=== PATIENT | female | born 1985 | race Caucasian/White ===

== ENCOUNTER 2022-11-15 14:54 | Emergency (ER) | payer MEDICAID, SELFPAY ==
[2022-11-15] VITALS (30 sets, daily range): BP systolic 113–159; BP diastolic 67–116; PULSE 96–136; RESP 16–24; TEMP 36.7; O2SAT 93–99; BMI 42.4
--- NOTE | 2022-11-15 15:56 | CTR_ITS ---
PROCEDURE INFORMATION: Exam: CT Abdomen And Pelvis Without Contrast Exam date and time: 11/15/2022 5:06 PM Age: 37 years old Clinical indication: Abdominal pain; Generalized; Prior surgery; Surgery date: 6+ months; Surgery type: Barbie, hyst TECHNIQUE: Imaging protocol: Computed tomography of the abdomen and pelvis without contrast. Radiation optimization: All CT scans at this facility use at least one of these dose optimization techniques: automated exposure control; mA and/or kV adjustment per patient size (includes targeted exams where dose is matched to clinical indication); or iterative reconstruction. REPORTING DATA: Count of CT and Cardiac NM exams in prior 12 months: This patient has received 0 known CTs and 0 known cardiac nuclear medicine studies in the 12 months prior to the current study. COMPARISON: No relevant prior studies available. RADIATION DOSE METRICS: Total DLP (mGy-cm): 993 FINDINGS: Lungs: No infiltrate or effusion is seen within the visualized lung bases. Liver: Normal. No mass. Gallbladder and bile ducts: Surgical clips within the gallbladder fossa, prior cholecystectomy. No biliary ductal dilatation. Pancreas: Normal. No ductal dilation. Spleen: Normal. No splenomegaly. Adrenal glands: Normal. No mass. Kidneys and ureters: Subtle punctate nonobstructing right renal calculus. Kidneys appear unremarkable otherwise. Stomach and bowel: Unremarkable. No obstruction. No mucosal thickening. Appendix: No evidence of appendicitis. Intraperitoneal space: Unremarkable. No free air. No significant fluid collection. Vasculature: Unremarkable. No abdominal aortic aneurysm. Lymph nodes: Unremarkable. No enlarged lymph nodes. Urinary bladder: Suboptimal urinary bladder distention Reproductive: Suggestion of prior hysterectomy. Bones/joints: No acute osseous abnormality. Soft tissues: Tiny umbilical hernia fat. CT/CT abdomen pelvis wo con [id number] IMPRESSION: 1. Previous cholecystectomy and hysterectomy. 2. Subtle tiny punctate nonobstructing right renal calculus. 3. Urinary bladder is suboptimally distended with the exam. 4. No acute findings.
--- NOTE | 2022-11-15 15:56 | W.ED.NAVMDI ---
Documented by User: Stanislav Rudd DO 11/16/22 06:00 HPI - Nausea/Vomiting/Diarrhea General: Chief complaint: Nausea/Vomiting/Diarrhea Stated complaint: N/V, Right side abd pain Time Seen by Provider: 11/15/22 15:45 Source: patient Mode of arrival: ambulatory History of Present Illness: 37-year-old female presents emergency room complaining of right lower quadrant abdominal pain. States that she has had nausea vomiting for last 4 days the pain is progressively gotten worse specially in the last 24 hours. She has been vomiting multiple times she denies any medication melena hematemesis cough cramps no dysuria urgency or frequency she has noticed if she presses on the side it will help but when she lets up the pain intensifies significantly. No hematemesis or coffee-ground emesis MD elicited complaint: nausea and vomiting Onset (ago): day(s) (4) Description of vomiting: watery and bilious Associated nausea: Yes Associated abdominal pain: Yes Location of pain: None Radiation: diffuse Severity: mild Quality: cramping Exacerbating factors: none Relieving factors: none Associated symtoms: Reports bloating and nausea; Denies anxiety, change in vision, chest pain, cough, diaphoresis, decreased urine output, dizziness, dysuria, epistaxis, fatigue, fecal incontinence, fevers/chills, headache(s), anorexia, malaise, myalgias, numbness, palpitations, rash, short of breath, syncope, tenesmus, tinnitus or weakness Review of Systems Const: Denies: fever(s), fatigue, malaise or diaphoresis Eyes: Denies: change in vision ENMT: Denies: tinnitus or epistaxis Card: Denies: chest pain, palpitations or syncope Resp: Denies: dyspnea, productive cough or non-productive cough GI: Reports: abdominal pain, nausea, vomiting, bloating and GI cramping; Denies: hematemesis, diarrhea or fecal incontinence : Denies: dysuria Skin/Breast: Denies: rash or pruritus Neuro: Denies: headache(s) or dizziness Psych: Denies: anxiety PFSH ED PFSH: Surgical History (Updated 11/15/22 @ 15:59 by Stanislav Rudd DO) Hx of cholecystectomy Physical Exam Const: GENERAL APPEARANCE: cooperative and comfortable ORIENTATION/CONSCIOUSNESS: Yes awake, Yes oriented to person, Yes oriented to place and Yes oriented to time HENMT: COMMON NORMALS: normocephalic, atraumatic and hearing grossly normal bilaterally HEAD & SCALP: normocephalic and atraumatic Resp: COMMON NORMALS: normal respiratory effort, No retractions, No use of accessory muscles and clear to auscultation bilaterally AUSCULTATION: clear to auscultation bilaterally Cardio: COMMON NORMALS: regular rate, regular rhythm and No murmurs present (Cardio) RATE: regular rate RHYTHM: regular rhythm GI: COMMON NORMALS: No hepatosplenomegaly present AUSCULTATION: Yes normoactive bowel sounds PALPATION: Yes Tenderness to palpation present (GI) Details: RLQ, Yes Guarding due to palpation present (GI) in the RLQ and Yes No hepatosplenomegaly present Extremity: COMMON NORMALS: normal to inspection, capillary refill normal, no clubbing, cyanosis or edema, no calf tenderness and no pedal edema Neuro: SENSORIUM/ORIENTATION: Yes oriented to person, Yes oriented to place and Yes oriented to time Skin: COMMON NORMALS: no rashes or lesions noted GENERAL SKIN EXAM: no rashes or lesions noted Course Vital Signs: Vital signs: Vital Signs Temperature 98.1 F 11/15/22 20:27 Pulse Rate 96 11/15/22 20:27 Respiratory Rate 16 11/15/22 20:27 Blood Pressure 150/100 11/15/22 20:27 Pulse Oximetry 97 11/15/22 20:27 Oxygen Delivery Me thod Room Air 11/15/22 16:27 MDM - Nausea/Vomiting/Diarrhea Medical Decision Making Care signed out to Dr. Barksdale at change of shift. See final notes for diagnosis and disposition. Patient presents with lower abdominal pain here and did show trichomonas did a pelvic exam she had some slight discharge no signs of PID mild cervicitis did treat her with Rocephin azithromycin we will place her on Flagyl for home along with nausea medicine she is to follow-up with PCP and return if worsening. Lab Data 11/15/22 15:53 11/15/22 15:53 Radiology Impressions Abdomen/Pelvis CT 11/15/22 15:56 IMPRESSION: 1. Previous cholecystectomy and hysterectomy. 2. Subtle tiny punctate nonobstructing right renal calculus. 3. Urinary bladder is suboptimally distended with the exam. 4. No acute findings. Pelvis Ultrasound 11/15/22 18:02 IMPRESSION: 1. Surgical absence of the uterus and cervix. 2. Unable to visualize the right ovary. 3. 1.6 cm mildly irregular cyst of the left ovary. 4. No free fluid. 5. Unremarkable appearance of the appendix in the right lower quadrant. Laboratory Results WBC 10.1 10^3/uL (4.0-10.0) H 11/15/22 15:53 RBC 5.34 10^6/uL (4.1-5.3) H 11/15/22 15:53 Hgb 16.4 g/dL (11.5-15.3) H 11/15/22 15:53 Hct 46.9 % (37.0-47.0) 11/15/22 15:53 MCV 87.8 fl (81-99) 11/15/22 15:53 MCH 30.7 pg (28.0-34.0) 11/15/22 15:53 MCHC 35.0 g/dL (30.0-36.0) 11/15/22 15:53 RDW 11.6 % (12.1-15.1) L 11/15/22 15:53 Plt Count 183 10^3/cmm (130-400) 11/15/22 15:53 MPV 12.9 fL (7.4-10.4) H 11/15/22 15:53 Neut % (Auto) 64.4 % 11/15/22 15:53 Lymph % (Auto) 27.2 % 11/15/22 15:53 [place] % (Auto) 6.5 % 11/15/22 15:53 Eos % (Auto) 1.5 % 11/15/22 15:53 Baso % (Auto) 0.2 % 11/15/22 15:53 Neut # (Auto) 6.52 10^3/uL (1.8-7.7) 11/15/22 15:53 Lymph # (Auto) 2.8 10^3/uL (0.8-4.8) 11/15/22 15:53 Trinity # (Auto) 0.7 10^3/uL (0.2-0.9) 11/15/22 15:53 Eos # (Auto) 0.2 10^3/uL (0.0-0.8) 11/15/22 15:53 Baso # (Auto) 0.0 10^3/uL (0.0-0.1) 11/15/22 15:53 Nucleated RBC % (auto) 0 % 11/15/22 15:53 Nucleated RBCs # 0.0 /100WBC 11/15/22 15:53 Sodium 140 mmol/L (136-145) 11/15/22 15:53 Potassium 3.5 mmol/L (3.5-5.1) 11/15/22 15:53 Chloride 103 mmol/L (98-107) 11/15/22 15:53 Carbon Dioxide 26 mmol/L (22-29) 11/15/22 15:53 Anion Gap 14.5 (5-19) 11/15/22 15:53 BUN 10 mg/dL (6-20) 11/15/22 15:53 Creatinine 0.7 mg/dL (0.5-0.9) 11/15/22 15:53 GFR Calculation 94.2 mL/min (90-130) 11/15/22 15:53 Glucose 101 mg/dL (65-115) 11/15/22 15:53 Calculated Osmolality 289 mOsm/kg (285-295) 11/15/22 15:53 Calcium 9.3 mg/dL (8.5-10.5) 11/15/22 15:53 Total Bilirubin 0.4 mg/dL (0.15-1.2) 11/15/22 15:53 AST 24 U/L (0-32) 11/15/22 15:53 ALT 36 U/L (0-33) H 11/15/22 15:53 Alkaline Phosphatase 57 U/L (35-105) 11/15/22 15:53 Total Protein 6.7 g/dL (6.6-8.7) 11/15/22 15:53 Albumin 4.1 g/dL (3.5-5.2) 11/15/22 15:53 Globulin 2.6 g/dL (1.3-4.6) 11/15/22 15:53 Lipase 33 U/L (13-60) 11/15/22 15:53 HCG, Qual Negative (Negative) 11/15/22 15:53 Urine Color Yellow (Yellow) 11/15/22 17:00 Urine Appearance Hazy (CLEAR) A 11/15/22 17:00 Urine pH 9 (5-7) H 11/15/22 17:00 Ur Specific [place] 1.015 (1.005-1.030) 11/15/22 17:00 Urine Protein Neg (Negative) 11/15/22 17:00 Urine Glucose (UA) Norm (Normal) 11/15/22 17:00 Urine Ketones Negative (Negative) 11/15/22 17:00 Urine Blood Neg (Negative) 11/15/22 17:00 Urine Nitrate Negative (Negative) 11/15/22 17:00 Urine Bilirubin Neg (Negative) 11/15/22 17:00 Prot Sulfosalicylic Acd Negative (Negative) 11/15/22 17:00 Urine Urobilinogen 4 mg/dL (Negative) H 11/15/22 17:00 Ur Leukocyte Esterase Negative (Negative) 11/15/22 17:00 Urine RBC Rare /hpf (0-2) 11/15/22 17:00 Urine WBC Rare /hpf (0-5) 11/15/22 17:00 Ur Squamous Epith Cells 25-40 /hpf (0-5) H 11/15/22 17:00 Amorphous Sediment Not Reportable 11/15/22 17:00 Urine Bacteria Trace /hpf (NONE) 11/15/22 17:00 Urine Trichomonas 2+ /hpf H 11/15/22 17:00 Discharge Plan Discharge Patient Disposition: Home Clinical Impression: Abdominal pain, Infection due to trichomonas (vaginalis) Condition: Stable Prescriptions: New metronidazole 500 mg tablet 500 mg PO Q8H 7 Days Qty: 21 0RF ondansetron 4 mg tablet,disintegrating 4 mg PO Q6H PRN (Reason: nausea and vomiting) Qty: 14 0RF tramadol 50 mg tablet 50 mg PO Q8H PRN (Reason: pain) Qty: 20 0RF Discharge Orders: Discharge ED (Routine); Ordered 11/15/22 Ordered By: Chandler Jasso Referrals: Bryce Strickland FNP [Primary Care Provider] - 1-3 days Discharge Diet: Advance as tolerated Discharge Activity: Resume usual activity Patient Instructions: Trichomoniasis (ED), Abdominal Pain (ED), Opioid Safety Coding Level of Care 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 Fwd Documented by User: Chandler Jasso MD 11/15/22 20:32 HPI - Nausea/Vomiting/Diarrhea General: Chief complaint: Nausea/Vomiting/Diarrhea Stated complaint: N/V, Right side abd pain Time Seen by Provider: 11/15/22 15:45 PFSH ED PFSH: Surgical History (Updated 11/15/22 @ 15:59 by Stanislav Rudd DO) Hx of cholecystectomy Course Vital Signs: Vital signs: Vital Signs Temperature 98.1 F 11/15/22 20:27 Pulse Rate 96 11/15/22 20:27 Respiratory Rate 16 11/15/22 20:27 Blood Pressure 150/100 11/15/22 20:27 Pulse Oximetry 97 11/15/22 20:27 Oxygen Delivery Me thod Room Air 11/15/22 16:27 MDM - Nausea/Vomiting/Diarrhea Medical Decision Making Patient presents with lower abdominal pain here and did show trichomonas did a pelvic exam she had some slight discharge no signs of PID mild cervicitis did treat her with Rocephin azithromycin we will place her on Flagyl for home along with nausea medicine she is to follow-up with PCP and return if worsening. Medical Records I reviewed the patient's medical records. Lab Data I reviewed the patient's lab results. 11/15/22 15:53 11/15/22 15:53 Radiology Impressions Abdomen/Pelvis CT 11/15/22 15:56 IMPRESSION: 1. Previous cholecystectomy and hysterectomy. 2. Subtle tiny punctate nonobstructing right renal calculus. 3. Urinary bladder is suboptimally distended with the exam. 4. No acute findings. Pelvis Ultrasound 11/15/22 18:02 IMPRESSION: 1. Surgical absence of the uterus and cervix. 2. Unable to visualize the right ovary. 3. 1.6 cm mildly irregular cyst of the left ovary. 4. No free fluid. 5. Unremarkable appearance of the appendix in the right lower quadrant. Laboratory Results WBC 10.1 10^3/uL (4.0-10.0) H 11/15/22 15:53 RBC 5.34 10^6/uL (4.1-5.3) H 11/15/22 15:53 Hgb 16.4 g/dL (11.5-15.3) H 11/15/22 15:53 Hct 46.9 % (37.0-47.0) 11/15/22 15:53 MCV 87.8 fl (81-99) 11/15/22 15:53 MCH 30.7 pg (28.0-34.0) 11/15/22 15:53 MCHC 35.0 g/dL (30.0-36.0) 11/15/22 15:53 RDW 11.6 % (12.1-15.1) L 11/15/22 15:53 Plt Count 183 10^3/cmm (130-400) 11/15/22 15:53 MPV 12.9 fL (7.4-10.4) H 11/15/22 15:53 Neut % (Auto) 64.4 % 11/15/22 15:53 Lymph % (Auto) 27.2 % 11/15/22 15:53 Trinity % (Auto) 6.5 % 11/15/22 15:53 Eos % (Auto) 1.5 % 11/15/22 15:53 Baso % (Auto) 0.2 % 11/15/22 15:53 Neut # (Auto) 6.52 10^3/uL (1.8-7.7) 11/15/22 15:53 Lymph # (Auto) 2.8 10^3/uL (0.8-4.8) 11/15/22 15:53 Trinity # (Auto) 0.7 10^3/uL (0.2-0.9) 11/15/22 15:53 Eos # (Auto) 0.2 10^3/uL (0.0-0.8) 11/15/22 15:53 Baso # (Auto) 0.0 10^3/uL (0.0-0.1) 11/15/22 15:53 Nucleated RBC % (auto) 0 % 11/15/22 15:53 Nucleated RBCs # 0.0 /100WBC 11/15/22 15:53 Sodium 140 mmol/L (136-145) 11/15/22 15:53 Potassium 3.5 mmol/L (3.5-5.1) 11/15/22 15:53 Chloride 103 mmol/L (98-107) 11/15/22 15:53 Carbon Dioxide 26 mmol/L (22-29) 11/15/22 15:53 Anion Gap 14.5 (5-19) 11/15/22 15:53 BUN 10 mg/dL (6-20) 11/15/22 15:53 Creatinine 0.7 mg/dL (0.5-0.9) 11/15/22 15:53 GFR Calculation 94.2 mL/min (90-130) 11/15/22 15:53 Glucose 101 mg/dL (65-115) 11/15/22 15:53 Calculated Osmolality 289 mOsm/kg (285-295) 11/15/22 15:53 Calcium 9.3 mg/dL (8.5-10.5) 11/15/22 15:53 Total Bilirubin 0.4 mg/dL (0.15-1.2) 11/15/22 15:53 AST 24 U/L (0-32) 11/15/22 15:53 ALT 36 U/L (0-33) H 11/15/22 15:53 Alkaline Phosphatase 57 U/L (35-105) 11/15/22 15:53 Total Protein 6.7 g/dL (6.6-8.7) 11/15/22 15:53 Albumin 4.1 g/dL (3.5-5.2) 11/15/22 15:53 Globulin 2.6 g/dL (1.3-4.6) 11/15/22 15:53 Lipase 33 U/L (13-60) 11/15/22 15:53 HCG, Qual Negative (Negative) 11/15/22 15:53 Urine Color Yellow (Yellow) 11/15/22 17:00 Urine Appearance Hazy (CLEAR) A 11/15/22 17:00 Urine pH 9 (5-7) H 11/15/22 17:00 Ur Specific [place] 1.015 (1.005-1.030) 11/15/22 17:00 Urine Protein Neg (Negative) 11/15/22 17:00 Urine Glucose (UA) Norm (Normal) 11/15/22 17:00 Urine Ketones Negative (Negative) 11/15/22 17:00 Urine Blood Neg (Negative) 11/15/22 17:00 Urine Nitrate Negative (Negative) 11/15/22 17:00 Urine Bilirubin Neg (Negative) 11/15/22 17:00 Prot Sulfosalicylic Acd Negative (Negative) 11/15/22 17:00 Urine Urobilinogen 4 mg/dL (Negative) H 11/15/22 17:00 Ur Leukocyte Esterase Negative (Negative) 11/15/22 17:00 Urine RBC Rare /hpf (0-2) 11/15/22 17:00 Urine WBC Rare /hpf (0-5) 11/15/22 17:00 Ur Squamous Epith Cells 25-40 /hpf (0-5) H 11/15/22 17:00 Amorphous Sediment Not Reportable 11/15/22 17:00 Urine Bacteria Trace /hpf (NONE) 11/15/22 17:00 Urine Trichomonas 2+ /hpf H 11/15/22 17:00 Discharge Plan Discharge Patient Disposition: Home Clinical Impression: Abdominal pain, Infection due to trichomonas (vaginalis) Condition: Stable Prescriptions: New metronidazole 500 mg tablet 500 mg PO Q8H 7 Days Qty: 21 0RF ondansetron 4 mg tablet,disintegrating 4 mg PO Q6H PRN (Reason: nausea and vomiting) Qty: 14 0RF tramadol 50 mg tablet 50 mg PO Q8H PRN (Reason: pain) Qty: 20 0RF Discharge Orders: Discharge ED (Routine); Ordered 11/15/22 Ordered By: Chandler Jasso Referrals: Bryce Strickland FNP [Primary Care Provider] - 1-3 days Discharge Diet: Advance as tolerated Discharge Activity: Resume usual activity Patient Instructions: Trichomoniasis (ED), Abdominal Pain (ED), Opioid Safety Coding Level of Care Code ED Welding Machine Operator Electro Gas for Jed Mckeon
[2022-11-15 16:08] LABS: Basophils % 0.2 %; Eosinophils # 0.2 10^3/uL (0.0-0.8); Eosinophils % 1.5 %; Hematocrit 46.9 % (37.0-47.0); Hemoglobin 16.4 g/dL (11.5-15.3); Lymphocytes # 2.8 10^3/uL (0.8-4.8); Lymphocytes % 27.2 %; Mean Corpuscular Hemoglobin 30.7 pg (28.0-34.0); Mean Corpuscular Volume 87.8 fl (81-99); Mean Platelet Volume 12.9 fL (7.4-10.4); Monocytes # 0.7 10^3/uL (0.2-0.9); Monocytes % 6.5 %; Neutrophils # 6.52 10^3/uL (1.8-7.7); Neutrophils % 64.4 %; Nucleated Red Blood Cells % 0 %; Platelet Count 183 10^3/cmm (130-400); Red Blood Count 5.34 10^6/uL (4.1-5.3); Red Cell Distribution Width 11.6 % (12.1-15.1); White Blood Count 10.1 10^3/uL (4.0-10.0)
[2022-11-15] MEDS: sodium chloride 0.9% 1,000 ML 999 ML IV (16:21)
[2022-11-15] MEDS: ondansetron 2 mg/ML SDV 2 mL 4 MG IVP (16:21)
[2022-11-15 16:27] LABS: Alanine Aminotransferase 36 U/L (0-33); Albumin Level 4.1 g/dL (3.5-5.2); Alkaline Phosphatase 57 U/L (35-105); Anion Gap 14.5 (5-19); Aspartate Amino Transferase 24 U/L (0-32); Blood Urea Nitrogen 10 mg/dL (6-20); Calcium 9.3 mg/dL (8.5-10.5); Carbon Dioxide 26 mmol/L (22-29); Chloride 103 mmol/L (98-107); Globulin 2.6 g/dL (1.3-4.6); Glomerular Filtration Rate 94.2 mL/min (90-130); Glucose 101 mg/dL (65-115); Lipase 33 U/L (13-60); Osmolality Calculated 289 mOsm/kg (285-295); Potassium 3.5 mmol/L (3.5-5.1); Sodium 140 mmol/L (136-145); Total Bilirubin 0.4 mg/dL (0.15-1.2); Total Protein 6.7 g/dL (6.6-8.7)
[2022-11-15 16:29] LABS: HCG, Serum Qual Negative (Negative)
[2022-11-15 17:24] LABS: Add Urine Microscopic? YES; Bilirubin Urine Neg (Negative); Blood Urine Neg (Negative); Glucose Urine UA Norm (Normal); Ketones Urine Negative (Negative); Leukocyte Esterase Urine Negative (Negative); Nitrate Urine Negative (Negative); Protein Urine Neg (Negative); Specific Gravity, Urine 1.015 (1.005-1.030); Sulfosalicylic Acid Urine Negative (Negative); Urine Appearance Hazy (CLEAR); Urine Color Yellow (Yellow); Urobilinogen Urine 4 mg/dL (Negative); pH Urine 9 (5-7)
[2022-11-15 17:25] LABS: RBC Urine RARE /hpf (0-2); WBC Urine RARE /hpf (0-5)
[2022-11-15 17:26] LABS: Add Urine Culture? No; Bacteria Urine TRACE /hpf; Squamous Epithelial Cell Urine 25-40 /hpf (0-5); Trichomonas Urine 2+ /hpf
--- NOTE | 2022-11-15 18:02 | USR_ITS ---
PROCEDURE INFORMATION: Exam: US Nonobstetric Pelvis; Complete Exam date and time: 11/15/2022 6:19 PM Age: 37 years old Clinical indication: Abdominal pain and pelvic pain; Right lower quadrant; Prior surgery; Surgery date: 6+ months; Surgery type: Partial hysterectomy due to cervical CA 2012. A vaginal cuff remains. Both ovaries remain. TECHNIQUE: Imaging protocol: Transabdominal pelvic nonobstetric ultrasound. Complete exam. Real time ultrasound with image documentation. COMPARISON: CT abdomen pelvis wo con [id number] 11/15/2022 5:06 PM FINDINGS: Uterus: Surgical absence Cervix: Surgical absence. Right ovary/adnexa: Unable to visualize the right ovary. Left ovary/adnexa: Left ovary measures 2.8 x 3 x 1.8 cm and demonstrates approximally 1.6 cm irregular shaped cyst. Vascular flow is identified. Appendix: Evaluation of the right lower quadrant demonstrates normal compressible appendix. Intraperitoneal space: No free fluid is seen within the dependent pelvis. Urinary bladder: Not evaluated US/US pelvic complete* [id number] IMPRESSION: 1. Surgical absence of the uterus and cervix. 2. Unable to visualize the right ovary. 3. 1.6 cm mildly irregular cyst of the left ovary. 4. No free fluid. 5. Unremarkable appearance of the appendix in the right lower quadrant.
[2022-11-15] MEDS: morphine 4 mg/mL SDV 1 mL IVP (18:09)
[2022-11-15] MEDS: HYDROmorphone 1 mg/mL INJ 1 mL IVP (18:46)
[2022-11-15] MEDS: azithromycin 250 mg Tablet 1000 MG PO (20:14)
[2022-11-15] MEDS: cefTRIAXone 500 MG in water for injection-sterile 1 ML IM (20:15)
== END 2022-11-15 20:29 | disposition home or self-care (01) ==
PROVIDERS: Family Medicine; Emergency Provider Emergency Medicine; PCP Nurse Practitioner Family
DX: R10.31 Right lower quadrant pain (principal); A59.01 Trichomonal vulvovaginitis
CPT/HCPCS: 36415; 74176; 76856; 80053; 81001; 83690; 84703; 85025; 87210; 87491; 87591; 96361; 96372; 96374; 96375; 99285; J0696; J1170; J2270; J2405; J7030; Q0144

== ENCOUNTER 2022-12-24 13:29 | Outpatient (CLI) | payer BC, MEDICAID, SELFPAY ==
--- NOTE | 2022-12-24 13:40 | XR_ITS ---
WS: [id number] XR thoracic spine 3V* [id number] REASON FOR EXAM: back pain FINDINGS: Relatively normal thoracic spine curvatures. No significant vertebral body abnormality Mild narrowing of the intervertebral disc spaces in the mid and lower thoracic spine with moderate to significant anterior osteophytosis. XR/XR thoracic spine 3V* [id number] IMPRESSION: Moderate to significant degenerative spondylosis in the thoracic spine.
--- NOTE | 2022-12-24 13:40 | XR_ITS ---
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 There is straightening of the normal lordosis of the cervical spine. There is been previous anterior plate and screw fixation with interbody fusion device at C5-C6. The v ertebrae appear fused. Mild narrowing of the disc spaces at C6-C7 and C7-T1. No significant spondylolisthesis demonstrated. XR/XR cervical spine 3V* [id number] IMPRESSION: Degenerative spondylosis and postoperative changes of the cervical spine as abo ve.
--- NOTE | 2022-12-24 13:40 | XR_ITS ---
WS: [email or web address] XR lumbar spine 2-3V* [id number] REASON FOR EXAM: back pain FINDINGS: Mild rotatory scoliosis of the lumbar spine convex left. Mild straightening of the normal lordosis. No significant vertebral body abnormality. Intervertebral disc spaces are intact and relatively well-preserved. Small anterior osteophytes L2-L5. Mild degenerative changes in the facet joints L4-S1. 3 mm of anterolisthesis of L3 in relation to L2 and L4 in relation to L3. XR/XR lumbar spine 2-3V* [id number] IMPRESSION: Degenerative spondylosis of the lumbar spine as above.
== END 2022-12-24 13:30 | disposition home or self-care (01) ==
PROVIDERS: PCP Family Medicine; Visit Provider Family Medicine
DX: M54.41 Lumbago with sciatica, right side (principal); M47.814 Spondylosis without myelopathy or radiculopathy, thoracic region; M47.816 Spondylosis without myelopathy or radiculopathy, lumbar region; M47.812 Spondylosis without myelopathy or radiculopathy, cervical region; G89.29 Other chronic pain; M54.2 Cervicalgia; E03.9 Hypothyroidism, unspecified; E78.5 Hyperlipidemia, unspecified; R79.89 Other specified abnormal findings of blood chemistry
CPT/HCPCS: 72040; 72072; 72100; 80053; 80061; 83036; 84403; 84439; 84443

== ENCOUNTER 2023-01-25 07:40 | Outpatient (CLI) | payer BC, MEDICAID, SELFPAY ==
--- NOTE | 2023-01-25 08:00 | MR_ITS ---
WS: [id number] MRI CERVICAL SPINE NONCONTRAST TECHNIQUE: Sagittal T1, T2 and STIR imaging. Axial T2, gradient, and fiesta imaging. CLINICAL INFORMATION: neck pain, previous cervical fusion COMPARISON: None. FINDINGS: Straightening of the normal cervical lordosis. Prior postoperative changes anterior cervical fusion C 5-C6. Congenital segmentation anomaly C2-C3. C2-C3: Congenital segmentation anomaly C2-C3. Spinal canal and foramen are patent. C3-C4: Mild disc bulging with osteophytic ridging. Moderate LEFT bony foraminal narrowing. Mild facet arthropathy. C4-C5: Disc osteophyte complex with endplate ridging. Moderate RIGHT foraminal narrowing. Mild facet arthropathy. C5-C6: Postoperative changes ACDF. Mild facet arthropathy. Spinal canal is patent. Mild LEFT bony for aminal narrowing. C6-C7: Postoperative changes anterior fusion. Moderate bilateral bony foraminal narrowing. Mild facet arthropathy. Shallow central disc bulging with slight effacement of the ventral thecal sac. C7-T1: Minimal disc bulging. Spinal canal and foramen are patent. T1-T2: Tiny RIGHT pericentral protrusion T1-T2. Retention cyst or polyp RIGHT maxillary sinus partially visualized measuring 1.6 cm. Visualized brain stem structures: Normal. Prevertebral soft tissues: Normal. MR/MR cervical spin wo con* [id number] IMPRESSION: 1. Straightening of the normal cervical lordosis with ACDF C5-C6. 2. Cord signal is normal. No high-grade central canal narrowing. 3. Congenital segmentation anomaly C2-C3. 4. Moderate LEFT C3-C4, RIGHT C4-C5, and bilateral C6-C7 bony foraminal narrow ing. 5. Shallow central disc bulging C6-C7 with slight effacement of ventral thecal sac. 6. Small RIGHT pericentral protrusion T1-T2 only covered on the sagittal imagi ng.
--- NOTE | 2023-01-25 08:45 | MR_ITS ---
WS: [email or web address] MRI LUMBAR SPINE NONCONTRAST TECHNIQUE: Sagittal T1, T2 and STIR imaging. Axial T1 and T2 imaging. CLINICAL INFORMATION: low back pain with radiculopathy COMPARISON: None. FINDINGS: Mild lumbar curve. No acute compression. Minimal retrolisthesis L3 on L4. No high-grade central canal narrowing. L1-L2: Mild facet arthropathy. Spinal canal and foramen are patent. L2-L3: Mild facet arthropathy. Minimal disc bulging. Spinal canal and foramen are patent. L3-L4: Mild annular bulging with slight effacement of the ventral thecal sac. Mild facet arthropathy. Spinal canal and foramen are patent. L4-L5: Mild annular bulging. Mild facet arthropathy. Mild RIGHT and no significant LEFT foraminal rod rowing. Spinal canal is patent. L5-S1: Tiny LEFT pericentral protrusion with slight contact of the LEFT S1 nerve root. Mild facet art hropathy. Spinal canal and foramen are patent. Visualized pelvic bony structures: Normal. Paravertebral soft tissues: Normal. MR/MR lumbar spine wo con* [id number] IMPRESSION: 1. Mild lumbar curve. No acute compression. No high-grade central canal stenos is. 2. Tiny RIGHT foraminal protrusion L4-L5 with mild RIGHT foraminal narrowing. 3. Shallow LEFT pericentral protrusion L5-S1 with slight contact of the LEFT S 1 nerve root. 4. Mild facet arthropathy worse L4-L5 and L5-S1.
== END 2023-01-25 07:41 | disposition home or self-care (01) ==
PROVIDERS: PCP Family Medicine; Visit Provider Orthopaedic Surgery
DX: M54.2 Cervicalgia (principal); M54.41 Lumbago with sciatica, right side; G89.29 Other chronic pain; M48.02 Spinal stenosis, cervical region; M50.223 Other cervical disc displacement at C6-C7 level
CPT/HCPCS: 72141; 72148

== ENCOUNTER 2023-02-06 07:57 | Outpatient (CLI) | payer BC, MEDICAID, SELFPAY ==
--- NOTE | 2023-02-06 08:30 | US_ITS ---
WS: [email or web address] THYROID ULTRASOUND HISTORY: E03.9 - Hypothyroidism, unspecified COMPARISON: None available. Right lobe: 1.2 cm x 1.4 cm x 4.3 cm (w x ap x l). Volume: 3.6 cm3. Normal size and echotexture. No significant are dominant nodules are present. Left lobe: 1.3 cm x 0.8 cm x 3.5 cm (w x ap x l). Volume: 1.8 cm3. Normal size and echotexture. No significant or dominant nodules are present. Isthmus: 0.1 cm. US/US thyroid [id number] IMPRESSION: Normal thyroid ultrasound.
== END 2023-02-06 07:58 | disposition home or self-care (01) ==
PROVIDERS: PCP Family Medicine; Visit Provider Nurse Practitioner Family
DX: E03.9 Hypothyroidism, unspecified (principal)
CPT/HCPCS: 76536

== ENCOUNTER 2023-02-06 09:23 | Oncology outpatient (recurring) (ONCR) | payer BC, MEDICAID, SELFPAY ==
[2023-02-06 11:24] VITALS: BP 118/83; PULSE 99; RESP 18; TEMP 36.6; O2SAT 95
[2023-02-06 11:38] LABS: Ferritin 129 ng/mL (15-150)
== END 2023-02-11 23:59 | disposition home or self-care (01) ==
PROVIDERS: PCP Family Medicine; Visit Provider Internal Medicine Medical Oncology
DX: E83.119 Hemochromatosis, unspecified (principal); T38.7X1A Poisoning by androgens and anabolic congeners, accidental (unintentional), initial encounter; D75.1 Secondary polycythemia
CPT/HCPCS: 81256; 82728; 99195

== ENCOUNTER 2023-02-22 12:05 | Observation (INO) | payer BC, MEDICAID, SELFPAY ==
[2023-02-21 12:24] VITALS: BMI 40.2
[2023-02-22] VITALS (18 sets, daily range): BP systolic 105–144; BP diastolic 68–89; PULSE 91–108; RESP 16–18; TEMP 36.4–37.3; O2SAT 91–100; BMI 38.2
[2023-02-22] MEDS: sodium chloride 0.9% 1,000 ML 30 ML IV (07:22)
[2023-02-22] MEDS: scopolamine 1.5 Patch 1 PATCH TRANSDERMA (07:25)
--- NOTE | 2023-02-22 07:38 | ANES.PREANE2 ---
Pre-Anesthetic Assessment Height/Weight: Height 1.65 m Weight 104.326 kg Temp Pulse Resp BP Pulse Ox O2 Del Method 97.6 F 93 18 125/89 98 Room Air 02/22/23 07:06 02/22/23 07:06 02/22/23 07:06 02/22/23 07:06 02/22/23 07:06 02/22/23 07:06 Preop Diagnosis: Cervical spondylosis with radiculopathy Operation Date: 02/22/23 08:15 Proposed Procedures p ACDF 96059 C4/5, 12005 C6/7, 66180 x2 Cage, 65875 Instrumentation, 27340 Allograft, 00173 navigation, poss Hardware Removal: M47.22, M54.41, G89.29(Not Applicable) - Deric Camp, Familial anesthetic complications: None Was Beta Bryce taken within 24 hours: N/A Was Clonidine taken within 24 hours: N/A Last intake: Intake Last Liquid Date 02/21/23 Last Liquid Time 21:00 Last Solid Date 02/21/23 Last Solid Time 21:00 Social No alcohol and No tobacco Exam alert, oriented x 3, clear to auscultation bilaterally and regular rate & rhythm Airway Mallampati: Class III Dentition: full GI Gastroesophageal Reflux Disease Metabolic Morbid Obesity and Thyroid Disease hemochromatosis - phelobotomy prior week Anesthetic Plan ASA status: 3 Anesthesia: MAC Risk of > 500 ml blood loss (7ml/kg in children): No Medications/Allergies Home Medications Medication Instructions Recorded Confirmed Last Taken Type metformin 500 mg tablet,extended 1,000 mg PO DAILY #60 tabs 01/01/23 02/21/23 02/21/23 Rx release 24hr alprazolam 0.5 mg tablet 0.5 mg PO DAILY #30 tabs 01/23/23 02/21/23 02/21/23 Rx dulaglutide 0.75 mg/0.5 mL 0.75 mg (0.5 mL) SUBCUT .q7days #2 01/23/23 02/21/23 02/13/23 Rx subcutaneous pen injector mL (Trulicity) levothyroxine 125 mcg capsule 125 mcg PO DAILY #30 caps 01/23/23 02/21/23 02/21/23 Rx pregabalin 75 mg capsule (Lyrica) 75 mg PO BID #60 caps 01/23/23 02/21/23 02/21/23 Rx thyroid (pork) 30 mg tablet 30 mg PO DAILY #30 tabs 01/23/23 02/21/23 02/21/23 Rx apple cider vinegar 500 mg tablet 1,000 mg PO DAILY 02/14/23 02/21/23 02/21/23 History niacin 500 mg tablet 500 mg PO DAILY 02/14/23 02/21/23 02/21/23 History oxycodone-acetaminophen 5 mg-325 1 tab PO Q6H 7 days #28 tabs 02/15/23 02/21/23 02/21/23 Rx mg tablet intraoperative neurophysiological #1 ea 02/21/23 Unknown Rx monitoring Allergies Allergy/AdvReac Type Severity Reaction Status Date / Time codeine Allergy ALGY-Rash Verified 02/21/23 12:15 diphenhydramine Allergy ALGY-Anaphy Verified 02/21/23 12:15 [From Benadryl] laxis hydrocodone Allergy ALGY-Rash Verified 02/21/23 12:15 latex Allergy ALGY-Bliste Verified 02/21/23 12:15 r liraglutide [From Victoza] Allergy ADR-Abdominal Verified 02/21/23 12:15 Pain Sulfa (Sulfonamide Allergy ADR-Nausea Verified 02/21/23 12:15 Antibiotics) Current Medications Generic Name Dose Route Start Last Admin Trade Name Freq PRN Reason Stop Dose Admin Sodium Chloride 1,000 mls @ 30 mls/hr 02/22/23 07:00 02/22/23 07:22 Sodium Chloride 0.9% IV 02/23/23 06:59 30 mls/hr .Q24H DENITA Administration PFSH Anesthesia Surgical History History of back surgery 2019 fusion c5/6 History of bilateral breast reduction surgery age 14 History of hysterectomy partial; one ovary remaining ~2009 Dr. Rain History of sinus surgery ~2018 OPHELIA Chatterjee Hx of cholecystectomy ~2012 OPHELIA Otto Family History Father Cancer nose removal Diabetes Hyperlipidemia Mother Cancer estrogen driven breast cancer Clotting disorder clotting disorder unknown Diabetes Hyperlipidemia Hypertension Stroke Grandmother Cancer leukemia(maternal) Dementia Diabetes Grandfather Cancer lung cancer(maternal) Diabetes maternal Lung disease maternal Grandfather Diabetes maternal Grandmother Diabetes paternal Brother Diabetes Family/Other Psychiatric illness maternal uncle Other Anesthesia complication Denies family history of CAD (coronary artery disease) Chronic kidney disease (CKD) Suicide Bleeding disorder Family history of premature coronary artery disease Social History Smoking and tobacco status: never smoked Second hand smoke exposure: No Alcohol intake: never Substance/Drug Use: never Data Anesthesia Cardiac Studies: No Data to Display
[2023-02-22] MEDS: fentaNYL 50 mcg/mL INJ 2mL IVP (08:11)
--- NOTE | 2023-02-22 08:18 | W.PM.OPSUD ---
Surgery/Procedure H&P Update DATE OF PROCEDURE: February 22, 2023 DATE H&P PERFORMED: 02/14/23 H&P UPDATE INFORMATION: I have reviewed H&P completed within last 30 days, I have examined patient prior to procedure and No changes to prior documentation PREOP DIAGNOSIS: Cervical spondylosis with radiculopathy PLANNED PROCEDURE: Operation Date: 02/22/23 08:15 Proposed Procedures p ACDF 89521 C4/5, 56730 C6/7, 86413 x2 Cage, 11675 Instrumentation, 37508 Allograft, 34706 navigation, poss Hardware Removal: M47.22, M54.41, G89.29(Not Applicable) - Deric Camp,
[2023-02-22] MEDS: ceFAZolin 2,000 MG in sodium chloride 0.9% (plus) 50 ML 100 MG IV ×2 (08:40→15:52)
[2023-02-22] MEDS: lidocaine-epi 2% 20 mL INJ INJECTION (09:24)
[2023-02-22 10:01] LABS: Glucose Point of Care 101 mg/dL (70-110)
--- NOTE | 2023-02-22 11:33 | XR_ITS ---
WS: [id number] C-ARM RADIOGRAPHS CERVICAL SPINE; 3 IMAGES HISTORY: OR PICS COMPARISON: None available. Intraoperative imaging during anterior cervical fusion. Hardware extends at multiple levels involving the anterior cervix. Probably from C4-C7. Image quality is degraded by intraoperative technique. Pat ient is intubated. IMPRESSION: Intraoperative imaging during anterior cervical fusion.
--- NOTE | 2023-02-22 12:05 | ANE.PACU2 ---
Inpatient post-anesthesia follow up: Airway intact: Yes Vital signs: Temperature 97.6 F Pulse Rate 102 Respiratory Rate 18 Blood Pressure 139/89 Pulse Oximetry 98 Oxygen Delivery Me thod Room Air Oxygen Flow Rate 8 Fraction of Inspir ed Oxygen Hydration adequate: Yes Nausea and vomiting: No Pain level: 1 Mental status: Baseline
--- NOTE | 2023-02-22 12:27 | P.OP_ITS ---
Operative Report Date of procedure: February 22, 2023 Pre-op diagnosis: Preop Diagnosis Cervical spondylosis with radiculopathy Post-op diagnosis: same Procedure done: 1. Anterior diskectomy C4/5 2. Anterior discectomy C6/7 3. Insertion of cage C4/5 4. Insertion of Cage C6/7 5. Instrumentation with anterior plate from C4-C7 6. Removal of plate at C5/6 7. Use of allograft Surgeon: Deric Camp Vacation Planner: None Estimated blood loss (mL): 50 Procedure: 1. Anterior diskectomy C4/5 2. Anterior discectomy C6/7 3. Insertion of cage C4/5 4. Insertion of Cage C6/7 5. Instrumentation with anterior plate from C4-C7 6. Removal of plate at C5/6 7. Use of allograft The patient was taken to the operating room, where he underwent general endotracheal anesthesia without complications. He was then positioned supine on the operating table, and all areas of impingement were well padded. The arms were carefully padded and tucked at his sides. A roll was placed between the shoulder blades.. An x-ray was done to determine the appropriate level for the skin incision. The entire neck was then sterilely prepped and draped in the usual fashion. Neuromonitoring was attached prior to prepping. A transverse skin incision was made and carried down to the platysma muscle. This was then split in line with its fibers. Blunt dissection was carried down medial to the carotid sheath and lateral to the trachea and esophagus until the anterior cervical spine was visualized. A needle was placed into a disc and an x-ray was done to determine its location. The longus colli muscles were then elevated bilaterally with the electrocautery unit. Self-retaining retractors were placed deep to the longus colli muscle. Patient brought to the plate at C5-6. The retractors were placed and the plate was identified. Once the pins identified the screws were locked and then they were backed out. And then the plate was removed. This was at the C5-6 level. Attention was brought to the C4/5 level that was confirmed on x-ray. A caspar pin was placed into the C4 vertebrae and the C5 vertebrae. The disk space was then distracted. The microscope was then brought in. A radical anterior discectomies were performed at C4/5. This included complete removal of the anterior annulus, nucleus, and posterior annulus. The posterior longitudinal ligament was removed as were the posterior osteophytes. Foraminotomies were then accomplished bilaterally. This was done using a high speed daina, kerrison rongeurs and curretes Once all of this was accomplished, the curved currette was used to check for any residual compression. The central canal was wide open as were the foramen. A high-speed bur was used to remove the cartilaginous endplates above and below the interspace. Bleeding cancellous bone was exposed. The disc space were measured and appropriate size cage were placed sterilely onto the field. Allograft graft was packed into the cages. The cage was then placed and there was good juxtaposition against the bleeding decorticated surfaces and good distraction of each interspace. Attention was brought to the next interspace. The [place] pins were removed. Bone wax was used to prevent any bleeding from occurring at the pin sites. Attention was brought to the C6/7 level that was confirmed on x-ray. A caspar pin was placed into the C6 vertebrae and the C7 vertebrae. The disk space was then distracted. The microscope was then brought in. A radical anterior discectomies were performed at C6/7. This included complete removal of the anterior annulus, nucleus, and posterior annulus. The posterior longitudinal ligament was removed as were the posterior osteophytes. Foraminotomies were then accomplished bilaterally. This was done using a high speed daina, kerrison rongeurs and curretes Once all of this was accomplished, the curved currette was used to check for any residual compression. The central canal was wide open as were the foramen. A high-speed bur was used to remove the cartilaginous endplates above and below the interspace. Bleeding cancellous bone was exposed. The disc space were measured and appropriate size cage were placed sterilely onto the field. Allograft graft was packed into the cages. The cage was then placed and there was good juxtaposition against the bleeding decorticated surfaces and good distraction of each interspace. Attention was brought to the next interspace. The [place] pins were removed. Bone wax was used to prevent any bleeding from occurring at the pin sites. The appropriate size anterior cervical locking plate was chosen and bent into gentle lordosis. The plate bridge across the previous C5-6 ACDF. Two screws were then placed into each of the vertebral bodies at C4, C5, C6 and C7. There was excellent purchase. A final x-ray was done confirming good position of the hardware and Cages. The locking screws were then applied, also with excellent purchase. Following a final copious irrigation, there was good hemostasis and no dural leaks. The carotid pulse was strong. The wounds were then closed in layers using 2-0 Vicryl suture for the platysma muscle, 2-0 Vicryl suture for the subcutaneous tissue, and 4-0 monocryl suture in a subcuticular skin closure. Glue was placed followed by application of a sterile dressing. The drain was hooked to bulb suction. A soft collar was applied. The patient was then carefully returned to the supine position on his hospital bed where he was reversed and extubated and taken to the recovery room having tolerated the procedure well.
[2023-02-22] MEDS: morphine 4 mg/mL SDV 1 mL 2 MG IVP ×2 (13:07→19:23)
[2023-02-22] MEDS: ondansetron 2 mg/ML SDV 2 mL 4 MG IVP ×2 (13:10→18:29)
[2023-02-22] MEDS: ketorolac 30 mg/mL INJ IVP (15:53)
[2023-02-22] MEDS: lactated ringers 1,000 ML 90 ML IV (18:30)
[2023-02-22] MEDS: docusate sodium 100 mg Capsule PO (18:31)
[2023-02-22] MEDS: pregabalin 75 mg Capsule PO (18:31)
[2023-02-22] MEDS: oxyCODONE-APAP 5-325 mg Tablet PO (20:05)
[2023-02-23] VITALS (9 sets, daily range): BP systolic 112–129; BP diastolic 62–81; PULSE 72–97; RESP 14–18; TEMP 36.7–36.9; O2SAT 96
[2023-02-23] MEDS: oxyCODONE-APAP 5-325 mg Tablet PO ×4 (00:01→12:15)
[2023-02-23] MEDS: ceFAZolin 2,000 MG in sodium chloride 0.9% (plus) 50 ML 100 MG IV ×2 (00:02→08:41)
[2023-02-23] MEDS: lactated ringers 1,000 ML 90 ML IV (05:23)
[2023-02-23] MEDS: thyroid 60 mg Tablet 30 MG PO (08:41)
[2023-02-23] MEDS: ALPRAZolam 0.5 mg Tablet PO (08:42)
[2023-02-23] MEDS: metformin 500 mg Tablet 1000 MG PO (08:42)
[2023-02-23] MEDS: docusate sodium 100 mg Capsule PO (08:44)
[2023-02-23] MEDS: levothyroxine 125 mcg Tablet PO (08:44)
[2023-02-23] MEDS: pregabalin 75 mg Capsule PO (08:44)
--- NOTE | 2023-02-23 09:46 | PM.DCS ---
Discharge Providers Date of Admission: 02/22/23 12:05 Date of Discharge: February 23, 2023 Attending Provider at Admission: Deric Camp DO Attending Provider at Discharge: Deric Camp DO Primary Care Provider: Carnia Ricketts MD Reason for Visit Reason for Visit: M47.22, M54.41, G89.29 Discharge Data Studies Completed and Pending Completed Studies During Hospitalization Category Date Time Status XR cervical spine 3V* 13132 Routine Exams 02/22/23 11:33 Completed Laboratory Results POC Glucose 101 mg/dL (70-110) 02/22/23 07:19 Vitals Last Vital Signs Temp 98.5 F 02/23/23 07:07 Pulse 73 02/23/23 07:07 Resp 18 02/23/23 08:42 BP 115/66 02/23/23 07:07 Pulse Ox 96 02/23/23 07:07 O2 Del Method Room Air 02/23/23 04:00 O2 Flow Rate 8 02/22/23 11:38 Discharge Plan Discharge Condition: Stable Prescriptions: New oxycodone-acetaminophen 5-325 mg tablet 1 - 2 tab PO Q4H PRN (Reason: pain) 7 Days Qty: 40 0RF Continued thyroid (pork) 30 mg tablet 30 mg PO DAILY Qty: 30 2RF pregabalin [Lyrica] 75 mg capsule 75 mg PO BID Qty: 60 2RF levothyroxine 125 mcg capsule 125 mcg PO DAILY Qty: 30 2RF alprazolam 0.5 mg tablet 0.5 mg PO DAILY Qty: 30 2RF Trulicity 0.75 mg/0.5 mL pen injector 0.75 mg SUBCUT .q7days Qty: 2 2RF Rx Instructions: on wednesdays niacin 500 mg tablet 500 mg PO DAILY apple cider vinegar 500 mg tablet 1,000 mg PO DAILY oxycodone-acetaminophen 5-325 mg tablet 1 tab PO Q6H 7 Days Qty: 28 0RF metformin 500 mg tablet extended release 24hr 1,000 mg PO DAILY Qty: 60 3RF (DME) intraoperative neurophysiological monitoring See Rx Instructions .Route .MEDSUPPLY Qty: 1 0RF Rx Instructions: As directed Discharge Orders: Discharge Order (Routine); Ordered 02/23/23 Ordered By: Deric Camp Discharge Diet: Advance as tolerated Discharge Activity: Limit activity as instructed Patient Instructions: Opioid Safety Activity Restrictions/Additional Instructions: Thank you for choosing [facility] for your care! The following is a list of instructions, from your provider, to follow upon your discharge to ensure you have the optimal recovery from your recent injury or surgery. Anterior Cervical Discectomy and Fusion: What to Expect at Home Your Recovery Follow-up care is a laughlin part of your treatment and safety. Be sure to make and go to all appointments, and call your doctor if you are having problems. If you do not already have a follow-up appointment made, call office in the next 1-3 days to make follow up appointment for 2 weeks at [phone]. It is also a good idea to know your test results and keep a list of the medicines you take. You can expect your neck to feel stiff or sore after surgery. This should improve in the weeks after surgery. But it may take 4 to 6 months for you to get better completely. You may have trouble sitting or standing in one position for very long and may need pain medicine in the weeks after your surgery. It may take 4 to 6 weeks to get back to your usual activities, but it may depend on what kind of surgery you had. Your throat will feel sore and it may be difficult to swallow for the first 3 days after your surgery. As long as you can get liquids down without difficulty, this should slowly improve, otherwise call our office or seek medical attention if it becomes increasingly difficult to get anything down including liquids. Avoid hot liquids for first 3-5 days. Soothing foods/liquids such as jello, pudding, and luke warm soups are recommended until swallowing improves. Staying elevated will also help, it's advised you keep propped up at while sleeping to help reduce the swelling. You may use an ice pack directly on your incision or around it on the front of your neck, using a cloth to protect your skin; and a heating pad to the back of your neck as needed. Do not use over the counter anti-inflammatory medications (Ibuprofen, Motrin, Aleve, Advil, etc) Taking these meds after having a fusion can delay fusion rates, we recommend you avoid them for the first 3 months after your surgery[address] Dr. Camp may advise you to work with a physical therapist to strengthen the muscles around your neck and back - this will be discussed at your follow - up appointments. The pain or numbness you were having in your arms before surgery should get better or go away completely. This care sheet gives you a general idea about how long it will take for you to recover. But each person recovers at a different pace. Follow the steps below to get better as quickly as possible. How can you care for yourself at home? Activity ? Rest when you feel tired. Getting enough sleep will help you recover. ? Try to walk each day. Start by walking a little more than you did the day before. Bit by bit, increase the amount you walk. Walking boosts blood flow and helps prevent pneumonia and constipation. Walking may also decrease your muscle soreness after surgery. ? No lifting anything that is more that 5 pounds. This may include heavy grocery bags and milk containers, a heavy briefcase or backpack, cat litter or dog food bags, a child, or a vacuum filter screen cleaner. ? Avoid strenuous activities, such as bicycle riding, jogging, weightlifting, or aerobic exercise, until your doctor says it is okay. ? Do not drive until your follow-up visit after your surgery, or until your doctor says it isokay. ? Avoid taking long car trips for 2 to 4 weeks after surgery. Your neck may become tired and painful from sitting too long in one position. ? You will probably need to take 4 to 6 weeks off from work. It depends on the type of work you do and how you feel. ? You may have sex as soon as you feel able, but avoid positions that put stress on your neck or cause pain. Diet ? You can eat your normal diet. If your stomach is upset, try bland, low-fat foods like plain rice, broiled chicken, toast, and yogurt ? Drink plenty of fluids. If you have kidney, heart, or liver disease and have to limit fluids, talk with your doctor before you increase the amount of fluids you drink. ? You may notice that your bowel movements are not regular right after your surgery. This is common. Try to avoid constipation and straining with bowel movements. You may want to take a fiber supplement every day. If you have not had a bowel movement after a couple of days, ask your doctor about taking a mild laxative. Medicines ? Take pain medicines exactly as directed. 1. If Dr. Camp gave you a prescription medicine for pain, take lt as prescribed. 2. Do not take two or more pain medicines at the same time unless the doctor told you to. Many pain medicines have acetaminophen, which is Tylenol. Too much acetaminophen {Tylenol) can be harmful. 3. If you think your pain pill is making you sick to your stomach: 4. Take your pills after meals (unless your doctor has told you not to). 5. Ask your Dr. for a different pain pill. Incisioncare ? Remove your dressing 48hours after your surgery. Ok to shower and get the incision wet. Do not overtly wash your incision. When done, pad dry, leave open to air thereafter. Avoid creams and ointments directly on your incision. ? Your sutures in the incision will dissolve and fall out on their own. ? Keep the area clean and dry. You may cover it with a gauze bandage if it weeps or rubs against clothing; if you choose to do this, change the dressing everyday. Other instructions ? Use a heating pad, hot water bottle, or gentle massage on your back to reduce stiffness. Avoid putting heat on your incision When should you call for help? ? Call 911 anytime you think you may need emergency care. For example, call if: ? You pass out (lose consciousness). ? You have sudden chest pain and shortness of breath, or you cough upblood. ? You cannot swallow. ? You have severe pain in your neck or back. ? Call your Dr. or seek immediate medical care if: ? You have pain that does not get better after you take pain pills. ? You have loose stitches, or your incision comes open. ? You have blood or fluid draining from the incision. ? You have signs of infection, such as: 1. Increased pain, swelling, warmth, or redness. 2. Red streaks leading from the site. 3. Pus draining from the site. 4. Swollen lymph nodes in your neck or armpits. 5. A fever. ? You have severe pain in your arms. ? You have new or increased weakness or numbness in your arms. ? Watch closely for any changes in your health, and be sure to contact your doctor if: ? You do not have a bowel movement after taking a laxative. Discharge Attestations Time Spent in Discharge Care*: less than 30 min Quality Metrics Clinical Quality Measures [ No reported AMI, CVA or VTE this stay] Coding Level of Care Code Acute Code for Chg Fwd Diagnoses
== END 2023-02-23 12:29 | disposition home or self-care (01) ==
LOC: MEDSURG 17:17
PROVIDERS: Admitting Provider Orthopaedic Surgery; PCP Family Medicine; Visit Provider Orthopaedic Surgery
PROC: 0RB30ZZ Excision of Cervical Vertebral Disc, Open Approach (ICD-10-PCS; CPT 22551; principal; 2023-02-22 08:15)
PROC: (CPT 20930; 2023-02-22 08:15)
DX: M47.22 Other spondylosis with radiculopathy, cervical region (principal); Z79.899 Other long term (current) drug therapy; Z79.84 Long term (current) use of oral hypoglycemic drugs; Z79.85 Long-term (current) use of injectable non-insulin antidiabetic drugs; Z88.2 Allergy status to sulfonamides
CPT/HCPCS: 20930; 22551; 22552; 22845; 22853 ×2; 36416; 72040; 76000; 82962; 97110; 97161; C1713; C1763; C9359; G0378; J0690; J1100; J1170; J1885; J2270; J2371; J2405; J2704; J3010; J3490; J7030; J7120; L0172

== ENCOUNTER 2023-03-07 12:00 | Oncology outpatient (recurring) (ONCR) | payer BC, MEDICAID, SELFPAY ==
[2023-02-13 08:07] VITALS: BP 126/85; PULSE 109; TEMP 36.4; O2SAT 97
[2023-02-28 08:50] VITALS: BP 186/100; PULSE 90; RESP 16; TEMP 36.6; O2SAT 98
[2023-02-28 09:01] LABS: Basophils # 0.1 10^3/uL (0.0-0.1); Basophils % 0.6 %; Eosinophils # 0.8 10^3/uL (0.0-0.8); Eosinophils % 9.3 %; Hematocrit 43.1 % (37.0-47.0); Hemoglobin 15.1 g/dL (11.5-15.3); Lymphocytes # 2.9 10^3/uL (0.8-4.8); Lymphocytes % 32.1 %; Mean Corpuscular Hemoglobin 30.6 pg (28.0-34.0); Mean Corpuscular Volume 87.4 fl (81-99); Mean Platelet Volume 11.9 fL (7.4-10.4); Monocytes # 0.6 10^3/uL (0.2-0.9); Monocytes % 6.6 %; Neutrophils # 4.55 10^3/uL (1.8-7.7); Neutrophils % 51.3 %; Nucleated Red Blood Cells % 0 %; Platelet Count 225 10^3/cmm (130-400); Red Blood Count 4.93 10^6/uL (4.1-5.3); Red Cell Distribution Width 11.9 % (12.1-15.1); White Blood Count 8.9 10^3/uL (4.0-10.0)
[2023-02-28 09:23] VITALS: BP 137/94; PULSE 91; RESP 18; TEMP 36.8; O2SAT 99
[2023-02-28 09:25] LABS: Iron 60 ug/dL (37-145)
[2023-03-07 12:21] VITALS: BP 126/81; PULSE 88; RESP 17; TEMP 36.6; O2SAT 97
[2023-03-07 12:24] LABS: Basophils # 0.1 10^3/uL (0.0-0.1); Basophils % 0.7 %; Eosinophils # 0.7 10^3/uL (0.0-0.8); Eosinophils % 7.3 %; Hematocrit 43.9 % (36-47); Lymphocytes # 3.3 10^3/uL (0.8-4.8); Mean Corpuscular HGB Conc 34.6 g/dL (30-55); Mean Corpuscular Hemoglobin 30.4 pg (27-33); Mean Corpuscular Volume 87.8 fl (85-98); Mean Platelet Volume 12.2 fL (7.4-10.4); Monocytes # 0.6 10^3/uL (0.2-0.9); Monocytes % 6.4 %; Neutrophils # 5.01 10^3/uL (1.8-7.7); Neutrophils % 51.4 %; Nucleated Red Blood Cells % 0 %; Platelet Count 279 10^3/cmm (157-399); Red Cell Distribution Width 11.8 % (12.1-15.1); White Blood Count 9.74 10^3/uL (3.29-11.43)
== END 2023-03-14 23:59 | disposition home or self-care (01) ==
PROVIDERS: PCP Family Medicine; Visit Provider Internal Medicine Medical Oncology
DX: E83.119 Hemochromatosis, unspecified (principal)
CPT/HCPCS: 36415; 80053; 81003; 83540; 85025; 99195

== ENCOUNTER → 2023-04-02 08:31 | Outpatient (BNVA) | payer BC, MEDICAID, SELFPAY | PROVIDERS: PCP Family Medicine; Visit Provider Orthopaedic Surgery | DX: Z98.1 Arthrodesis status; Z47.89 Encounter for other orthopedic aftercare | CPT/HCPCS: 72040 ==

== ENCOUNTER 2023-04-17 12:05 | Oncology outpatient (recurring) (ONCR) | payer BC, MEDICAID, SELFPAY ==
[2023-04-17 12:42] VITALS: BP 125/85; PULSE 98; RESP 16; TEMP 36.4; O2SAT 98
[2023-04-17 13:12] LABS: Basophils # 0.1 10^3/uL (0.0-0.1); Basophils % 0.5 %; Eosinophils # 0.3 10^3/uL (0.0-0.8); Eosinophils % 3.2 %; Hematocrit 45.5 % (36-47); Lymphocytes # 3.3 10^3/uL (0.8-4.8); Lymphocytes % 33.6 %; Mean Corpuscular HGB Conc 35.2 g/dL (30-55); Mean Corpuscular Hemoglobin 29.9 pg (27-33); Mean Corpuscular Volume 84.9 fl (85-98); Mean Platelet Volume 12.6 fL (7.4-10.4); Monocytes # 0.6 10^3/uL (0.2-0.9); Monocytes % 5.8 %; Neutrophils # 5.57 10^3/uL (1.8-7.7); Neutrophils % 56.6 %; Nucleated Red Blood Cells % 0 %; Platelet Count 238 10^3/cmm (157-399); Red Blood Count 5.36 10^6/uL (3.85-5.65); Red Cell Distribution Width 11.7 % (12.1-15.1); White Blood Count 9.85 10^3/uL (3.29-11.43)
[2023-04-17 13:35] LABS: Alanine Aminotransferase 30 U/L (0-33); Albumin Level 4.7 g/dL (3.5-5.2); Alkaline Phosphatase 56 U/L (35-105); Anion Gap 16.9 (5-19); Aspartate Amino Transferase 28 U/L (0-32); Blood Urea Nitrogen 12 mg/dL (6-20); Calcium 9.5 mg/dL (8.5-10.5); Carbon Dioxide 23 mmol/L (22-29); Chloride 101 mmol/L (98-107); Chol HDL Ratio 4.92 mg/dL (0.0-4.40); Cholesterol 187 mg/dL (0-200); Globulin 2.8 g/dL (1.3-4.6); Glomerular Filtration Rate 80.3 mL/min (90-130); Glucose 119 mg/dL (65-115); HDL Cholesterol 38 mg/dL (60-100); LDL Cholesterol Calculated 115 mg/dL (50-129); LDL HDL Ratio 3.03 RATIO (0.00-3.22); Osmolality Calculated 285 mOsm/kg (285-295); Potassium 3.9 mmol/L (3.5-5.1); Sodium 137 mmol/L (136-145); Testosterone Total 18.9 ng/dL (8.4-48.1); Thyroid Stimulating Hormone 0.09 uIU/mL (0.27-4.20); Total Bilirubin 0.5 mg/dL (0.15-1.2); Total Protein 7.5 g/dL (6.6-8.7); Triglycerides 170 mg/dL (0-150)
[2023-04-17 13:36] LABS: Estmated Average Glucose 91; Hemoglobin A1C 4.8 % (4.0-6.0)
[2023-04-17 15:37] LABS: Ferritin 48 ng/mL (15-150)
[2023-04-26 15:49] LABS: CALR Exon 9 Mutation NOT DETECTED (NOT DETECTED); CSF3R Exon 14/17 Mutation NOT DETECTED (NOT DETECTED); JAK2 Exon 12 Mutation NOT DETECTED (NOT DETECTED); JAK2 V617 Block Specimen ID NG; JAK2 V617 Clinical Indication NG; JAK2 V617 Mutation NOT DETECTED (NOT DETECTED); JAK2 V617 Specimen Source NG; MPL Exon 12 Mutation NOT DETECTED (NOT DETECTED)
== END 2023-05-14 23:59 | disposition home or self-care (01) ==
PROVIDERS: Internal Medicine Medical Oncology; Nurse Practitioner Family; PCP Family Medicine; Visit Provider Internal Medicine Medical Oncology
DX: E83.119 Hemochromatosis, unspecified (principal); T38.7X1A Poisoning by androgens and anabolic congeners, accidental (unintentional), initial encounter; D75.1 Secondary polycythemia; Y99.9 Unspecified external cause status; Z01.818 Encounter for other preprocedural examination
CPT/HCPCS: 36415; 80053; 80061; 81270; 81279; 81339; 81479; 82728; 83036; 84403; 84443; 85025

== ENCOUNTER 2023-04-26 08:27 | Outpatient (CLI) | payer BC, MEDICAID, SELFPAY ==
--- NOTE | 2023-04-26 09:06 | MM_ITS ---
WS: [id number] Bilateral screening 3D tomosynthesis digital mammogram, 04/26/2023 Clinical Data: SCREEN Comparison: None. Findings: The breast parenchymal pattern shows fibroglandular tissue. No spiculated masses or clustered calcifi cations are seen. There are no secondary signs of carcinoma. Impression: 1. Negative bilateral mammogram with no prior exam for review. Recommend annual screening mammograms . MM/[place] [id number] BIRADS: 1-Negative FOLLOW UP: 1 Year Follow-up The CAD credit report checker was used.
== END 2023-04-26 08:28 | disposition home or self-care (01) ==
LOC: RAD 08:27
PROVIDERS: PCP Family Medicine; Visit Provider Nurse Practitioner Family
DX: Z12.31 Encounter for screening mammogram for malignant neoplasm of breast (principal)
CPT/HCPCS: 77063; 77067

== ENCOUNTER 2023-04-30 12:59 | Outpatient (CLI) | payer BC, MEDICAID, SELFPAY ==
--- NOTE | 2023-04-30 13:30 | XR_ITS ---
WS: [id number] SCREENING DEXA SCAN [employer] CLINICAL INFORMATION: Z78.0 - Asymptomatic menopausal state COMPARISON: None. FINDINGS: The L1-L4 bone mineral density measures 1.362 g/cm2. This corresponds to a T score score of 1.5 and Z score of 0.4. Left femoral neck bone mineral density measures 1.241 g/cm2. This corresponds to a T score of 1.9 and Z score of 1.2. Right femoral neck bone mineral density measures 1.206 g/cm2. This corresponds to a T score 1.6of and Z score of 0.9. Mean femoral neck bone mineral density measures 1.223 g/cm2. This corresponds to a T score of 1.7 and Z score of 1.1. IMPRESSION: Normal bone mineralization. FRAX score not calculated due to age out of range
== END 2023-04-30 13:00 | disposition home or self-care (01) ==
LOC: RAD 12:59
PROVIDERS: PCP Family Medicine; Visit Provider Nurse Practitioner Family
DX: Z78.0 Asymptomatic menopausal state (principal)
CPT/HCPCS: 77080

== ENCOUNTER → 2023-05-02 09:09 | Outpatient (BNVA) | payer BC, MEDICAID, SELFPAY | PROVIDERS: PCP Family Medicine; Visit Provider Orthopaedic Surgery | DX: Z98.1 Arthrodesis status (principal); M48.062 Spinal stenosis, lumbar region with neurogenic claudication; M51.16 Intervertebral disc disorders with radiculopathy, lumbar region | CPT/HCPCS: 36415; 72040; 80053; 81003; 83036; 85025 ==

== ENCOUNTER → 2023-05-06 09:41 | Outpatient (BNVA) | payer MEDICAID, SELFPAY | PROVIDERS: PCP Family Medicine; Visit Provider Otolaryngology | DX: R49.9 Unspecified voice and resonance disorder (principal); J38.01 Paralysis of vocal cords and larynx, unilateral; H92.09 Otalgia, unspecified ear | CPT/HCPCS: 31575; 99203; 99204 ==

== ENCOUNTER → 2023-05-09 10:22 | Outpatient (BNVA) | payer MEDICAID, SELFPAY | PROVIDERS: PCP Family Medicine; Visit Provider Internal Medicine Cardiovascular Disease | DX: R07.9 Chest pain, unspecified (principal) | CPT/HCPCS: 93005 ==

== ENCOUNTER 2023-05-14 07:12 | Outpatient (CLI) | payer MEDICAID, SELFPAY ==
--- NOTE | 2023-05-14 07:30 | CT_ITS ---
WS: [id number] CT SINUSES TECHNIQUE: Noncontrast CT of the paranasal sinuses with coronal and sagittal reformatted images. CLINICAL INFORMATION: sinuses COMPARISON: None. DLP: 391.[address] scans at [facility] use at least one of these dose optimization techniques: automated e xposure control; mA and/or kV adjustment per patient size (includes targeted exams where dose is matc hed to clinical indication); or iterative reconstruction. FINDINGS: Retention cyst or polyp RIGHT maxillary sinus measuring 1.9 x 1.2 cm. Paranasal sinuses are well aera david. Frontal sinuses are patent. Frontoethmoidal recesses are patent. Maxillary sinuses are otherwise well aerated. Normal sphenoid sinuses and sphenoid sinus ostia. Evidence of prior bilateral maxillary antrostomies with uncinectomies. Evidence of turbinate reductio ns. Ostiomeatal units are patent. RIGHT to LEFT nasal septal deviation measuring 3-4 mm. Normal posterior nasopharynx. Normal parapharyngeal fat. Visualized orbits are normal. IMPRESSION: 1. Mild RIGHT to LEFT nasal septal deviation measuring 3 to 4 mm. 2. Evidence of prior bilateral maxillary antrostomies with uncinectomies and turbinate reductions. O stiomeatal units are patent. 3. Retention cyst or polyp RIGHT maxillary sinus measuring 1.9 x 1.2 cm. 4. Paranasal sinuses are otherwise well aerated. 5. Mastoid air cells are well aerated. Normal posterior nasopharynx. 6. No other suspicious findings.
== END 2023-05-14 07:13 | disposition home or self-care (01) ==
LOC: RAD 07:12
PROVIDERS: PCP Family Medicine; Visit Provider Otolaryngology
DX: J38.01 Paralysis of vocal cords and larynx, unilateral (principal); R49.9 Unspecified voice and resonance disorder; J34.2 Deviated nasal septum
CPT/HCPCS: 70486

== ENCOUNTER 2023-05-20 11:15 | Oncology outpatient (recurring) (ONCR) | payer MEDICAID, SELFPAY ==
[2023-05-20 12:09] VITALS: BP 133/83; PULSE 88; RESP 16; TEMP 36.9; O2SAT 97
[2023-05-20 12:22] LABS: Basophils # 0.1 10^3/uL (0.0-0.1); Basophils % 0.6 %; Eosinophils # 0.4 10^3/uL (0.0-0.8); Lymphocytes # 2.8 10^3/uL (0.8-4.8); Lymphocytes % 36.3 %; Mean Corpuscular HGB Conc 33.8 g/dL (30-55); Mean Corpuscular Hemoglobin 29.2 pg (27-33); Mean Corpuscular Volume 86.5 fl (85-98); Monocytes # 0.6 10^3/uL (0.2-0.9); Monocytes % 7.6 %; Neutrophils # 3.93 10^3/uL (1.8-7.7); Neutrophils % 50.4 %; Nucleated Red Blood Cells % 0 %; Platelet Count 192 10^3/cmm (157-399); Red Cell Distribution Width 11.6 % (12.1-15.1)
[2023-05-20 12:50] LABS: Alanine Aminotransferase 33 U/L (0-33); Albumin Level 4.1 g/dL (3.5-5.2); Alkaline Phosphatase 51 U/L (35-105); Anion Gap 12.1 (5-19); Aspartate Amino Transferase 25 U/L (0-32); Blood Urea Nitrogen 10 mg/dL (6-20); Calcium 8.8 mg/dL (8.5-10.5); Carbon Dioxide 27 mmol/L (22-29); Chloride 106 mmol/L (98-107); Ferritin 31 ng/mL (15-150); Globulin 2.6 g/dL (1.3-4.6); Glomerular Filtration Rate 80.3 mL/min (90-130); Glucose 89 mg/dL (65-115); Iron 63 ug/dL (37-145); Osmolality Calculated 291 mOsm/kg (285-295); Percent Saturation 28.1 % (20-50); Potassium 4.1 mmol/L (3.5-5.1); Sodium 141 mmol/L (136-145); Total Bilirubin 0.3 mg/dL (0.15-1.2); Total Iron Binding Capacity 224 mcg/dl; Total Protein 6.7 g/dL (6.6-8.7); Unsaturated Iron Binding 161 ug/dL (112-347)
[2023-05-23 12:49] LABS: Erythropoietin 9.7 mIU/mL (2.6-18.5)
== END 2023-06-13 23:59 | disposition home or self-care (01) ==
PROVIDERS: Nurse Practitioner Family; PCP Family Medicine; Visit Provider Internal Medicine Medical Oncology
DX: E83.119 Hemochromatosis, unspecified (principal); T38.7X1A Poisoning by androgens and anabolic congeners, accidental (unintentional), initial encounter; D75.1 Secondary polycythemia; Y99.9 Unspecified external cause status; Z01.818 Encounter for other preprocedural examination
CPT/HCPCS: 36415; 80053; 82668; 82728; 83540; 83550; 85025

== ENCOUNTER 2023-05-28 10:41 | Outpatient (CLI) | payer MEDICAID, SELFPAY ==
[2023-05-28 11:49] LABS: Free T4 Free Thyroxine 1.49 ng/dL (0.82-1.77); T3 Free 2.8 PG/ML (2.0-4.4); Thyroid Stimulating Hormone 0.52 uIU/mL (0.27-4.20)
== END 2023-05-28 10:42 | disposition home or self-care (01) ==
PROVIDERS: PCP Family Medicine; Visit Provider Nurse Practitioner Family
DX: E05.90 Thyrotoxicosis, unspecified without thyrotoxic crisis or storm (principal)
CPT/HCPCS: 36415; 84439; 84443; 84481

== ENCOUNTER 2023-05-31 08:07 | Day surgery (SDC) | payer MEDICAID, SELFPAY ==
[2023-05-31] VITALS (14 sets, daily range): BP systolic 88–148; BP diastolic 54–93; PULSE 78–112; RESP 15–18; TEMP 36.2–37.1; O2SAT 95–100; BMI 33.3
--- NOTE | 2023-05-31 | XR_ITS ---
WS: [id number] INTRAOPERATIVE TECHNIQUE: 2 Spot fluoroscopic images for intraoperative purposes. FLUOROSCOPY TIME: 9.0 seconds CLINICAL INFORMATION: OR PICS-DONE 05/31 COMPARISON: None. FINDINGS: Localization marker projected over dorsal RIGHT L4-5 IMPRESSION: Images obtained for intraoperative purposes.
[2023-05-31] MEDS: sodium chloride 0.9% 1,000 ML 30 ML IV (08:28)
[2023-05-31] MEDS: scopolamine 1.5 Patch 1 PATCH TRANSDERMA (08:33)
--- NOTE | 2023-05-31 08:58 | ANES.PREANE2 ---
Pre-Anesthetic Assessment Height/Weight: Height 1.65 m Weight 90.718 kg Temp Pulse Resp BP Pulse Ox O2 Del Method 97.8 F 78 18 148/93 97 Room Air 05/31/23 08:19 05/31/23 08:19 05/31/23 08:19 05/31/23 08:33 05/31/23 08:19 05/31/23 08:19 Preop Diagnosis: Lumbar stenosis with neurogenic claudication Operation Date: 05/31/23 09:50 Proposed Procedures p Lumbar Spine Decompression Lumbar Decompression: right L4-5 minimally invasive decompression STAND ON THE LEFT(Right) - Deric Camp, Familial anesthetic complications: None Was Beta Bryec taken within 24 hours: N/A Was Clonidine taken within 24 hours: N/A Last intake: Intake Last Liquid Date 05/31/23 Last Liquid Time 06:00 Last Solid Date 05/30/23 Last Solid Time 21:00 Social No alcohol and No tobacco Exam alert, oriented x 3, clear to auscultation bilaterally and regular rate & rhythm Airway Mallampati: Class III Dentition: full Comments: Comments: unilateral vocal cord paralysis CV/HEM Palpitations Hepatic hemochromotosis - last phlebotomy in march, saying she hasn't needed them all that often recently, currently not symptomatic GI Gastroesophageal Reflux Disease Metabolic Diabetes Mellitus and Thyroid Disease Anesthetic Plan ASA status: 3 Anesthesia: General Risk of > 500 ml blood loss (7ml/kg in children): No Medications/Allergies Home Medications Medication Instructions Recorded Confirmed Last Taken Type oxycodone-acetaminophen 5 mg-325 1 tab PO Q6H 7 days #28 tabs 03/05/23 05/31/23 Unknown Rx mg tablet cyclobenzaprine 10 mg tablet 10 mg PO TID PRN muscle spasm #30 03/21/23 05/30/23 05/31/23 Rx tabs dulaglutide 0.75 mg/0.5 mL 0.75 mg (0.5 mL) SUBCUT .q7days #2 04/12/23 05/30/23 05/23/23 Rx subcutaneous pen injector mL (Trulicity) alprazolam 0.5 mg tablet 0.5 mg PO DAILY #30 tabs 04/19/23 05/30/23 05/27/23 Rx blood sugar diagnostic (Blood #50 ea 04/19/23 05/20/23 Unknown Rx Glucose Test strips) blood-glucose meter (Blood Glucose #1 ea 04/19/23 05/20/23 Unknown Rx Monitoring kit) lancets 28 gauge (Acti-Ovi #100 ea 04/19/23 05/20/23 Unknown Rx Lancets) levothyroxine 125 mcg capsule 125 mcg PO DAILY #30 caps 04/19/23 05/30/23 05/31/23 Rx pregabalin 100 mg capsule 100 mg PO BID #60 caps 04/19/23 05/30/23 05/30/23 Rx lansoprazole 15 mg capsule,delayed 15 mg PO DAILY 05/20/23 05/30/23 05/30/23 History release Allergies Allergy/AdvReac Type Severity Reaction Status Date / Time codeine Allergy ALGY-Rash Verified 05/31/23 08:15 diphenhydramine Allergy ALGY-Anaphy Verified 05/31/23 08:15 [From Benadryl] laxis hydrocodone Allergy ALGY-Rash Verified 05/31/23 08:15 latex Allergy ALGY-Bliste Verified 05/31/23 08:15 r liraglutide [From Victoza] Allergy ADR-Abdominal Verified 05/31/23 08:15 Pain Sulfa (Sulfonamide Allergy ADR-Nausea Verified 05/31/23 08:15 Antibiotics) Current Medications Generic Name Dose Route Start Last Admin Trade Name Freq PRN Reason Stop Dose Admin Sodium Chloride 1,000 mls @ 30 mls/hr 05/31/23 08:15 05/31/23 08:28 Sodium Chloride 0.9% IV 06/01/23 08:14 30 mls/hr .Q24H DENITA Administration PFSH Anesthesia Surgical History History of back surgery 2019 fusion c5/6 History of bilateral breast reduction surgery age 14 History of hysterectomy partial; one ovary remaining ~2009 Dr. Rain History of neck surgery History of sinus surgery ~2018 OPHELIA Chatterjee Hx of cholecystectomy ~2012 OPHELIA Otto Family History Father Cancer nose removal Diabetes Hyperlipidemia Mother Cancer estrogen driven breast cancer Clotting disorder clotting disorder unknown Diabetes Hyperlipidemia Hypertension Stroke Grandmother Cancer leukemia(maternal) Dementia Diabetes Grandfather Cancer lung cancer(maternal) Diabetes maternal Lung disease maternal Grandfather Diabetes maternal Grandmother Diabetes paternal Brother Diabetes Family/Other Psychiatric illness maternal uncle Other Anesthesia complication Denies family history of CAD (coronary artery disease) Chronic kidney disease (CKD) Suicide Bleeding disorder Family history of premature coronary artery disease Social History Smoking and tobacco/nicotine status: never used tobacco/nicotine Second hand smoke exposure: No Alcohol intake: never Substance/Drug Use: never Data Anesthesia Cardiac Studies: No Data to Display
[2023-05-31] MEDS: fentaNYL 50 mcg/mL INJ 2mL IVP (09:03)
--- NOTE | 2023-05-31 09:20 | W.PM.OPSUD ---
Surgery/Procedure H&P Update DATE OF PROCEDURE: May 31, 2023 DATE H&P PERFORMED: 05/16/23 H&P UPDATE INFORMATION: I have reviewed H&P completed within last 30 days, I have examined patient prior to procedure and No changes to prior documentation PREOP DIAGNOSIS: Lumbar stenosis with neurogenic claudication PLANNED PROCEDURE: Operation Date: 05/31/23 09:50 Proposed Procedures p Lumbar Spine Decompression Lumbar Decompression: right L4-5 minimally invasive decompression STAND ON THE LEFT(Right) - Deric Camp DO
[2023-05-31] MEDS: ceFAZolin 2,000 MG in sodium chloride 0.9% (plus) 50 ML 100 MG IV (09:42)
[2023-05-31] MEDS: lidocaine-epi 1% 20 mL INJ INJECTION (10:10)
[2023-05-31] MEDS: HYDROmorphone 1 mg/mL INJ 1 mL 0.5 MG IVP (10:56)
--- NOTE | 2023-05-31 11:00 | P.OP_ITS ---
Operative Report Date of procedure: May 31, 2023 Pre-op diagnosis: Lumbar stenosis L4-5 with radiculopathy down the right leg Post-op diagnosis: same Procedure done: L4-5 laminectomy with partial facetectomy Surgeon: Deric Camp DO Blasting Helper: Stephon Sloan Blasting Helper: The ophthalmology surgical technician, JESÚS Loo was needed for his expertise under the microscope. He was important and necessary throughout the procedure to complete in a safe and timely manner. He assisted with patient positioning prepping and draping tissue retraction suctioning of the operative field protection of the dural sac and tissue closure Estimated blood loss (mL): 5 Procedure: L4-5 laminectomy with partial facetectomy Patient is brought to the operative suite. After undergoing anesthesia they are placed in the prone position. All areas of impingement are well padded. Patient is then prepped and draped in the normal sterile fashion. A skin incision is made over the L4/5 level. This is confirmed under c-arm guidance. A series of dilators are passed and the tubular retractor is docked on the L4 lamina. A bovie is used to clear the soft tissue off the lamina and the L 4/5 facet joint. A high speed daina is then used to perform the laminectomy and take down the medial aspect of the L 4/5 facet joint. A kerrison rongeure was then used to take down the remaining lamina and smooth the edge of the laminectomy up to the point where the ligamentum flavum attaches. Attention was then brought to the medial aspect of the facet joint. The remaining medial aspect of the superior and inferior aspect of the facet joint were taken down with the kerrison from the pedicle of L4 to L 5. The facet joint had significant hypertrophy. Attention was then brought to the Ligamentum Flavum. The ligament was taken down from the lamina of L4 to L5 and out medially to the remaining facet joint. The ligament was thick. The dura was then exposed. The dura was in good repair. The L4 nerve was then traced with a curette out the L4/5 foramen and found to be adequately decompressed. The L5 nerve was traced with a curette around the L5 pedicle. The lateral recess was opened with a kerrison helping to further decompress the L5 nerve. Wound is then irrigated copiously with saline and surgiflo is used to stop any bleeding. The tubular retractor is removed and the wound is closed with vicryl and monocryl suture. Glue is then used to protect the wound. A sterile dressing is then placed. Patient was then placed in the supine position and transferred to the PACU in stable condition.
[2023-05-31] MEDS: ondansetron 2 mg/ML SDV 2 mL 4 MG IVP (11:17)
[2023-05-31] MEDS: oxyCODONE-APAP 10-325 mg Tablet 1 TAB PO (12:00)
--- NOTE | 2023-05-31 12:45 | ANE.PACU2 ---
Inpatient post-anesthesia follow up: Airway intact: Yes Vital signs: Temperature 98.7 F Pulse Rate 89 Respiratory Rate 16 Blood Pressure 134/83 Pulse Oximetry 97 Oxygen Delivery Me thod Room Air Oxygen Flow Rate Fraction of Inspir ed Oxygen Hydration adequate: Yes Nausea and vomiting: No Pain level: 1 Mental status: Baseline
== END 2023-05-31 12:46 | disposition home or self-care (01) ==
PROVIDERS: PCP Family Medicine; Visit Provider Orthopaedic Surgery
PROC: (CPT 63005; principal; 2023-05-31 09:50)
DX: M48.061 Spinal stenosis, lumbar region without neurogenic claudication (principal); K21.9 Gastro-esophageal reflux disease without esophagitis; E11.9 Type 2 diabetes mellitus without complications
CPT/HCPCS: 63047; 72020; 76000; J0690; J1100; J1170; J2250; J2405; J2710; J3010; J3490; J7030

== ENCOUNTER 2023-09-11 10:19 | Day surgery (SDC) | payer MEDICAID, SELFPAY ==
[2023-09-11] VITALS (13 sets, daily range): BP systolic 112–163; BP diastolic 79–97; PULSE 76–98; RESP 10–19; TEMP 36.2–36.9; O2SAT 93–100; BMI 43.2
[2023-09-11] MEDS: sodium chloride 0.9% 1,000 ML 30 ML IV (11:00)
[2023-09-11 11:06] LABS: Glucose Point of Care 82 mg/dL (70-110)
[2023-09-11] MEDS: scopolamine 1.5 Patch 1 PATCH TRANSDERMA (11:08)
--- NOTE | 2023-09-11 11:40 | ANES.PREANE2 ---
Pre-Anesthetic Assessment Height/Weight: Height 1.65 m Weight 117.934 kg Temp Pulse Resp BP Pulse Ox O2 Del Method 97.2 F L 97 17 139/93 97 Room Air 09/11/23 10:48 09/11/23 10:48 09/11/23 10:48 09/11/23 10:48 09/11/23 10:48 09/11/23 10:48 Preop Diagnosis: Chronic right maxillary sinusitis/deviated nasal septum/turbinate hypertrop Operation Date: 09/11/23 12:00 Proposed Procedures p Endoscopic Right Antrostomy [id number](Right) - Kingston Atwood MD s Maxillary Sinusectomy(Not Applicable) - Kingston Atwood MD s Septoplasty(Not Applicable) - Kingston Atwood MD s Turbinate Reduction(Not Applicable) - Kingston Atwood MD Familial anesthetic complications: none Was Beta Bryce taken within 24 hours: N/A Was Clonidine taken within 24 hours: N/A Last intake: Intake Last Liquid Date 09/10/23 Last Liquid Time 22:00 Last Solid Date 09/10/23 Last Solid Time 19:30 Social No alcohol and No tobacco Exam alert, oriented x 3, clear to auscultation bilaterally and regular rate & rhythm Airway Submandibular: within normal limits Cervical ROM: within normal limits Mallampati: Class II Dentition: full CV/HEM Palpitations GI Gastroesophageal Reflux Disease Metabolic Morbid Obesity Musc/skel Lower Back Pain Neuropsych Anxiety and Depression Anesthetic Plan ASA status: 3 Anesthesia: General Medications/Allergies Home Medications Medication Instructions Recorded Confirmed Last Taken Type alprazolam 0.5 mg tablet 0.5 mg PO DAILY #30 tabs 04/19/23 09/11/23 09/04/23 Rx blood sugar diagnostic (Blood #50 ea 04/19/23 08/28/23 Unknown Rx Glucose Test strips) blood-glucose meter (Blood Glucose #1 ea 04/19/23 08/28/23 Unknown Rx Monitoring kit) lancets 28 gauge (Acti-Ovi #100 ea 04/19/23 08/28/23 Unknown Rx Lancets) lansoprazole 15 mg capsule,delayed 15 mg PO DAILY 05/20/23 09/11/23 09/10/23 08:00 History release levothyroxine 125 mcg tablet See Rx Instructions .Route 07/10/23 09/11/23 09/10/23 08:00 Rx .COMPLEX #30 tabs cyclobenzaprine 10 mg tablet 10 mg PO TID PRN muscle spasm #60 07/17/23 09/10/23 08/14/23 Rx tabs deferasirox 500 mg dispersible 500 mg PO DAILY 08/06/23 09/11/23 09/09/23 History tablet pregabalin 100 mg capsule 100 mg PO BID #60 caps 08/19/23 09/11/23 09/10/23 08:00 Rx semaglutide 0.25 mg or 0.5 mg (2 0.25 mg SUBCUT 6XD 09/11/23 09/11/23 09/03/23 History mg/3 mL) subcutaneous pen injector (Ozempic) Allergies Allergy/AdvReac Type Severity Reaction Status Date / Time codeine Allergy ALGY-Rash Verified 09/11/23 10:39 diphenhydramine Allergy ALGY-Anaphy Verified 09/11/23 10:39 [From Benadryl] laxis hydrocodone Allergy ALGY-Rash Verified 09/11/23 10:39 latex Allergy ALGY-Bliste Verified 09/11/23 10:39 r liraglutide [From Victoza] Allergy ADR-Abdominal Verified 09/11/23 10:39 Pain Sulfa (Sulfonamide Allergy ADR-Nausea Verified 09/11/23 10:39 Antibiotics) Current Medications Generic Name Dose Route Start Last Admin Trade Name Freq PRN Reason Stop Dose Admin Sodium Chloride 1,000 mls @ 30 mls/hr 09/11/23 10:30 09/11/23 11:00 Sodium Chloride 0.9% IV 09/12/23 10:29 30 mls/hr .Q24H DENITA Administration PFSH Anesthesia Surgical History History of neck surgery History of back surgery 2019 fusion c5/6 History of sinus surgery ~2018 [facility] Chatterjee History of bilateral breast reduction surgery age 14 History of hysterectomy partial; one ovary remaining ~2009 Dr. Rain Hx of cholecystectomy ~2012 OPHELIA Otto Family History Father Cancer nose removal Diabetes Hyperlipidemia Mother Cancer estrogen driven breast cancer Clotting disorder clotting disorder unknown Diabetes Hyperlipidemia Hypertension Stroke Grandmother Cancer leukemia(maternal) Dementia Diabetes Grandfather Cancer lung cancer(maternal) Diabetes maternal Lung disease maternal Grandfather Diabetes maternal Grandmother Diabetes paternal Brother Diabetes Family/Other Psychiatric illness maternal uncle Other Anesthesia complication Denies family history of CAD (coronary artery disease) Chronic kidney disease (CKD) Suicide Bleeding disorder Family history of premature coronary artery disease Social History Smoking and tobacco/nicotine status: never used tobacco/nicotine Second hand smoke exposure: No Alcohol intake: never Substance/Drug Use: never Data Anesthesia Cardiac Studies: No Data to Display
--- NOTE | 2023-09-11 11:45 | W.PM.OPSUD ---
Surgery/Procedure H&P Update DATE OF PROCEDURE: September 11, 2023 DATE H&P PERFORMED: 08/28/23 H&P UPDATE INFORMATION: I have reviewed H&P completed within last 30 days, I have examined patient prior to procedure and No changes to prior documentation CHANGES TO PREVIOUS DOCUMENTATION: No changes PREOP DIAGNOSIS: Chronic right maxillary sinusitis/deviated nasal septum/turbinate hypertrop PRIMARY INDICATION FOR PROCEDURE: Chronic right maxillary sinusitis/deviated nasal septum/turbinate hypertrophy PLANNED PROCEDURE: Operation Date: 09/11/23 12:00 Proposed Procedures p Endoscopic Right Antrostomy [id number](Right) - Kingston Atwood MD s Maxillary Sinusectomy(Not Applicable) - Kingston Atwood MD s Septoplasty(Not Applicable) - Kingston Atwood MD s Turbinate Reduction(Not Applicable) - Kingston Atwood MD
[2023-09-11] MEDS: oxymetazoline 0.05% Nasal Spray 15 mL 1 SPRAY NOSTRIL-B (12:10)
[2023-09-11] MEDS: lidocaine-epi 2% 1.7mL Cartridge (OR Only) 1.69999999999999996 ML XX ×2 (12:20)
[2023-09-11] MEDS: neomycin-poly-bacitracin oint 28 gm 1 APPLIC TOPICAL (13:08)
--- NOTE | 2023-09-11 13:14 | PM.OP ---
Operative Report Date of procedure: September 11, 2023 Pre-op diagnosis: Chronic right maxillary sinusitis. Deviated nasal septum. Inferior turbinate hypertrophy. Post-op diagnosis: Same Post-op findings: Right maxillary sinus with mucous retention cyst and significant amount of inspissated mucus. Deviated septum convex to the left and the anterior half. Right inferior turbinate 3-4+. Left inferior turbinate 2-3+. Procedure done: Endoscopic right antrostomy with maxillary sinusectomy. Septoplasty. Submucous resection with partial inferior turbinectomy bilaterally. Implants: 2 septal splints and 2 Telfa packs with Neosporin. Specimens removed/disposition: Contents of right maxillary sinus and portions of bilateral inferior turbinates. Pathology: Contents of right maxillary sinus and portions of bilateral inferior turbinates Surgeon: Kingston Atwood MD Anesthesia: General and Local Estimated blood loss: 20 mL Complications: No complications encountered Findings: Patient noted on prior CT scan to have a large 2 cm cyst in the right maxillary sinus. Patient has a deviated nasal septum anteriorly to the left side. Compensatory turbinate hypertrophy of right inferior turbinate to 3+ and 2+ on the left side. Brief History: 38-year-old female patient was then bothered by right facial pain and pressure nasal dyspnea and found on exam to have deviated nasal septum with compensatory turbinate hypertrophy right side greater than left. Patient on CT scan found to have a large mucous retention cyst. Being brought to the operating room at this time to undergo endoscopic right antrostomy with maxillary sinusectomy, septoplasty and inferior turbinate reduction with submucous resection. The procedure its risks and complications were explained in detail to the patient in the office setting. These risks included bleeding, infection, numbness, scarring, swelling, bruising, septal hematoma or abscess or perforation, change in sense of smell, nasal dryness, recurrent sinusitis, potential injury to orbit and orbital contents including loss of vision or blurred vision, need for additional treatment, and more serious risks associated with anesthesia including heart attack or stroke or not surviving the surgery. With these things understood informed consent was granted and witnessed. Procedure: Description of procedure: The patient was placed on the operating table in the supine position. Adequate general endotracheal tube anesthesia was obtained. Antithrombotic mechanical device placed to both legs. Patient given IV Ancef for prophylaxis. Patient was repositioned into a semirecumbent position. Her nose was packed with 6 cottonoids 3 on each side all soaked in 12-hour Afrin. Nasal hairs were trimmed with scissors. Cottonoids were removed and the septum and inferior turbinates and right middle meatus area were all infiltrated with local. A total of 10.2 mL of 2% Xylocaine with 1-100,000 epinephrine was utilized. The Afrin packs were reapplied to the nose and the patient was prepped and draped in usual fashion. A timeout was then accomplished identifying the patient date of plan procedure allergies fire risk and medications given. With all in agreement the procedure continued. The Afrin packs were once again removed from the nose. Inspection showed that the septum was displaced convexly to the left side anteriorly and the distal aspect was protruding more to the right side of midline out of the columella. Inferior turbinate on the right side was 3+ left side 2-3+. The inferior turbinates were outfractured with a [place] elevator. It was elected to create a right hemitransfixion incision which was done with a 15 blade carrying it down to the septal cartilage. Then a mucoperichondrial periosteal flap was raised in all directions on the right side. A small tear due to adhesions occurred in the midportion and that was to later serve as a drain hole to prevent hematoma formation. The distal aspect of the quadrangular cartilage was then trimmed removing approximately 1.5 mm of cartilage over its entire length anteriorly. The cartilage was disarticulated from the maxillary crest inferiorly with a half round knife. Scoring was done with a 15 blade in all directions and the concave portion on the right side. This allowed the septum to spring back into a straight midline position. Attention was then turned to the right maxillary sinus. Under direct and endoscopic visualization with a 25 degree angle scope the uncinate process was identified incised and removed. Then side biting/up-biting through-cutting forceps were used to enter the right maxillary sinus to than the natural ostia and the infundibular area. This was then opened and enlarged with backbiting through-cutting forceps and up-biting forceps to about 1 cm in diameter. The scope was then inserted into the right maxillary sinus and the cyst identified and removed along with its contents. There was a significant amount of inspissated mucus as well as the lining of the sinus and the cyst with yellow mucoid material within it. After that was accomplished the sinus was suctioned clean. There was no further evidence of any pathology. Attention was turned back into the nose. The inferior turbinates were cauterized medially and laterally along the entire length and then scissors were used to cut through the bone of the turbinate creating a submucous resection and removing the distal portion over its entire length. More was removed on the right side than the left. This created 2+ turbinates bilaterally. Then a [place] elevator was passed through both sides of the nose to the nasopharynx without obstruction. The sinus was suctioned clean once again with a curved suction tip. The right hemitransfixion incision was closed loosely with interrupted 4-0 chromic suture. 2 septal splints were coated with Neosporin and 1 applied each side of the septum making sure that it was not entrapping the middle turbinate. These were medial to the middle turbinates. These were sutured in a through and through fashion with 3-0 Prolene. Then 2 Telfa packs were cut to size coated with Neosporin and 1 was applied each side of the septum extending anterior to posteriorly. With this accomplished the mouth was suctioned clean irrigated with saline and suctioned again. There was no sign of any active bleeding posteriorly. The face was cleansed. A drip pad was applied under the patient's nose and taped to the cheeks. Patient was then returned to anesthesia for wake-up and extubation. She had a estimated blood loss of 20 mL and tolerated the procedure well and was taken to the recovery room where she arrived in stable condition.
[2023-09-11] MEDS: fentaNYL 50 mcg/mL INJ 2mL 100 MCG (13:45)
--- NOTE | 2023-09-11 15:20 | ANE.PACU2 ---
Inpatient post-anesthesia follow up: Airway intact: Yes Vital signs: Temperature 98.4 F Pulse Rate 81 Respiratory Rate 17 Blood Pressure 134/93 Pulse Oximetry 94 Oxygen Delivery Me thod Room Air Oxygen Flow Rate 6 Fraction of Inspir ed Oxygen Hydration adequate: Yes Nausea and vomiting: No Pain level: 3 Mental status: Baseline
== END 2023-09-11 14:58 | disposition home or self-care (01) ==
PROVIDERS: PCP Family Medicine; Visit Provider Otolaryngology
PROC: (CPT 30140; principal; 2023-09-11 12:00)
PROC: (CPT 31225; 2023-09-11 12:00)
PROC: (CPT 30520; 2023-09-11 12:00)
PROC: (CPT 30140; 2023-09-11 12:00)
DX: J32.0 Chronic maxillary sinusitis (principal); J34.2 Deviated nasal septum; J34.3 Hypertrophy of nasal turbinates; K21.9 Gastro-esophageal reflux disease without esophagitis; E66.01 Morbid (severe) obesity due to excess calories; Z68.41 Body mass index [BMI] 40.0-44.9, adult; J34.89 Other specified disorders of nose and nasal sinuses
CPT/HCPCS: 30140; 30520; 31267; 36416; 82962; 88305; 88311; J0131; J1100; J2250; J2371; J2405; J2704; J3010; J3490; J7030

== ENCOUNTER → 2023-10-15 10:22 | Outpatient (BNVA) | payer MEDICAID, SELFPAY | PROVIDERS: PCP Family Medicine; Visit Provider Nurse Practitioner Family | DX: F41.9 Anxiety disorder, unspecified (principal); E78.5 Hyperlipidemia, unspecified; E11.65 Type 2 diabetes mellitus with hyperglycemia; E03.9 Hypothyroidism, unspecified; R79.89 Other specified abnormal findings of blood chemistry | CPT/HCPCS: 80053; 80061; 83036; 84403; 84443; 85025 ==

== ENCOUNTER → 2023-11-07 09:05 | Outpatient (BNVA) | payer MEDICAID, SELFPAY | PROVIDERS: PCP Nurse Practitioner Family; Visit Provider Nurse Practitioner Family | DX: S62.102A Fracture of unspecified carpal bone, left wrist, initial encounter for closed fracture (principal); X58.XXXA Exposure to other specified factors, initial encounter | CPT/HCPCS: 73110 ==

== ENCOUNTER 2023-11-15 14:11 | Outpatient (CLI) | payer MEDICAID, SELFPAY ==
--- NOTE | 2023-11-15 14:30 | MRR_ITS ---
PROCEDURE INFORMATION: Exam: MR Left Upper Extremity Joint Without Contrast; Wrist Exam date and time: 11/15/2023 2:24 PM Age: 38 years old Clinical indication: Patient HX: Patient states that she closed a dumpster lid on her left hand/wrist 1 month ago/pain is all over the wrist area; Additional info: M25.532 - pain in left wrist TECHNIQUE: Imaging protocol: Magnetic resonance imaging of the left upper extremity without contrast. Exam focused on the wrist. COMPARISON: CR XR wrist LT min 3V* [id number] 11/07/2023 9:08 AM FINDINGS: Bones/joints: Unremarkable. No bone abnormalities. Articular cartilage is normal. No joint effusion. Scapholunate ligament: Unremarkable. No tear. Lunotriquetral ligament: Unremarkable. No tear. Triangular fibrocartilage complex: Unremarkable. No tear. Flexor compartment tendons: Unremarkable. No tear. Extensor compartment tendons: No extensor tendon tear. There is mild tenosynovitis of the 2nd and 3rd extensor tendons in the wrist at the level of the distal radioulnar joint continuing to the level of the metacarpal bases. Soft tissues: There is mild subcutaneous edema dorsal wrist overlying the capitate. MR/MR wrist LT wo con* [id number] IMPRESSION: 1. No acute bony abnormality. No fracture or dislocation. Ligaments are intact. 2. There is mild tenosynovitis of the 2nd and 3rd extensor tendons in the wrist at the level of the distal radioulnar joint continuing to the level of the metacarpal bases. 3. There is mild subcutaneous edema dorsal wrist overlying the capitate.
== END 2023-11-15 14:12 | disposition home or self-care (01) ==
LOC: RAD 14:11
PROVIDERS: PCP Nurse Practitioner Family; Visit Provider Nurse Practitioner Family
DX: M65.88 Other synovitis and tenosynovitis, other site (principal); M25.532 Pain in left wrist
CPT/HCPCS: 73221

== ENCOUNTER → 2024-01-17 13:23 | Outpatient (BNVA) | payer MEDICAID, SELFPAY | PROVIDERS: PCP Nurse Practitioner Family; Visit Provider Nurse Practitioner Family | DX: E11.65 Type 2 diabetes mellitus with hyperglycemia (principal); E03.9 Hypothyroidism, unspecified; E55.9 Vitamin D deficiency, unspecified; R79.89 Other specified abnormal findings of blood chemistry; E78.5 Hyperlipidemia, unspecified | CPT/HCPCS: 80053; 80061; 82306; 83036; 84403; 84439; 84443; 85025 ==

== ENCOUNTER → 2024-02-26 11:21 | Outpatient (BNVA) | payer MEDICAID, SELFPAY | PROVIDERS: PCP Nurse Practitioner Family; Visit Provider Nurse Practitioner Family | DX: E03.9 Hypothyroidism, unspecified (principal) | CPT/HCPCS: 84439; 84443 ==

== ENCOUNTER → 2024-03-10 14:50 | Outpatient (BNVA) | payer MEDICAID, SELFPAY | PROVIDERS: PCP Nurse Practitioner Family; Visit Provider Orthopaedic Surgery | DX: M54.2 Cervicalgia (principal) | CPT/HCPCS: 72040 ==

== ENCOUNTER 2024-04-20 07:03 | Outpatient (CLI) | payer MEDICAID, SELFPAY ==
--- NOTE | 2024-04-20 07:15 | MR_ITS ---
WS: [id number] MRI CERVICAL SPINE NONCONTRAST HISTORY: neck pain COMPARISON: 01/25/2023 Technique: Multiplanar, multisequence noncontrast imaging of the cervical spine. Mild curvature to the LEFT cervical spine. Postoperative anterior cervical fusion from C4-C7. Fusion has been extended from C5-6 as noted on the prior MRI. Interbody spacers at C4-5 through C6-7. 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 Signal within the cervical cord is normal. Visualized posterior fossa is unremarkable. Craniocervical junction, C1 and C2 relationship, odontoid process and soft tissues are normal. C2-C3: Segmentation anomaly. No significant stenosis. C3-C4: Osteophytic ridging and annular disc bulge. LEFT foraminal disc osteophyte contacting the exit ing nerve roots. Moderate LEFT and mild RIGHT foraminal stenosis. Small central disc protrusion. C4-C5: Osteophytic ridging moderate RIGHT and mild LEFT foraminal stenosis. C5-C6: Bilateral foraminal osteophytes. Facet joint arthropathy. Mild LEFT foraminal stenosis. C6-C7: Osteophytic ridging and annular disc bulging. Mild central with moderate bilateral foraminal s tenosis. C7-T1: Normal. Paraspinal soft tissue are normal. MR/MR cervical spin wo con* [id number] IMPRESSION: 1. Status post anterior cervical fusion from C4-C7 with interbody spacers. Fus ion has been extended since 01/25/2023. Extent of the foraminal stenosis and ost eophytic ridging has not significantly progressed. 2. No central stenosis or signal abnormality in the cord. 3. C6-7: Mild central with moderate bilateral foraminal stenosis predominately due to osteophyte disease. Stable. 4. C3-4: Moderate LEFT and mild RIGHT foraminal stenosis unchanged. 5. C4-5: Moderate RIGHT and mild LEFT foraminal stenosis due to osteophyte dis ease. 6. C5-6: Mild LEFT foraminal stenosis.
--- NOTE | 2024-04-20 08:00 | MR_ITS ---
WS: [id number] MRI LUMBAR SPINE NONCONTRAST HISTORY: back pain, RIGHT lower extremity numbness. COMPARISON: 01/25/2023 TECHNIQUE: Sagittal and axial multisequence imaging is submitted. L4 anterolisthesis by 2 mm. Mild disc desiccation without loss of height. No fractures or marrow edema. Conus terminates normally at L1. L1-L2: Normal. L2-L3: Mild bilateral facet joint arthropathy. No stenosis. L3-L4: Mild annular disc bulging with effacement of ventral thecal sac. Mild facet arthritis. No sign ificant stenosis. There is very slight retrolisthesis of L3. Minimal encroachment upon the foramina. L4-L5: Mild annular disc bulging with moderate facet arthritis. Tiny RIGHT foraminal disc protrusion. Ligamentum flavum and facet joint arthropathy with mild progression since the prior study. Mild bila teral foraminal stenosis. Very slight encroachment upon the subarticular recesses and traversing L5 n erve roots. L5-S1: Mild asymmetric disc bulging with moderate ligamentum flavum and facet arthritis. Small amount of fluid in the LEFT facet joint. Very shallow LEFT paracentral disc protrusion with slight contact on the LEFT S1 nerve root but no displacement. Similar to the prior study. Mild LEFT foraminal stenos is. Paravertebral soft tissues are normal. MR/MR lumbar spine wo con* [id number] IMPRESSION: 1. No significant progression of disc disease or stenosis since the prior stud y. 2. L4-5: Very tiny RIGHT foraminal disc protrusion. Facet arthropathy with rhonda y mild bilateral foraminal stenosis. 3. L5-S1: Shallow LEFT paracentral disc protrusion with slight contact on the LEFT S1 nerve root. Mild LEFT foraminal stenosis. No change. 4. Facet joint arthropathy throughout the lumbar spine. No high-grade stenosis .
== END 2024-04-20 07:04 | disposition home or self-care (01) ==
LOC: RAD 07:03
PROVIDERS: PCP Nurse Practitioner Family; Visit Provider Orthopaedic Surgery
DX: M47.896 Other spondylosis, lumbar region (principal); M43.22 Fusion of spine, cervical region; M47.892 Other spondylosis, cervical region; M25.78 Osteophyte, vertebrae
CPT/HCPCS: 72141; 72148

== ENCOUNTER → 2024-04-21 14:35 | Outpatient (BNVA) | payer MEDICAID, SELFPAY | PROVIDERS: PCP Nurse Practitioner Family; Visit Provider Orthopaedic Surgery | DX: M48.062 Spinal stenosis, lumbar region with neurogenic claudication (principal); M51.16 Intervertebral disc disorders with radiculopathy, lumbar region; E11.9 Type 2 diabetes mellitus without complications | CPT/HCPCS: 36415; 80053; 81001; 83036; 85025 ==

== ENCOUNTER → 2024-04-29 09:16 | Outpatient (BNVA) | payer MEDICAID, SELFPAY | PROVIDERS: PCP Nurse Practitioner Family; Visit Provider Family Medicine | DX: Z01.818 Encounter for other preprocedural examination (principal) | CPT/HCPCS: 93005 ==

== ENCOUNTER 2024-05-19 06:00 | Outpatient (RCR) | payer MEDICAID, SELFPAY | END 2024-06-13 23:59 | disposition home or self-care (01) | LOC: TPT 06:00 | PROVIDERS: Visit Provider Orthopaedic Surgery | DX: M54.2 Cervicalgia (principal); G89.29 Other chronic pain | CPT/HCPCS: 97110; 97162 ==

== ENCOUNTER 2024-05-20 11:12 | Inpatient (IN) | payer MEDICAID, SELFPAY ==
--- NOTE | 2024-05-19 21:01 | ANES.PREANE2 ---
Pre-Anesthetic Assessment Height/Weight: Height 1.65 m Operation Date: 05/20/24 07:00 Proposed Procedures p Spinal Fusion PSF(Not Applicable) - Deric Camp DO s Posterior Lumbar Interbody Fusion PLIF(Not Applicable) - Deric Camp DO Familial anesthetic complications: None Was Beta Bryce taken within 24 hours: N/A Was Clonidine taken within 24 hours: N/A Last intake: > 8 hrs Social No alcohol and No tobacco Exam alert, oriented x 3, clear to auscultation bilaterally and regular rate & rhythm Airway Mallampati: Class III Dentition: full Comments: Comments: hx vocal cord paralysis from back surgery - back to normal now per patient CV/HEM POTS Hepatic hx hemochromotosis GI Gastroesophageal Reflux Disease Metabolic Diabetes Mellitus, Morbid Obesity and Thyroid Disease Anesthetic Plan ASA status: 3 Anesthesia: General Risk of > 500 ml blood loss (7ml/kg in children): No Other Pertinent Information [place] Medications/Allergies Home Medications Medication Instructions Recorded Confirmed Last Taken Type blood sugar diagnostic (Blood #50 ea 04/19/23 05/20/24 Unknown Rx Glucose Test strips) blood-glucose meter (Blood Glucose #1 ea 04/19/23 04/17/24 Unknown Rx Monitoring kit) lancets 28 gauge (Acti-Ovi #100 ea 04/19/23 04/17/24 Unknown Rx Lancets) deferasirox 500 mg dispersible 500 mg PO DAILY 08/06/23 05/19/24 09/09/23 History tablet epinephrine 0.3 mg/0.3 mL 0.3 mg (0.3 mL) IM Q15M PRN 01/17/24 05/19/24 Unknown Rx injection, auto-injector (EpiPen anaphylaxis #2 ea 2-Owen) pantoprazole 40 mg tablet,delayed 40 mg PO DAILY #90 tabs 01/17/24 05/20/24 05/20/24 Rx release (Protonix) metoprolol tartrate 25 mg tablet 25 mg PO BID #60 tabs 02/26/24 05/20/24 05/20/24 Rx pregabalin 150 mg capsule 150 mg PO BID #60 caps 02/26/24 05/20/24 05/20/24 Rx zolmitriptan 5 mg tablet See Rx Instructions PO .COMPLEX 02/26/24 05/20/24 Unknown Rx #10 tabs cyclobenzaprine 10 mg tablet See Rx Instructions .Route 03/09/24 05/19/24 Unknown Rx .COMPLEX #60 tabs levothyroxine 112 mcg tablet See Rx Instructions .Route 04/13/24 05/20/24 05/20/24 Rx .COMPLEX #30 tabs celecoxib 100 mg capsule (Celebrex) 100 mg PO BID #60 caps 04/17/24 05/20/24 05/20/24 Rx venlafaxine 150 mg 150 mg PO QAM #30 caps 04/17/24 05/20/24 05/20/24 Rx capsule,extended release 24 hr alprazolam 0.5 mg tablet 0.5 mg PO DAILY PRN aniety 04/29/24 05/19/24 Unknown History semaglutide 1 mg/dose (4 mg/3 mL) See Rx Instructions .Route 05/04/24 05/19/24 05/05/24 Rx subcutaneous pen injector (Ozempic) .COMPLEX #3 mL Allergies Allergy/AdvReac Type Severity Reaction Status Date / Time codeine Allergy ALGY-Rash Verified 05/19/24 09:31 diphenhydramine Allergy ALGY-Anaphy Verified 05/19/24 09:31 [From Benadryl] laxis hydrocodone Allergy ALGY-Rash Verified 05/19/24 09:31 latex Allergy ALGY-Bliste Verified 05/19/24 09:31 r liraglutide [From Victoza] Allergy ADR-Abdominal Verified 05/19/24 09:31 Pain sertraline [From Zoloft] Allergy worsening Verified 05/19/24 09:31 depression Sulfa (Sulfonamide Allergy ADR-Nausea Verified 05/19/24 09:31 Antibiotics) tramadol Allergy ADR-Vomitin Verified 05/20/24 06:05 g PFSH Anesthesia Medical History GERD (gastroesophageal reflux disease) Surgical History History of neck surgery History of back surgery 2019 fusion c5/6 History of sinus surgery ~2018 OPHELIA Chatterjee History of bilateral breast reduction surgery age 14 History of hysterectomy partial; one ovary remaining ~2009 Dr. Rain Hx of cholecystectomy ~2012 OPHELIA Otto Family History Father Cancer nose removal Diabetes Hyperlipidemia Mother Cancer estrogen driven breast cancer Clotting disorder clotting disorder unknown Diabetes Hyperlipidemia Hypertension Stroke Grandmother Cancer leukemia(maternal) Dementia Diabetes Grandfather Cancer lung cancer(maternal) Diabetes maternal Lung disease maternal Grandfather Diabetes maternal Grandmother Diabetes paternal Brother Diabetes Family/Other Psychiatric illness maternal uncle Other Anesthesia complication Denies family history of CAD (coronary artery disease) Chronic kidney disease (CKD) Suicide Bleeding disorder Family history of premature coronary artery disease Social History Smoking and tobacco/nicotine status: never used tobacco/nicotine Second hand smoke exposure: No Alcohol intake: never Substance/Drug Use: never Data Anesthesia Cardiac Studies: No Data to Display
[2024-05-20] VITALS (26 sets, daily range): BP systolic 82–150; BP diastolic 45–94; PULSE 78–118; RESP 9–20; TEMP 36–36.8; O2SAT 91–98; BMI 35.7; BMI 46.5
[2024-05-20] MEDS: sodium chloride 0.9% 1,000 ML 30 ML IV (06:18)
[2024-05-20] MEDS: scopolamine 1.5 Patch 1 PATCH TRANSDERMA (06:22)
--- NOTE | 2024-05-20 06:33 | W.PM.OPSUD ---
Surgery/Procedure H&P Update DATE OF PROCEDURE: May 20, 2024 DATE H&P PERFORMED: 04/29/24 H&P UPDATE INFORMATION: I have reviewed H&P completed within last 30 days, I have examined patient prior to procedure and No changes to prior documentation PREOP DIAGNOSIS: Lumbar stenosis with neurogenic claudication PLANNED PROCEDURE: Operation Date: 05/20/24 07:00 Proposed Procedures p Spinal Fusion PSF(Not Applicable) - Deric Camp DO s Posterior Lumbar Interbody Fusion PLIF(Not Applicable) - Deric Camp DO
[2024-05-20] MEDS: ceFAZolin 2,000 mg SDV 2000 MG IVP ×3 (07:08→23:37)
[2024-05-20] MEDS: VANCOMYCIN ADD-Vantage 1,000 MG in 0.9% NaCl ADD-Vantage 250 ML 250 MG IRRIGATION (07:45)
[2024-05-20] MEDS: lidocaine-epi 1% PF 1:200,000 30 mL SDV INJECTION (07:45)
[2024-05-20] MEDS: heparin, porcine 1,000 unit/mL INJ 10 mL 10000 UNIT IRRIGATION (07:45)
--- NOTE | 2024-05-20 10:09 | P.OP_ITS ---
Operative Report Date of procedure: May 20, 2024 Pre-op diagnosis: 1. Lumbar stenosis with neurogenic claudication 2. L4-5 spondylolisthesis Post-op diagnosis: same Procedure done: 1. L4/5 Interbody fusion with posterolateral fusion 2. Posterior instrumentation L4/5 3. Cage at L4/5 4. L4-5 laminectomy and facetectomies 5. use of autograft from same incision 6. allograft 7. Bone marrow aspirate from right iliac crest 8. Use of computer navigation stereotactic for the spine Surgeon: Deric Camp DO Estimated blood loss (mL): 100 Procedure: 1. L4/5 Interbody fusion with posterolateral fusion 2. Posterior instrumentation L4/5 3. Cage at L4/5 4. L4-5 laminectomy and facetectomies 5. use of autograft from same incision 6. allograft 7. Bone marrow aspirate from right iliac crest 8. Use of computer navigation stereotactic for the spine Patient is brought to the operative suite. After undergoing anesthesia, the patient had neuro monitoring attached. Patient was then placed in the prone position on the Kt table. All areas of impingement were well-padded. P atient was then prepped and draped in the normal sterile fashion. Skin incision was then made over the L4-5 space. Subperiosteal dissection was made out to the transverse processes of L4 and L5. The [employer] bone marrow aspirate kit was used to aspirate bone marrow aspirate from right iliac crest. This was done by using the sharp probe to open up the bone. Aspiration was performed and then the blunt probe was then used to dissect down to through the bone tunnel. An aspirating well drawn back a millimeter approximately 20 cc of bone marrow aspirate was used. Admixed with the allograft and autograft bone that will be used. Next and is brought to placing the fiducial. 2 pins were placed into the iliac wing on the right. These pins were removed at the end the case. The fiducial was then attached to these pins. The C-arm was brought in and spun around the patient the information from the serum was then loaded the computer in order to perform the pedicle screw placement using computer navigation. The technique for placing the pedicle screws was to use a drill followed by the gearshift probe linked to computer navigation. Followed by the ball probe to feel the superior inferior medial lateral saldivar of the pedicles. Then placement of the screws using the computer navigation. Was done at each pedicle. Screws were placed at L4 bilaterally and L5 bilaterally. Next attention was brought to performing the laminectomy ofL5. This was done using the high-speed bur Kerrisons and curettes. Once the lamina was removed and then attention was brought to performing a partial facetectomy on the contralateral side. This was done again using the high-speed bur curettes and Kerrisons. The ligamentum flavum was taken down bilaterally from L4 to L5. Attention was then brought to the facet on the ipsilateral side. The facet was taken down. The L5 nerve was decompressed as it passed around the L5 pedicle. The laminectomy was done for purposes of decompressing the nerve as well as placement of the cage. The L4 nerve was identified as it traversed through the L4/5 foramen. The thecal sac was identified and retracted. The L4/5 disc base was identified. Using a knife the disc base was opened. And then sequential nancy were placed. The first shaver was a 6 and the last shaver was a 10. Using a pituitary and down going curette the endplates were scraped and disc material was removed from the space. Once adequate decompression of the disc base was felt to be had. Osteoamp sponge was packed into the anterior aspect of the disc base. Then a size 11 cage from [place] was placed after packing osteoamp into the cage. While placing the cage the thecal sac and L5 nerve was protected. C arm was used to ensure that the cages placed in the appropriate position. Attention was then brought to attaching the rods to the screws placed in the L4 bilaterally and L5 bilaterally. Caps were torqued into position. Locking the construct in place. Wound was copiously irrigated and then attention was brought to decorticating the facets and transverse processes laterally. Bone that was taken down from the lamina was used along with osteoamp fibers and sponges were packed into the lateral gutters along the facet joints. This was done bilaterally. Wound was then closed in a layered fashion starting with the thoracolumbar fascia. 0-vicryl was used the sub cutaneous tissue was closed with 2-0 vicryl and skin with 4-0 monocryl. Glue was then used to seal the skin and a steril dressing was applied. Patient was then placed in the supine position. The endotracheal tube was removed and patient was transferred to the PACU in stable condition.
[2024-05-20] MEDS: ketorolac 30 mg/mL INJ 15 MG IVP (10:49)
[2024-05-20] MEDS: fentaNYL 50 mcg/mL INJ 2mL IVP (11:03)
--- NOTE | 2024-05-20 11:20 | ANE.PACU2 ---
Inpatient post-anesthesia follow up: Airway intact: Yes Vital signs: Temperature 98.0 F Pulse Rate 100 Respiratory Rate 18 Blood Pressure 135/80 Pulse Oximetry 93 Oxygen Delivery Me thod Nasal Cannula Oxygen Flow Rate 2 Fraction of Inspir ed Oxygen Hydration adequate: Yes Nausea and vomiting: No Pain level: 1 Mental status: Baseline
--- NOTE | 2024-05-20 11:35 | PC.NURSE ---
1130 - this nurse assisted pt to room 263 - v/s per this nurse - 02 at 3LNC per this nurse - this nurse to nurses station to retrieve BILLIE Zimmer - Goran to room to accept pt - verified hemovac, ly booth ppp - pt alert and orientated with family at side - left sided fa IV patent via IVF - Temp at 98.3 - BP 103/64 - Pulse 104 RR 20 02 at 95% on 3L HOSEA Zimmer accepted pt to floor
[2024-05-20] MEDS: cetylpyridinium Lozenge 1 EACH MUCOUS MEM (11:50)
[2024-05-20] MEDS: lactated ringers 1,000 ML 90 ML IV ×2 (11:51→23:23)
[2024-05-20] MEDS: oxyCODONE-APAP 5-325 mg Tablet PO ×3 (13:12→20:48)
--- NOTE | 2024-05-20 13:29 | XR_ITS ---
WS: [id number] XR lumbar spine 2-3V* [id number] REASON FOR EXAM: or pic, spinal fusion FINDINGS: Posterior decompression with placement of bilateral pedicle screws and interbody fusion device L4-L5. Surgical appliances are intact and in proper position and alignment. XR/XR lumbar spine 2-3V* [id number] IMPRESSION: Intraoperative examination as above without abnormality.
[2024-05-20] MEDS: acetaminophen 325 mg Tablet 650 MG PO (16:00)
[2024-05-20] MEDS: docusate sodium 100 mg Capsule PO (17:16)
[2024-05-20] MEDS: metoprolol tartrate 25 mg Tablet PO (17:16)
[2024-05-20] MEDS: pregabalin 150 mg Capsule PO (17:16)
[2024-05-20] MEDS: CELEcoxib 100 mg Capsule PO (18:13)
[2024-05-20] MEDS: ALPRAZolam 0.5 mg Tablet PO (23:37)
[2024-05-21 00:23] VITALS: BP 107/64; PULSE 98; RESP 16; TEMP 36.6; O2SAT 93
[2024-05-21 04:36] VITALS: RESP 16
[2024-05-21] MEDS: oxyCODONE-APAP 5-325 mg Tablet PO ×2 (04:36→08:28)
[2024-05-21 04:38] VITALS: BP 106/66; PULSE 95; RESP 18; TEMP 36.3; O2SAT 93
--- NOTE | 2024-05-21 04:59 | PC.NURSE ---
patient second day post op, modi discontinued per protocol, catheter intact, 10ml of fluid from bulb. patient tolerated well.
[2024-05-21] MEDS: ceFAZolin 2,000 mg SDV 2000 MG IVP (05:27)
[2024-05-21] MEDS: venlafaxine ER (24HR) 150 mg Capsule PO (05:27)
[2024-05-21 07:17] VITALS: BP 134/86; PULSE 84; RESP 15; TEMP 36.6; O2SAT 95
--- NOTE | 2024-05-21 08:17 | P.DS_ITS ---
Discharge Providers Date of Admission: 05/20/24 11:12 Date of Discharge: May 21, 2024 Attending Provider at Admission: Deric Camp DO Attending Provider at Discharge: Deric Camp DO Reason for Visit Reason for Visit: M48.062 Physical Exam Narrative: Patient is doing well sitting up in chair no complaints. Pain is controlled drain output minimal at this point. Urinary Catheter Management: Michel: Cath Placed During This Visit: yes Reason for Continuing Indwelling Catheter: Perioperative Use in Selected Surgeries Urinary Catheter Date of Insertion: 05/20/24 Discharge Data Studies Completed and Pending Completed Studies During Hospitalization Category Date Time Status XR lumbar spine 2-3V* [id number] Routine Exams 05/20/24 13:29 Completed Pending at discharge Category Date Time Status C-arm Fluoroscopy [id number] Routine Exams 05/20/24 06:00 Taken Radiology Impressions Lumbar Spine X-Ray 05/20/24 13:29 IMPRESSION: Intraoperative examination as above without abnormality. Vitals Last Vital Signs Temp 97.8 F 05/21/24 07:17 Pulse 84 05/21/24 07:17 Resp 15 05/21/24 07:17 BP 134/86 05/21/24 07:17 Pulse Ox 95 05/21/24 07:17 O2 Del Method Room Air 05/21/24 07:17 O2 Flow Rate 1 05/20/24 15:49 Discharge Plan Discharge Patient Disposition: Home Condition: Stable Prescriptions: New hydrocodone-acetaminophen 5-325 mg tablet 1 - 2 tab PO .Q4-6H Qty: 40 0RF Continued (DME) blood-glucose meter [Blood Glucose Monitoring] Kit See Rx Instructions .ROUTE .MEDSUPPLY Qty: 1 0RF Rx Instructions: check blood sugar daily and as directed (DME) Blood Glucose Test Strip See Rx Instructions .ROUTE .MEDSUPPLY Qty: 50 12RF Rx Instructions: check blood sugar daily and As directed (DME) lancets [Acti-Ovi Lancets] 28 gauge misc See Rx Instructions .Route Qty: 100 12RF Rx Instructions: check blood sugars daily and as directed deferasirox 500 mg tablet, dispersible 500 mg PO DAILY pregabalin 150 mg capsule 150 mg PO BID Qty: 60 2RF metoprolol tartrate 25 mg tablet 25 mg PO BID Qty: 60 2RF zolmitriptan 5 mg tablet See Rx Instructions PO .COMPLEX Qty: 10 5RF Rx Instructions: take 1 tab at onset of headache; if no relief, may repeat 1 tab after at least 2 hrs; max = 2 tabs/24 hrs PO cyclobenzaprine 10 mg tablet See Rx Instructions .ROUTE .COMPLEX Qty: 60 2RF Dose Instruction: TAKE ONE TABLET BY MOUTH THREE TIMES DAILY NEEDED FOR MUSCLE SPASMS Rx Instructions: TAKE ONE TABLET BY MOUTH THREE TIMES DAILY NEEDED FOR MUSCLE SPASMS venlafaxine 150 mg capsule,extended release 24hr 150 mg PO QAM Qty: 30 2RF celecoxib [Celebrex] 100 mg capsule 100 mg PO BID Qty: 60 0RF pantoprazole [Protonix] 40 mg tablet,delayed release (DR/EC) 40 mg PO DAILY Qty: 90 1RF epinephrine [EpiPen 2-Owen] 0.3 mg/0.3 mL auto-injector 0.3 mg IM Q15M PRN (Reason: anaphylaxis) Qty: 2 0RF levothyroxine 112 mcg tablet See Rx Instructions .ROUTE .COMPLEX Qty: 30 2RF Dose Instruction: TAKE ONE TABLET BY MOUTH DAILY Rx Instructions: TAKE ONE TABLET BY MOUTH DAILY Ozempic 1 mg/dose (4 mg/3 mL) pen injector See Rx Instructions .ROUTE .COMPLEX Qty: 3 2RF Dose Instruction: INJECT 1mg SUBCUTANEOUSLY WEEKLY Rx Instructions: INJECT 1mg SUBCUTANEOUSLY WEEKLY Discontinued alprazolam 0.5 mg tablet 0.5 mg PO DAILY PRN (Reason: aniety) Discharge Orders: Discharge Order (Routine); Ordered 05/21/24 Ordered By: Deric Camp Discharge Diet: Advance as tolerated Discharge Activity: Limit activity as instructed Patient Instructions: Acute Wound Care (DC), Opioid Safety, Post Anesthesia Care Activity Restrictions/Additional Instructions: Okay to restart alprazolam when you get home Thank you for [facility] for your care! The following is a list of instructions, from your provider, to follow upon your discharge to ensure you have the optimal recovery from your recent injury orsurgery. Follow-up care is a laughlin part of your treatment and safety. Be sure to make and go to all appointments, and call your doctor if you are having problems. If you do not already have a follow-up appointment made, call [] office in the next 1-3 days to make follow up appointment for [] weeks at [phone]. It is also a good idea to know your test results and keep a list of the medicines you take. Medications will be prescribed for you at your provider's discretion. These medications are to be used as instructed; if they are taken more often that prescribed they will not be refilled early and in most cases will not be refilled at all. > When a refill is needed,you should contact mary morse 2-3 business days before your prescription runs out. Medications will NOT be refilled by repairer engine production providers after hours! > Many pain medications contain Tylenol (Acetaminophen). Do not consume more than 4,000 mg of Tylenol per day in total with any combination ofmedications. > Pain medications can cause constipation. Please use an over the counter stool softener as directed, while taking pain medications. Consulty our local pharmacist with questions or recommendations on stool softeners. If constipation persists, contact our office or your primary care provider. > While under our care,you are not to receive pain medications or other controlled substances from any other provider unless our office is notified and approves. Any attempts to do so will result in refusal to prescribe any further pain medications and possible dismissal from our practice. ? Keep dressing on for 7 days will change the dressing when we see you in the clinic in 1 week. ? Showering is permitted, however we ask that you do not take a bath, sit in a whirlpool / Jacuzzi, or go swimming for 1 month. For only the first 2 days after surgery, lt wilt be necessary for you to cover your wound/dressing with plastic and tape to keep it dry. ? Walking is essential for the healing process after surgery. We would like you to slowly advance your walking. This should be done on relatively flat clear ground (inside or out) or can be done on a treadmill. Remember this goal does not have to happen all at once, slowly increase your distance and duration. This can be broken into more more than one walk per day as tolerated. Patients who walk as directed after surgery rarely require Physical Therapy. In the unlikely event this issue arises your provider will direct hospital staff to make the appropriate arrangements. ? No lifting over 5 pounds {a gallon of milk) or bending/twisting until further notice. Each of these activities places an unnecessary amount of stress onto the body and can impede the delicate healing process. > Instead of bending at the waist, keep your back straight and bend at the knees. > Instead of twisting your torso, keep your back straight and turn your entire body with your feet. ? You may sleep in any position which makes you comfortable. Many patients find comfort sleeping in a reclining chair. It is not abnormal to have difficulty sleeping for the first several weeks following your surgery. We recommend trying Benadry! or Tylenol PM as directed to help with your sleeping difficulties. Both medications are over the counter and available withoutprescription. ? NO SMOKING!!! Smoking dramatically increases the probability of developing postoperative wound infections. ? Common complaints after lumbar and/or thoracic spine surgery include, but are not limited to: numbness and/or tingling in the legs, pain around the incision and surrounding tissues, muscle spasms, or stiffness of the middle to low back. Contact our office if these symptoms persist or if an acute change occurs. ? No driving for the first 3-5days, and not while taking narcotics [] until seen at your follow-up appointment and cleared. There are no restrictions for riding on short trips, however if you take a longer trip, arrangements should be made to make regular stops to get out of the vehicle and stretch . ? Swelling is an unfortunate event that will take place with any surgery and is the primary source of your postoperative discomfort. While walking and regular approved activities helps control inflammation, there are additional steps you can take to minimizeswelling. > Place ice over the surgical site and surrounding tissue for twenty minutes, followed by applying a low/medium heat (heating pad) for an additional twenty minutes every 1-2 hours as needed for painrelief. > You may use of over the counter anti-inflammatory medications (Ibuprofen, Motrin, Aleve, Advil, etc) as directed on the package label. These types of medicines wm significantly reduce the amount of discomfort you experience after surgery from swelling. It should be noted that if you have and allergy to any of these medications, or a history of ulcers or kidney disease you should consult you primary care provider prior to starting these medications. Discharge Attestations Time Spent in Discharge Care*: less than 30 min Quality Metrics Clinical Quality Measures [ No reported AMI, CVA or VTE this stay] Coding Level of Care Code Acute Code for Chg Fwd
[2024-05-21 08:28] VITALS: RESP 18
[2024-05-21] MEDS: levothyroxine 112 mcg Tablet PO (08:29)
[2024-05-21] MEDS: CELEcoxib 100 mg Capsule PO (08:29)
[2024-05-21] MEDS: docusate sodium 100 mg Capsule PO (08:29)
[2024-05-21] MEDS: pantoprazole DR 40 mg Tablet PO (08:29)
[2024-05-21] MEDS: metoprolol tartrate 25 mg Tablet PO (08:30)
[2024-05-21] MEDS: pregabalin 150 mg Capsule PO (08:30)
--- NOTE | 2024-05-21 09:59 | PC.CHAP ---
Pastoral Care Encounter/Spiritual Assessment Type of Contact [] Declined retail sales vitamin consultant visit [] Patient/Family/Request visit [] Outpatient visit [] Follow-up visit [] Physician referral [] Code/Alert [x] Routine visit [] Staff referral [] Actively dying [] Patient sleeping [] Family support [] [] Out of room [] Palliative care [] [] Receiving care in room [] Pre-surgical visit [] Trauma [] Long length of stay [] ICU visit [] Other: Relational/Emotional Strength [x] Patient feels connected with others/family/visitors/staff [] Distress [] Loneliness/isolation [] Abandonment Spirituality of Patient [x] Person of Renea [] Attends Lutheran of their Renea [x] Believes in Prayer [] Reads Bible or Advent materials [] There are Spiritual issues to be addressed [employer] Interventions [x] Prayer [x] Active listening [] Non-anxious presence [x] Spiritual/emotional support [] Crisis/trauma care [] Spiritual counseling [] Bereavement support [] Provided bereavement packet [] Provided Bible/devotional materials [] Provided toy/stuffed animal, coloring book to patient or family member [] Provided Communion [] Anointing/[place] [] Salvation [x] Completed spiritual assessment [] Other: Impact on Illness or Injury [] Angry [] Fearful [] Anxious [] Often cries [] Exhaustion [] Unable to work [] Unable to attend hindu [] Unable to walk/stand [] Unable to read [] Unable to drive [] Unable to eat/drink [] Unable to sleep [] Unable to be with family [] Patient intubated [] Other: Summary Time spent with patient 5 min
== END 2024-05-21 09:40 | disposition home or self-care (01) | DRG 402 ==
LOC: MEDSURG 11:18
PROVIDERS: Admitting Provider Orthopaedic Surgery; Visit Provider Orthopaedic Surgery
PROC: 0SG00AJ Fusion of Lumbar Vertebral Joint with Interbody Fusion Device, Posterior Approach, Anterior Column, Open Approach (ICD-10-PCS; principal; 2024-05-20 07:00)
PROC: 0SG00AJ Fusion of Lumbar Vertebral Joint with Interbody Fusion Device, Posterior Approach, Anterior Column, Open Approach (ICD-10-PCS; CPT 22612; 2024-05-20 07:00)
DX: M48.062 Spinal stenosis, lumbar region with neurogenic claudication (principal); Z68.42 Body mass index [BMI] 45.0-49.9, adult; M43.16 Spondylolisthesis, lumbar region; K21.9 Gastro-esophageal reflux disease without esophagitis; E11.9 Type 2 diabetes mellitus without complications; E66.01 Morbid (severe) obesity due to excess calories; E07.9 Disorder of thyroid, unspecified; Z79.890 Hormone replacement therapy; Z79.85 Long-term (current) use of injectable non-insulin antidiabetic drugs
CPT/HCPCS: 72100; 76000; 97116; 97161; C1713; J0131; J0690; J1100; J1171; J1644; J1885; J2250; J2371; J2405; J2704; J2710; J3010; J3370; J3490; J7030; J7050; J7120; P9045

== ENCOUNTER 2024-05-23 11:15 | Emergency (ER) | payer MEDICAID, SELFPAY ==
[2024-05-23] VITALS (10 sets, daily range): BP systolic 142–151; BP diastolic 93–100; PULSE 82–83; RESP 16–17; TEMP 37; O2SAT 92–97; BMI 34.9
--- NOTE | 2024-05-23 11:34 | ED_ITS ---
HPI - General Adult 2 General: Chief complaint: General Medical Stated complaint: post op bleeding/pain in back Time Seen by Provider: 05/23/24 11:27 History of Present Illness: 39-year-old female presents to the emerg ency room with complaints of drainage from her incision on her back. 3 days ago she had a lumbar spine laminectomy with fusion. Today she started having a lot of drainage from her wound. Serosanguineous no fever sweats chills. No vomiting no diarrhea. She still is having quite a bit of back pain postoperatively. Associated symptoms: Deny chest pain, dyspnea or rash Related Data Home Medications Medication Instructions Recorded Confirmed deferasirox 500 mg dispersible 500 mg PO DAILY 08/06/23 05/19/24 tablet Previous Rx's Medication Instructions Recorded blood sugar diagnostic (Blood #50 ea 04/19/23 Glucose Test strips) blood-glucose meter (Blood Glucose #1 ea 04/19/23 Monitoring kit) lancets 28 gauge (Acti-Ovi #100 ea 04/19/23 Lancets) epinephrine 0.3 mg/0.3 mL 0.3 mg (0.3 mL) IM Q15M PRN 01/17/24 injection, auto-injector (EpiPen anaphylaxis #2 ea 2-Owen) pantoprazole 40 mg tablet,delayed 40 mg PO DAILY #90 tabs 01/17/24 release (Protonix) metoprolol tartrate 25 mg tablet 25 mg PO BID #60 tabs 02/26/24 pregabalin 150 mg capsule 150 mg PO BID #60 caps 02/26/24 zolmitriptan 5 mg tablet See Rx Instructions PO .COMPLEX 02/26/24 #10 tabs cyclobenzaprine 10 mg tablet See Rx Instructions .Route 03/09/24 .COMPLEX #60 tabs levothyroxine 112 mcg tablet See Rx Instructions .Route 04/13/24 .COMPLEX #30 tabs venlafaxine 150 mg 150 mg PO QAM #30 caps 04/17/24 capsule,extended release 24 hr semaglutide 1 mg/dose (4 mg/3 mL) See Rx Instructions .Route 05/04/24 subcutaneous pen injector (Ozempic) .COMPLEX #3 mL celecoxib 100 mg capsule (Celebrex) 100 mg PO BID #60 caps 05/21/24 oxycodone-acetaminophen 5 mg-325 1 tab PO Q4H PRN pain 7 days #42 05/21/24 mg tablet tabs prednisone 20 mg tablet 20 mg PO TID #15 tabs 05/23/24 Allergies Allergy/AdvReac Type Severity Reaction Status Date / Time codeine Allergy ALGY-Rash Verified 05/19/24 09:31 diphenhydramine Allergy ALGY-Anaphy Verified 05/19/24 09:31 [From Benadryl] laxis hydrocodone Allergy ALGY-Rash Verified 05/19/24 09:31 latex Allergy ALGY-Bliste Verified 05/19/24 09:31 r liraglutide [From Victoza] Allergy ADR-Abdominal Verified 05/19/24 09:31 Pain sertraline [From Zoloft] Allergy worsening Verified 05/19/24 09:31 depression Sulfa (Sulfonamide Allergy ADR-Nausea Verified 05/19/24 09:31 Antibiotics) tramadol Allergy ADR-Vomitin Verified 05/20/24 06:05 g Review of Systems 2 Const: Denies: fever(s) or chills Card: Denies: chest pain Resp: Denies: dyspnea GI: Denies: abdominal pain : Denies: dysuria, urinary frequency or urinary urgency Musc: Denies: neck pain or back pain Skin/Breast: Denies: rash PFSH ED 2 PFSH: Medical History GERD (gastroesophageal reflux disease) Surgical History History of neck surgery History of back surgery 2019 fusion c5/6 History of sinus surgery ~[address] History of bilateral breast reduction surgery age 14 History of hysterectomy partial; one ovary remaining ~2009 Dr. Rain Hx of cholecystectomy ~2012 [facility] Family History Father Cancer nose removal Diabetes Hyperlipidemia Mother Cancer estrogen driven breast cancer Clotting disorder clotting disorder unknown Diabetes Hyperlipidemia Hypertension Stroke Grandmother Cancer leukemia(maternal) Dementia Diabetes Grandfather Cancer lung cancer(maternal) Diabetes maternal Lung disease maternal Grandfather Diabetes maternal Grandmother Diabetes paternal Brother Diabetes Family/Other Psychiatric illness maternal uncle Other Anesthesia complication Denies family history of CAD (coronary artery disease) Chronic kidney disease (CKD) Suicide Bleeding disorder Family history of premature coronary artery disease Social History Smoking and tobacco/nicotine status: never used tobacco/nicotine Second hand smoke exposure: No Alcohol intake: never Substance/Drug Use: never Physical Exam 2 Const: COMMON NORMALS: no acute distress GENERAL APPEARANCE: cooperative and comfortable ORIENTATION/CONSCIOUSNESS: Yes awake, Yes oriented to person, Yes oriented to place and Yes oriented to time HENMT: COMMON NORMALS: normocephalic, atraumatic and hearing grossly normal bilaterally HEAD & SCALP: normocephalic and atraumatic Resp: COMMON NORMALS: normal respiratory effort, No retractions, No use of accessory muscles and clear to auscultation bilaterally AUSCULTATION: clear to auscultation bilaterally Cardio: COMMON NORMALS: regular rate, regular rhythm and No murmurs present (Cardio) RATE: regular rate RHYTHM: regular rhythm GI: COMMON NORMALS: Soft to palpation and No hepatosplenomegaly present A USCULTATION: Yes normoactive bowel sounds PALPATION: Yes Soft to palpation, No Tenderness to palpation present (GI), No Guarding due to palpation present (GI) and Yes No hepatosplenomegaly present Extremity: COMMON NORMALS: normal to inspection, capillary refill normal, no clubbing, cyanosis or edema, no calf tenderness and no pedal edema Neuro: SENSORIUM/ORIENTATION: Yes oriented to person, Yes oriented to place and Yes oriented to time Skin: COMMON NORMALS: no rashes or lesions noted GENERAL SKIN EXAM: no rashes or lesions noted Course 2 Vital Signs: Vital signs: Vital Signs Temperature 98.6 F 05/23/24 11:24 Pulse Rate 82 05/23/24 11:24 Respiratory Rate 16 05/23/24 12:11 Blood Pressure 151/100 05/23/24 12:30 Pulse Oximetry 92 05/23/24 12:30 Oxygen Delivery Me thod Room Air 05/23/24 11:24 [facility] - General Adult Medical Decision Making Vital signs stable no fever all the drainage is serosanguineous and examination of the wound there is no evidence of inflammation induration of the skin or active purulent drainage. Will discharge the patient home with discussed with Dr. Camp he like see the patient Saturday or Saturday encouraged her to change the dressing 1-2 times a day. Continues to pain medications previously prescribed Medical Records I reviewed the patient's medical records. Lab Data I reviewed the patient's lab results. 05/23/24 11:19 05/23/24 11:19 Laboratory Results WBC 8.12 10^3/uL (3.29-11.43) 05/23/24 11:19 RBC 4.38 10^6/uL (3.85-5.65) 05/23/24 11:19 Hgb 13.00 g/dL (11.27-16.99) 05/23/24 11:19 Hct 39.5 % (36-47) 05/23/24 11:19 MCV 90.2 fl (85-98) 05/23/24 11:19 MCH 29.7 pg (27-33) 05/23/24 11:19 MCHC 32.9 g/dL (30-55) 05/23/24 11:19 RDW 13.3 % (12.1-15.1) 05/23/24 11:19 Plt Count 219 10^3/cmm (157-399) 05/23/24 11:19 MPV 12.3 fL (7.4-10.4) H 05/23/24 11:19 Neut % (Auto) 56.7 % 05/23/24 11:19 Lymph % (Auto) 28.8 % 05/23/24 11:19 Jenkins % (Auto) 7.9 % 05/23/24 11:19 Eos % (Auto) 5.8 % 05/23/24 11:19 Baso % (Auto) 0.2 % 05/23/24 11:19 Neut # (Auto) 4.60 10^3/uL (1.8-7.7) 05/23/24 11:19 Lymph # (Auto) 2.3 10^3/uL (0.8-4.8) 05/23/24 11:19 Jenkins # (Auto) 0.6 10^3/uL (0.2-0.9) 05/23/24 11:19 Eos # (Auto) 0.5 10^3/uL (0.0-0.8) 05/23/24 11:19 Baso # (Auto) 0.0 10^3/uL (0.0-0.1) 05/23/24 11:19 Nucleated RBC % (auto) 0 % 05/23/24 11:19 Nucleated RBCs # 0.0 /100WBC 05/23/24 11:19 Sodium 137 mmol/L (136-145) 05/23/24 11:19 Potassium 4.1 mmol/L (3.5-5.1) 05/23/24 11:19 Chloride 98 mmol/L (98-107) 05/23/24 11:19 Carbon Dioxide 30 mmol/L (22-29) H 05/23/24 11:19 Anion Gap 13.1 (5-19) 05/23/24 11:19 BUN 9 mg/dL (6-20) 05/23/24 11:19 Creatinine 0.8 mg/dL (0.5-0.9) 05/23/24 11:19 GFR Calculation 79.9 mL/min (90-130) L 05/23/24 11:19 Glucose 91 mg/dL (65-115) 05/23/24 11:19 Calculated Osmolality 282 mOsm/kg (285-295) L 05/23/24 11:19 Calcium 8.5 mg/dL (8.5-10.5) 05/23/24 11:19 Total Bilirubin 0.4 mg/dL (0.15-1.2) 05/23/24 11:19 AST 30 U/L (0-32) 05/23/24 11:19 ALT 21 U/L (0-33) 05/23/24 11:19 Alkaline Phosphatase 51 U/L (35-105) 05/23/24 11:19 Total Protein 6.3 g/dL (6.6-8.7) L 05/23/24 11:19 Albumin 3.7 g/dL (3.5-5.2) 05/23/24 11:19 Globulin 2.6 g/dL (1.3-4.6) 05/23/24 11:19 No radiology studies performed this visit Discharge Plan Discharge Patient Disposition: Home Clinical Impression: Lumbar stenosis with neurogenic claudication, Postoperative seroma, Post- laminectomy syndrome Condition: Stable Prescriptions: New prednisone 20 mg tablet 20 mg PO TID Qty: 15 0RF Rx Instructions: 1 p.o. 3 times daily x3 days, 1 p.o. twice daily x2 days, 1 p.o. daily x2 days No Action (DME) blood-glucose meter [Blood Glucose Monitoring] Kit See Rx Instructions .ROUTE .MEDSUPPLY Qty: 1 0RF Rx Instructions: check blood sugar daily and as directed (DME) Blood Glucose Test Strip See Rx Instructions .ROUTE .MEDSUPPLY Qty: 50 12RF Rx Instructions: check blood sugar daily and As directed (DME) lancets [Acti-Ovi Lancets] 28 gauge misc See Rx Instructions .Route Qty: 100 12RF Rx Instructions: check blood sugars daily and as directed deferasirox 500 mg tablet, dispersible 500 mg PO DAILY pregabalin 150 mg capsule 150 mg PO BID Qty: 60 2RF metoprolol tartrate 25 mg tablet 25 mg PO BID Qty: 60 2RF zolmitriptan 5 mg tablet See Rx Instructions PO .COMPLEX Qty: 10 5RF Rx Instructions: take 1 tab at onset of headache; if no relief, may repeat 1 tab after at least 2 hrs; max = 2 tabs/24 hrs PO cyclobenzaprine 10 mg tablet See Rx Instructions .ROUTE .COMPLEX Qty: 60 2RF Dose Instruction: TAKE ONE TABLET BY MOUTH THREE TIMES DAILY NEEDED FOR MUSCLE SPASMS Rx Instructions: TAKE ONE TABLET BY MOUTH THREE TIMES DAILY NEEDED FOR MUSCLE SPASMS venlafaxine 150 mg capsule,extended release 24hr 150 mg PO QAM Qty: 30 2RF pantoprazole [Protonix] 40 mg tablet,delayed release (DR/EC) 40 mg PO DAILY Qty: 90 1RF epinephrine [EpiPen 2-Owen] 0.3 mg/0.3 mL auto-injector 0.3 mg IM Q15M PRN (Reason: anaphylaxis) Qty: 2 0RF levothyroxine 112 mcg tablet See Rx Instructions .ROUTE .COMPLEX Qty: 30 2RF Dose Instruction: TAKE ONE TABLET BY MOUTH DAILY Rx Instructions: TAKE ONE TABLET BY MOUTH DAILY Ozempic 1 mg/dose (4 mg/3 mL) pen injector See Rx Instructions .ROUTE .COMPLEX Qty: 3 2RF Dose Instruction: INJECT 1mg SUBCUTANEOUSLY WEEKLY Rx Instructions: INJECT 1mg SUBCUTANEOUSLY WEEKLY celecoxib [Celebrex] 100 mg capsule 100 mg PO BID Qty: 60 0RF oxycodone-acetaminophen 5-325 mg tablet 1 tab PO Q4H PRN (Reason: pain) 7 Days Qty: 42 0RF Discharge Orders: Discharge ED (Routine); Ordered 05/23/24 Ordered By: Stanislav Rudd Referrals: Deric Camp DO [Primary Care Provider] - Patient Instructions: Opioid Safety, Pain Management Activity Restrictions/Additional Instructions: Thank you for choosing [facility] for your healthcare needs today. It is very important that you follow up as instructed or that you return to the Emergency Department should you have concerns or if your condition changes or worsens in any way. You were seen in the emergency room with drainage from your incision. There is no sign of infection. This most likely a postoperative seroma and will likely continue to drain the next few days. We started you on a course of steroids continue the previously prescribed pain medications given to you by Dr. Camp. Continue to follow all of his postoperative instructions. I did discuss your case this afternoon with Dr. Alanis and he asked that you change the dressing at least twice a day. Follow-up with him in the office in 2 to 3 days Coding Level of Care Code ED Road Boss for Jed Mckeon
[2024-05-23 11:49] LABS: Basophils % 0.2 %; Eosinophils # 0.5 10^3/uL (0.0-0.8); Eosinophils % 5.8 %; Hematocrit 39.5 % (36-47); Lymphocytes # 2.3 10^3/uL (0.8-4.8); Lymphocytes % 28.8 %; Mean Corpuscular HGB Conc 32.9 g/dL (30-55); Mean Corpuscular Hemoglobin 29.7 pg (27-33); Mean Corpuscular Volume 90.2 fl (85-98); Mean Platelet Volume 12.3 fL (7.4-10.4); Monocytes # 0.6 10^3/uL (0.2-0.9); Monocytes % 7.9 %; Neutrophils % 56.7 %; Nucleated Red Blood Cells % 0 %; Platelet Count 219 10^3/cmm (157-399); Red Blood Count 4.38 10^6/uL (3.85-5.65); Red Cell Distribution Width 13.3 % (12.1-15.1); White Blood Count 8.12 10^3/uL (3.29-11.43)
[2024-05-23 12:02] LABS: Alanine Aminotransferase 21 U/L (0-33); Albumin Level 3.7 g/dL (3.5-5.2); Alkaline Phosphatase 51 U/L (35-105); Anion Gap 13.1 (5-19); Aspartate Amino Transferase 30 U/L (0-32); Blood Urea Nitrogen 9 mg/dL (6-20); Calcium 8.5 mg/dL (8.5-10.5); Carbon Dioxide 30 mmol/L (22-29); Chloride 98 mmol/L (98-107); Globulin 2.6 g/dL (1.3-4.6); Glomerular Filtration Rate 79.9 mL/min (90-130); Glucose 91 mg/dL (65-115); Osmolality Calculated 282 mOsm/kg (285-295); Potassium 4.1 mmol/L (3.5-5.1); Sodium 137 mmol/L (136-145); Total Bilirubin 0.4 mg/dL (0.15-1.2); Total Protein 6.3 g/dL (6.6-8.7)
[2024-05-23] MEDS: morphine 4 mg/mL SDV 1 mL IVP (12:11)
== END 2024-05-23 13:03 | disposition home or self-care (01) ==
PROVIDERS: Emergency Provider Family Medicine; PCP Orthopaedic Surgery
DX: M48.062 Spinal stenosis, lumbar region with neurogenic claudication (principal); L76.34 Postprocedural seroma of skin and subcutaneous tissue following other procedure; M96.1 Postlaminectomy syndrome, not elsewhere classified
CPT/HCPCS: 80053; 85025; 96374; 99284; J2270

== ENCOUNTER 2024-05-29 19:26 | Emergency (ER) | payer MEDICAID, SELFPAY ==
[2024-05-29 19:31] VITALS: BP 109/76; PULSE 87; RESP 17; TEMP 36.7; O2SAT 98; BMI 34.9
[2024-05-29] MEDS: ondansetron 4 MG Tablet PO (20:27)
[2024-05-29] MEDS: acetaminophen 500 mg Tablet 1000 MG PO (20:27)
[2024-05-29] MEDS: lidocaine 2% INJ 20 mL INJECTION (20:28)
--- NOTE | 2024-05-29 20:57 | ED_ITS ---
Documented by User: KODAK Slade 05/29/24 21:16 HPI - Wound/Laceration General: Chief Complaint: Wound/Laceration Stated Complaint: right finger laceration Time Seen by Provider: 05/29/24 19:38 Source: patient Mode of arrival: ambulatory Limitations: no limitations History of Present Illness: Patient is a 39-year-old female who presents the emergency department after laceration to her right index finger that occurred prior to arrival. She cut her finger on a brand-new box office clerk while attempting to cut open something, there is still some active bleeding on arrival. She states she started feeling sick due to the side of the blood in the pain, however at this time is comfortable but does appear somewhat tired at time of examination. Vitals were normal. Her tetanus was updated a couple of years ago. No foreign body or contamination. Cut his to the finger pad of the right index finger, no nailbed involvement. Onset (ago): hour(s) Extremity Location: Right: hand (Index finger) Place: home Patient tetanus UTD: Yes Context: accidental Associated symptoms: Denies chills, fever(s), nausea or vomiting Related Data Home Medications Medication Instructions Recorded Confirmed deferasirox 500 mg dispersible 500 mg PO DAILY 08/06/23 05/26/24 tablet Previous Rx's Medication Instructions Recorded blood sugar diagnostic (Blood #50 ea 04/19/23 Glucose Test strips) blood-glucose meter (Blood Glucose #1 ea 04/19/23 Monitoring kit) lancets 28 gauge (Acti-Ovi #100 ea 04/19/23 Lancets) epinephrine 0.3 mg/0.3 mL 0.3 mg (0.3 mL) IM Q15M PRN 01/17/24 injection, auto-injector (EpiPen anaphylaxis #2 ea 2-Owen) pantoprazole 40 mg tablet,delayed 40 mg PO DAILY #90 tabs 01/17/24 release (Protonix) metoprolol tartrate 25 mg tablet 25 mg PO BID #60 tabs 02/26/24 pregabalin 150 mg capsule 150 mg PO BID #60 caps 02/26/24 zolmitriptan 5 mg tablet See Rx Instructions PO .COMPLEX 02/26/24 #10 tabs levothyroxine 112 mcg tablet See Rx Instructions .Route 04/13/24 .COMPLEX #30 tabs venlafaxine 150 mg 150 mg PO QAM #30 caps 04/17/24 capsule,extended release 24 hr semaglutide 1 mg/dose (4 mg/3 mL) See Rx Instructions .Route 05/04/24 subcutaneous pen injector (Ozempic) .COMPLEX #3 mL celecoxib 100 mg capsule (Celebrex) 100 mg PO BID #60 caps 05/21/24 prednisone 20 mg tablet 20 mg PO TID #15 tabs 05/23/24 Bone Growth Stimulator #1 ea 05/25/24 cyclobenzaprine 10 mg tablet See Rx Instructions .Route 05/25/24 .COMPLEX #60 tabs oxycodone-acetaminophen 5 mg-325 1 tab PO Q4H PRN pain 7 days #42 05/28/24 mg tablet tabs cephalexin 500 mg capsule 500 mg PO BID 5 days #10 caps 05/29/24 Allergies Allergy/AdvReac Type Severity Reaction Status Date / Time codeine Allergy ALGY-Rash Verified 05/29/24 19:35 diphenhydramine Allergy ALGY-Anaphy Verified 05/29/24 19:35 [From Benadryl] laxis hydrocodone Allergy ALGY-Rash Verified 05/29/24 19:35 latex Allergy ALGY-Bliste Verified 05/29/24 19:35 r liraglutide [From Victoza] Allergy ADR-Abdominal Verified 05/29/24 19:35 Pain sertraline [From Zoloft] Allergy worsening Verified 05/29/24 19:35 depression Sulfa (Sulfonamide Allergy ADR-Nausea Verified 05/29/24 19:35 Antibiotics) tramadol Allergy ADR-Vomitin Verified 05/29/24 19:35 g Review of Systems General: Reports: 10 or more systems reviewed and unremarkable except in HPI and below Const: Denies: fever(s) or chills Card: Denies: chest pain Resp: Denies: dyspnea GI: Denies: abdominal pain, nausea, vomiting or diarrhea Musc: Denies: extremity pain or joint pain Skin/Breast: Reports: skin pain, skin tenderness and new lesions (Laceration right index finger); Denies: rash Neuro: Denies: headache(s) PFSH ED PFSH: Medical History GERD (gastroesophageal reflux disease) Surgical History History of neck surgery History of back surgery 2019 fusion c5/6 History of sinus surgery ~2018 [place] History of bilateral breast reduction surgery age 14 History of hysterectomy partial; one ovary remaining ~2009 Dr. Rain Hx of cholecystectomy ~2012 [facility] Family History Father Cancer nose removal Diabetes Hyperlipidemia Mother Cancer estrogen driven breast cancer Clotting disorder clotting disorder unknown Diabetes Hyperlipidemia Hypertension Stroke Grandmother Cancer leukemia(maternal) Dementia Diabetes Grandfather Cancer lung cancer(maternal) Diabetes maternal Lung disease maternal Grandfather Diabetes maternal Grandmother Diabetes paternal Brother Diabetes Family/Other Psychiatric illness maternal uncle Other Anesthesia complication Denies family history of CAD (coronary artery disease) Chronic kidney disease (CKD) Suicide Bleeding disorder Family history of premature coronary artery disease Social History Smoking and tobacco/nicotine status: never used tobacco/nicotine Second hand smoke exposure: No Alcohol intake: never Substance/Drug Use: never Physical Exam Const: COMMON NORMALS: no acute distress, average body habitus, patient oriented x3, no limitations, healthy appearing, alert and well nourished HENMT: COMMON NORMALS: normocephalic and atraumatic HEAD & SCALP: normocephalic and atraumatic Neck/C-Spine: COMMON NORMALS: full ROM, no lymphadenopathy, supple and no meningeal signs Resp: COMMON NORMALS: normal respiratory effort, No use of accessory muscles and clear to auscultation bilaterally AUSCULTATION: clear to auscultation bilaterally Cardio: COMMON NORMALS: regular rate and regular rhythm RATE: regular rate RHYTHM: regular rhythm Extremity: COMMON NORMALS: full ROM and capillary refill normal Neuro: COMMON NORMALS: patient oriented x3 SENSORIUM/ORIENTATION: Yes alert MENINGEAL SIGNS: Yes no meningeal signs Skin: COMMON NORMALS: turgor normal NARRATIVE SKIN EXAM: 3 cm laceration to finger pad of right i ndex finger with no foreign body, contamination, or nailbed involvement. GENERAL SKIN EXAM: turgor normal Procedures Laceration Laceration 1: Site: hand Side (If applicable): right Size (cm): 3 Description: linear and clean Depth: simple, single layer Pre-repair: wound explored Skin layer closed with: nylon Size (cm): 5-0 Number of sutures: 6 Technique: simple, interrupted Nerve Block Nerve Block 1: Time out performed: No Local Anesthetic: lidocaine 2% Amount of anesthesia used (mL): 5 Nerve Blocks: digital Procedure Successful: Yes Patient Tolerated Procedure: well Complications: none Course Vital Signs: Vital signs: Vital Signs Temperature 98.1 F 05/29/24 19:31 Pulse Rate 66 05/29/24 21:16 Respiratory Rate 16 05/29/24 21:16 Blood Pressure 115/77 05/29/24 21:16 Pulse Oximetry 98 05/29/24 21:16 Oxygen Delivery Me thod Room Air 05/29/24 21:05 MDM - Wound/Laceration Medical Decision Making Patient cut her right index finger on a box office clerk, her tetanus was up-to-date. No neurovascular deficits noted on exam, bleeding was minor still upon removal of bandage. Digital block obtained and tolerated well. Her laceration was repaired, see procedure note. She will be started on a short course of prophylactic antibiotics, proper wound care discussed, she is to have the sutures out in 5 days with primary care. Return precautions given. No radiology studies performed this visit Discharge Plan Discharge Patient Disposition: Home Clinical Impression: Laceration of right index finger Qualifiers: Encounter type: initial encounter Damage to nail status: without damage Foreign body presence: without foreign body Qualified Code(s): S61.210A - Laceration without foreign body of right index finger without damage to nail, initial encounter Condition: Stable Prescriptions: New cephalexin 500 mg capsule 500 mg PO BID 5 Days Qty: 10 0RF No Action (DME) blood-glucose meter [Blood Glucose Monitoring] Kit See Rx Instructions .ROUTE .MEDSUPPLY Qty: 1 0RF Rx Instructions: check blood sugar daily and as directed (DME) Blood Glucose Test Strip See Rx Instructions .ROUTE .MEDSUPPLY Qty: 50 12RF Rx Instructions: check blood sugar daily and As directed (DME) lancets [Acti-Ovi Lancets] 28 gauge misc See Rx Instructions .Route Qty: 100 12RF Rx Instructions: check blood sugars daily and as directed deferasirox 500 mg tablet, dispersible 500 mg PO DAILY pregabalin 150 mg capsule 150 mg PO BID Qty: 60 2RF metoprolol tartrate 25 mg tablet 25 mg PO BID Qty: 60 2RF zolmitriptan 5 mg tablet See Rx Instructions PO .COMPLEX Qty: 10 5RF Rx Instructions: take 1 tab at onset of headache; if no relief, may repeat 1 tab after at least 2 hrs; max = 2 tabs/24 hrs PO venlafaxine 150 mg capsule,extended release 24hr 150 mg PO QAM Qty: 30 2RF pantoprazole [Protonix] 40 mg tablet,delayed release (DR/EC) 40 mg PO DAILY Qty: 90 1RF epinephrine [EpiPen 2-Owen] 0.3 mg/0.3 mL auto-injector 0.3 mg IM Q15M PRN (Reason: anaphylaxis) Qty: 2 0RF levothyroxine 112 mcg tablet See Rx Instructions .ROUTE .COMPLEX Qty: 30 2RF Dose Instruction: TAKE ONE TABLET BY MOUTH DAILY Rx Instructions: TAKE ONE TABLET BY MOUTH DAILY Ozempic 1 mg/dose (4 mg/3 mL) pen injector See Rx Instructions .ROUTE .COMPLEX Qty: 3 2RF Dose Instruction: INJECT 1mg SUBCUTANEOUSLY WEEKLY Rx Instructions: INJECT 1mg SUBCUTANEOUSLY WEEKLY celecoxib [Celebrex] 100 mg capsule 100 mg PO BID Qty: 60 0RF cyclobenzaprine 10 mg tablet See Rx Instructions .ROUTE .COMPLEX Qty: 60 0RF Dose Instruction: TAKE ONE TABLET BY MOUTH THREE TIMES DAILY NEEDED FOR MUSCLE SPASMS Rx Instructions: TAKE ONE TABLET BY MOUTH THREE TIMES DAILY NEEDED FOR MUSCLE SPASMS (DME) Bone Growth Stimulator See Rx Instructions .Route .MEDSUPPLY Qty: 1 0RF Rx Instructions: As directed oxycodone-acetaminophen 5-325 mg tablet 1 tab PO Q4H MDD 6 PRN (Reason: pain) 7 Days Qty: 42 0RF prednisone 20 mg tablet 20 mg PO TID Qty: 15 0RF Rx Instructions: 1 p.o. 3 times daily x3 days, 1 p.o. twice daily x2 days, 1 p.o. daily x2 days Discharge Orders: Discharge ED (Routine); Ordered 05/29/24 Ordered By: Sajan Conner Patient Instructions: Laceration (ED) Activity Restrictions/Additional Instructions: Sutures out in 5 days. Antibiotics as prescribed. Keep wound out of water and do not soak for 24 hours. Afterwards when you clean, may dab with warm soap and water and then dab dry afterwards. Tylenol and ibuprofen for any pain. Return with any signs of infection and follow-up routinely with primary care. Coding Level of Care Code ED Report Programmer for [facility]g [facility] Documented by User: Eric Washburn DO 05/30/24 18:07 HPI - Wound/Laceration General: Chief Complaint: Wound/Laceration Stated Complaint: right finger laceration Time Seen by Provider: 05/29/24 19:38 Related Data Home Medications Medication Instructions Recorded Confirmed deferasirox 500 mg dispersible 500 mg PO DAILY 08/06/23 05/26/24 tablet Previous Rx's Medication Instructions Recorded blood sugar diagnostic (Blood #50 ea 04/19/23 Glucose Test strips) blood-glucose meter (Blood Glucose #1 ea 04/19/23 Monitoring kit) lancets 28 gauge (Acti-Ovi #100 ea 04/19/23 Lancets) epinephrine 0.3 mg/0.3 mL 0.3 mg (0.3 mL) IM Q15M PRN 01/17/24 injection, auto-injector (EpiPen anaphylaxis #2 ea 2-Owen) pantoprazole 40 mg tablet,delayed 40 mg PO DAILY #90 tabs 01/17/24 release (Protonix) metoprolol tartrate 25 mg tablet 25 mg PO BID #60 tabs 02/26/24 pregabalin 150 mg capsule 150 mg PO BID #60 caps 02/26/24 zolmitriptan 5 mg tablet See Rx Instructions PO .COMPLEX 02/26/24 #10 tabs levothyroxine 112 mcg tablet See Rx Instructions .Route 04/13/24 .COMPLEX #30 tabs venlafaxine 150 mg 150 mg PO QAM #30 caps 04/17/24 capsule,extended release 24 hr semaglutide 1 mg/dose (4 mg/3 mL) See Rx Instructions .Route 05/04/24 subcutaneous pen injector (Ozempic) .COMPLEX #3 mL celecoxib 100 mg capsule (Celebrex) 100 mg PO BID #60 caps 05/21/24 prednisone 20 mg tablet 20 mg PO TID #15 tabs 05/23/24 Bone Growth Stimulator #1 ea 05/25/24 cyclobenzaprine 10 mg tablet See Rx Instructions .Route 05/25/24 .COMPLEX #60 tabs oxycodone-acetaminophen 5 mg-325 1 tab PO Q4H PRN pain 7 days #42 05/28/24 mg tablet tabs cephalexin 500 mg capsule 500 mg PO BID 5 days #10 caps 05/29/24 Allergies Allergy/AdvReac Type Severity Reaction Status Date / Time codeine Allergy ALGY-Rash Verified 05/29/24 19:35 diphenhydramine Allergy ALGY-Anaphy Verified 05/29/24 19:35 [From Benadryl] laxis hydrocodone Allergy ALGY-Rash Verified 05/29/24 19:35 latex Allergy ALGY-Bliste Verified 05/29/24 19:35 r liraglutide [From Victoza] Allergy ADR-Abdominal Verified 05/29/24 19:35 Pain sertraline [From Zoloft] Allergy worsening Verified 05/29/24 19:35 depression Sulfa (Sulfonamide Allergy ADR-Nausea Verified 05/29/24 19:35 Antibiotics) tramadol Allergy ADR-Vomitin Verified 05/29/24 19:35 g PFSH ED PFSH: Medical History GERD (gastroesophageal reflux disease) Surgical History History of neck surgery History of back surgery 2019 fusion c5/6 History of sinus surgery ~2018 [place] [facility] History of bilateral breast reduction surgery age 14 History of hysterectomy partial; one ovary remaining ~2009 Dr. Rain Hx of cholecystectomy ~2012 [facility] Family History Father Cancer nose removal Diabetes Hyperlipidemia Mother Cancer estrogen driven breast cancer Clotting disorder clotting disorder unknown Diabetes Hyperlipidemia Hypertension Stroke Grandmother Cancer leukemia(maternal) Dementia Diabetes Grandfather Cancer lung cancer(maternal) Diabetes maternal Lung disease maternal Grandfather Diabetes maternal Grandmother Diabetes paternal Brother Diabetes Family/Other Psychiatric illness maternal uncle Other Anesthesia complication Denies family history of CAD (coronary artery disease) Chronic kidney disease (CKD) Suicide Bleeding disorder Family history of premature coronary artery disease Social History Smoking and tobacco/nicotine status: never used tobacco/nicotine Second hand smoke exposure: No Alcohol intake: never Substance/Drug Use: never Course Vital Signs: Vital signs: Vital Signs Temperature 98.1 F 05/29/24 19:31 Pulse Rate 66 05/29/24 21:16 Respiratory Rate 16 05/29/24 21:16 Blood Pressure 115/77 05/29/24 21:16 Pulse Oximetry 98 05/29/24 21:16 Oxygen Delivery Me thod Room Air 05/29/24 21:05 MDM - Wound/Laceration Medical Decision Making Patient cut her right index finger on a box office clerk, her tetanus was up-to-date. No neurovascular deficits noted on exam, bleeding was minor still upon removal of bandage. Digital block obtained and tolerated well. Her laceration was repaired, see procedure note. She will be started on a short course of prophylactic antibiotics, proper wound care discussed, she is to have the sutures out in 5 days with primary care. Return precautions given. This patient was originally seen by Mr. Dalila PA-C.? I agree with his history, evaluation, and treatment. Discharge Plan Discharge Patient Disposition: Home Clinical Impression: Laceration of right index finger Qualifiers: Encounter type: initial encounter Damage to nail status: without damage Foreign body presence: without foreign body Qualified Code(s): S61.210A - Laceration without foreign body of right index finger without damage to nail, initial encounter Condition: Stable Prescriptions: New cephalexin 500 mg capsule 500 mg PO BID 5 Days Qty: 10 0RF No Action (DME) blood-glucose meter [Blood Glucose Monitoring] Kit See Rx Instructions .ROUTE .MEDSUPPLY Qty: 1 0RF Rx Instructions: check blood sugar daily and as directed (DME) Blood Glucose Test Strip See Rx Instructions .ROUTE .MEDSUPPLY Qty: 50 12RF Rx Instructions: check blood sugar daily and As directed (DME) lancets [Acti-Ovi Lancets] 28 gauge misc See Rx Instructions .Route Qty: 100 12RF Rx Instructions: check blood sugars daily and as directed deferasirox 500 mg tablet, dispersible 500 mg PO DAILY pregabalin 150 mg capsule 150 mg PO BID Qty: 60 2RF metoprolol tartrate 25 mg tablet 25 mg PO BID Qty: 60 2RF zolmitriptan 5 mg tablet See Rx Instructions PO .COMPLEX Qty: 10 5RF Rx Instructions: take 1 tab at onset of headache; if no relief, may repeat 1 tab after at least 2 hrs; max = 2 tabs/24 hrs PO venlafaxine 150 mg capsule,extended release 24hr 150 mg PO QAM Qty: 30 2RF pantoprazole [Protonix] 40 mg tablet,delayed release (DR/EC) 40 mg PO DAILY Qty: 90 1RF epinephrine [EpiPen 2-Owen] 0.3 mg/0.3 mL auto-injector 0.3 mg IM Q15M PRN (Reason: anaphylaxis) Qty: 2 0RF levothyroxine 112 mcg tablet See Rx Instructions .ROUTE .COMPLEX Qty: 30 2RF Dose Instruction: TAKE ONE TABLET BY MOUTH DAILY Rx Instructions: TAKE ONE TABLET BY MOUTH DAILY Ozempic 1 mg/dose (4 mg/3 mL) pen injector See Rx Instructions .ROUTE .COMPLEX Qty: 3 2RF Dose Instruction: INJECT 1mg SUBCUTANEOUSLY WEEKLY Rx Instructions: INJECT 1mg SUBCUTANEOUSLY WEEKLY celecoxib [Celebrex] 100 mg capsule 100 mg PO BID Qty: 60 0RF cyclobenzaprine 10 mg tablet See Rx Instructions .ROUTE .COMPLEX Qty: 60 0RF Dose Instruction: TAKE ONE TABLET BY MOUTH THREE TIMES DAILY NEEDED FOR MUSCLE SPASMS Rx Instructions: TAKE ONE TABLET BY MOUTH THREE TIMES DAILY NEEDED FOR MUSCLE SPASMS (DME) Bone Growth Stimulator See Rx Instructions .Route .MEDSUPPLY Qty: 1 0RF Rx Instructions: As directed oxycodone-acetaminophen 5-325 mg tablet 1 tab PO Q4H MDD 6 PRN (Reason: pain) 7 Days Qty: 42 0RF prednisone 20 mg tablet 20 mg PO TID Qty: 15 0RF Rx Instructions: 1 p.o. 3 times daily x3 days, 1 p.o. twice daily x2 days, 1 p.o. daily x2 days Discharge Orders: Discharge ED (Routine); Ordered 05/29/24 Ordered By: Sajan Conner Patient Instructions: Laceration (ED) Activity Restrictions/Additional Instructions: Sutures out in 5 days. Antibiotics as prescribed. Keep wound out of water and do not soak for 24 hours. Afterwards when you clean, may dab with warm soap and water and then dab dry afterwards. Tylenol and ibuprofen for any pain. Return with any signs of infection and follow-up routinely with primary care. Coding Level of Care Code ED Report Programmer for Jed Mckeon
[2024-05-29] MEDS: cephALEXin 500 mg Capsule PO (21:02)
[2024-05-29 21:05] VITALS: BP 115/77; PULSE 66; RESP 16; O2SAT 98
[2024-05-29 21:16] VITALS: BP 115/77; PULSE 66; RESP 16; O2SAT 98
== END 2024-05-29 21:08 | disposition home or self-care (01) ==
PROVIDERS: Emergency Provider Physician Assistant
DX: S61.210A Laceration without foreign body of right index finger without damage to nail, initial encounter (principal); W45.8XXA Other foreign body or object entering through skin, initial encounter
CPT/HCPCS: 12002; 99283; Q0162

== ENCOUNTER 2024-06-13 11:17 | Emergency (ER) | payer MEDICAID, SELFPAY ==
[2024-06-13 12:32] VITALS: BP 104/64; PULSE 110; RESP 18; TEMP 36.7; O2SAT 97; BMI 43.2
--- NOTE | 2024-06-13 12:39 | CTR_ITS ---
PROCEDURE INFORMATION: Exam: CT Lumbar Spine Without Contrast Exam date and time: 06/13/2024 12:56 PM Age: 39 years old Clinical indication: Injury or trauma; Fall; Blunt trauma (contusions or hematomas); Prior surgery; Surgery date: <1 month; Surgery type: 05/20 lumbar; Additional info: Trauma, recent surgery TECHNIQUE: Imaging protocol: Computed tomography of the lumbar spine without contrast. Radiation optimization: All CT scans at this facility use at least one of these dose optimization techniques: automated exposure control; mA and/or kV adjustment per patient size (includes targeted exams where dose is matched to clinical indication); or iterative reconstruction. COMPARISON: MR lumbar spine wo con* [id number] 04/20/2024 7:40 AM RADIATION DOSE METRICS: Total DLP (mGy-cm): 1155.5 FINDINGS: Bones/joints: The lumbar vertebral body heights are maintained. Grade 1 anterolisthesis of L4 on L5 measuring up to 0.5 cm. There has been interval surgery with L4 laminectomy and partial L5 laminectomy, and bilateral L4-L5 facetectomies. Posterior hardware fixation with pedicle screws and interconnecting rods spanning L4 and L5. Interbody construct at L4-L5 disc space. The hardware creates artifact limiting evaluation of the immediately adjacent bone and soft tissues. L1-L2: No significant disc bulge or herniation. No severe spinal canal stenosis. No significant neuroforaminal narrowing. L2-L3: Question right paracentral disc protrusion measuring up to 1.3 cm in transverse dimension by 0 point 4 cm in AP dimension with mild central canal stenosis. Mild right neuroforaminal narrowing. L3-L4: Broad concentric disc bulge and bilateral facet arthropathy contributing to [id number] central canal stenosis. Minimal bilateral neuroforaminal narrowing. L4-L5: Spinal canal has been decompressed by laminectomy. No significant neuroforaminal narrowing. L5-S1: No significant disc bulge or herniation. No severe spinal canal stenosis. No significant neuroforaminal narrowing. Soft tissues: Fluid collection seen within the laminectomy defect extending into the posterior subcutaneous tissues measuring roughly up to 3.5 x 7.6 x 10.0 cm. This may represent a postoperative seroma. Pseudomeningocele or infected collection cannot be excluded. CT/CT lumbar spine wo con* [id number] IMPRESSION: Postsurgical and multilevel degenerative changes of the lumbar spine as outlined above. Fluid collection within the laminectomy defect extending into the subcutaneous tissues of the posterior back may represent a postoperative seroma. Infected collection or pseudomeningocele cannot be excluded on this study. Recommend clinical correlation. If symptoms persist, consider further evaluation with MRI, if MRI is clinically safe to obtain.
[2024-06-13 13:29] LABS: Basophils % 0.2 %; Eosinophils # 0.5 10^3/uL (0.0-0.8); Eosinophils % 3.4 %; Hematocrit 42.6 % (36-47); Mean Corpuscular HGB Conc 32.9 g/dL (30-55); Mean Corpuscular Hemoglobin 29.3 pg (27-33); Mean Corpuscular Volume 89.1 fl (85-98); Mean Platelet Volume 12.8 fL (7.4-10.4); Monocytes # 1.1 10^3/uL (0.2-0.9); Monocytes % 7.6 %; Neutrophils # 10.78 10^3/uL (1.8-7.7); Neutrophils % 74.5 %; Nucleated Red Blood Cells % 0 %; Platelet Count 147 10^3/cmm (157-399); Red Blood Count 4.78 10^6/uL (3.85-5.65); Red Cell Distribution Width 13.2 % (12.1-15.1); White Blood Count 14.47 10^3/uL (3.29-11.43)
--- NOTE | 2024-06-13 13:32 | ED_ITS ---
HPI - Back Pain/Injury 2 General: Chief Complaint: Back Pain/Injury Stated Complaint: fell, back swollen, pain radiaties down to R. leg Time Seen by Provider: 06/13/24 12:39 History of Present Illness: 39-year-old female presents to the [facility] ency room complaining of back pain. About 3 weeks ago patient underwent back surgery with Dr. Camp 3 days ago she fell she has worsening pain with recurrence of right leg radicular pain. Today while she is here she began having serous drainage from her incision while lying on her back having CT done. No difficulty with bowel or bladder control. She still has functional able to bear weight and walk without difficulty under. Denies fever sweats or chills. Associated symptoms: Deny abdominal pain, chills, dysuria, fever(s) or urinary urgency Related Data Home Medications Medication Instructions Recorded Confirmed deferasirox 500 mg dispersible 500 mg PO DAILY 08/06/23 06/09/24 tablet Previous Rx's Medication Instructions Recorded blood sugar diagnostic (Blood #50 ea 04/19/23 Glucose Test strips) blood-glucose meter (Blood Glucose #1 ea 04/19/23 Monitoring kit) lancets 28 gauge (Acti-Ovi #100 ea 04/19/23 Lancets) epinephrine 0.3 mg/0.3 mL 0.3 mg (0.3 mL) IM Q15M PRN 01/17/24 injection, auto-injector (EpiPen anaphylaxis #2 ea 2-Owen) pantoprazole 40 mg tablet,delayed 40 mg PO DAILY #90 tabs 01/17/24 release (Protonix) pregabalin 150 mg capsule 150 mg PO BID #60 caps 02/26/24 zolmitriptan 5 mg tablet See Rx Instructions PO .COMPLEX 02/26/24 #10 tabs levothyroxine 112 mcg tablet See Rx Instructions .Route 04/13/24 .COMPLEX #30 tabs venlafaxine 150 mg 150 mg PO QAM #30 caps 04/17/24 capsule,extended release 24 hr semaglutide 1 mg/dose (4 mg/3 mL) See Rx Instructions .Route 05/04/24 subcutaneous pen injector (Ozempic) .COMPLEX #3 mL celecoxib 100 mg capsule (Celebrex) 100 mg PO BID #60 caps 05/21/24 Bone Growth Stimulator #1 ea 05/25/24 oxycodone-acetaminophen 5 mg-325 1 tab PO Q4H PRN pain 7 days #42 05/28/24 mg tablet tabs metoprolol tartrate 25 mg tablet See Rx Instructions .Route 06/04/24 .COMPLEX #60 tabs oxycodone-acetaminophen 5 mg-325 1 tab PO Q6H PRN pain #20 tabs 06/13/24 mg tablet prednisone 20 mg tablet 20 mg PO TID #15 tabs 06/13/24 tizanidine 4 mg tablet 4 mg PO Q6H PRN muscle spasticity 06/13/24 #20 tabs Allergies Allergy/AdvReac Type Severity Reaction Status Date / Time codeine Allergy ALGY-Rash Verified 06/04/24 15:15 diphenhydramine Allergy ALGY-Anaphy Verified 06/04/24 15:15 [From Benadryl] laxis hydrocodone Allergy ALGY-Rash Verified 06/04/24 15:15 latex Allergy ALGY-Bliste Verified 06/04/24 15:15 r liraglutide [From Victoza] Allergy ADR-Abdominal Verified 06/04/24 15:15 Pain sertraline [From Zoloft] Allergy worsening Verified 06/04/24 15:15 depression Sulfa (Sulfonamide Allergy ADR-Nausea Verified 06/04/24 15:15 Antibiotics) tramadol Allergy ADR-Vomitin Verified 06/04/24 15:15 g Review of Systems 2 Const: Denies: fever(s) or chills Card: Denies: chest pain Resp: Denies: dyspnea GI: Denies: abdominal pain : Denies: dysuria, urinary frequency or urinary urgency Musc: Reports: back pain and extremity pain; Denies: neck pain Skin/Breast: Denies: rash PFSH ED 2 PFSH: Medical History GERD (gastroesophageal reflux disease) Surgical History History of neck surgery History of back surgery 2019 fusion c5/6 History of sinus surgery ~2018 OPHELIA Chatterjee History of bilateral breast reduction surgery age 14 History of hysterectomy partial; one ovary remaining ~2009 Dr. Rain Hx of cholecystectomy ~2012 OPHELIA Otto Family History Father Cancer nose removal Diabetes Hyperlipidemia Mother Cancer estrogen driven breast cancer Clotting disorder clotting disorder unknown Diabetes Hyperlipidemia Hypertension Stroke Grandmother Cancer leukemia(maternal) Dementia Diabetes Grandfather Cancer lung cancer(maternal) Diabetes maternal Lung disease maternal Grandfather Diabetes maternal Grandmother Diabetes paternal Brother Diabetes Family/Other Psychiatric illness maternal uncle Other Anesthesia complication Denies family history of CAD (coronary artery disease) Chronic kidney disease (CKD) Suicide Bleeding disorder Family history of premature coronary artery disease Social History Smoking and tobacco/nicotine status: unknown if used tobacco/nicotine Second hand smoke exposure: No Alcohol intake: never Substance/Drug Use: never Physical Exam 2 Const: GENERAL APPEARANCE: cooperative ORIENTATION/CONSCIOUSNESS: Yes awake, Yes oriented to person, Yes oriented to place and Yes oriented to time HENMT: COMMON NORMALS: normocephalic, atraumatic and hearing grossly normal bilaterally HEAD & SCALP: normocephalic and atraumatic Resp: COMMON NORMALS: normal respiratory effort, No retractions, No use of accessory muscles and clear to auscultation bilaterally AUSCULTATION: clear to auscultation bilaterally Cardio: COMMON NORMALS: regular rate, regular rhythm and No murmurs present (Cardio) RATE: regular rate RHYTHM: regular rhythm GI: COMMON NORMALS: Soft to palpation and No hepatosplenomegaly present A USCULTATION: Yes normoactive bowel sounds PALPATION: Yes Soft to palpation, No Tenderness to palpation present (GI), No Guarding due to palpation present (GI) and Yes No hepatosplenomegaly present Extremity: COMMON NORMALS: normal to inspection, capillary refill normal, no clubbing, cyanosis or edema, no calf tenderness and no pedal edema Neuro: SENSORIUM/ORIENTATION: Yes oriented to person, Yes oriented to place and Yes oriented to time Skin: COMMON NORMALS: no rashes or lesions noted GENERAL SKIN EXAM: no rashes or lesions noted Course 2 Vital Signs: Vital signs: Vital Signs Temperature 98.1 F 06/13/24 12:32 Pulse Rate 110 H 06/13/24 12:32 Respiratory Rate 18 06/13/24 12:32 Blood Pressure 104/64 06/13/24 12:32 Pulse Oximetry 97 06/13/24 12:32 Oxygen Delivery Me thod Room Air 06/13/24 12:32 MDM - Back Pain/Injury Medical Decision Making Labs and imaging reviewed. Patient does have a seroma. There is a mild elevation in the white count. Discussed the findings with Dr. Camp. We do not believe at this point that there is no evidence of infection actively at the incision site the fluid drainage is serous. This is consistent with what is seen on the CT. Dr. Camp does not recommend antibiotics at this point will discharge patient home she is feeling somewhat better we will discharge her home on steroids pain medications anti-inflammatories. Advised the patient to follow-up with the same discharge instructions she received immediately after surgery. Follow-up with Dr. Ross or in the next several days. Medical Records I reviewed the patient's medical records. Labs I reviewed the patient's lab results. 06/13/24 13:16 06/13/24 13:16 Radiology Impressions Lumbar Spine CT 06/13/24 12:39 IMPRESSION: Postsurgical and multilevel degenerative changes of the lumbar spine as outlined above. Fluid collection within the laminectomy defect extending into the subcutaneous tissues of the posterior back may represent a postoperative seroma. Infected collection or pseudomeningocele cannot be excluded on this study. Recommend clinical correlation. If symptoms persist, consider further evaluation with MRI, if MRI is clinically safe to obtain. Laboratory Results WBC 14.47 10^3/uL (3.29-11.43) H 06/13/24 13:16 RBC 4.78 10^6/uL (3.85-5.65) 06/13/24 13:16 Hgb 14.00 g/dL (11.27-16.99) 06/13/24 13:16 Hct 42.6 % (36-47) 06/13/24 13:16 MCV 89.1 fl (85-98) 06/13/24 13:16 MCH 29.3 pg (27-33) 06/13/24 13:16 MCHC 32.9 g/dL (30-55) 06/13/24 13:16 RDW 13.2 % (12.1-15.1) 06/13/24 13:16 Plt Count 147 10^3/cmm (157-399) L 06/13/24 13:16 MPV 12.8 fL (7.4-10.4) H 06/13/24 13:16 Neut % (Auto) 74.5 % 06/13/24 13:16 Lymph % (Auto) 14.0 % 06/13/24 13:16 Tripp % (Auto) 7.6 % 06/13/24 13:16 Eos % (Auto) 3.4 % 06/13/24 13:16 Baso % (Auto) 0.2 % 06/13/24 13:16 Neut # (Auto) 10.78 10^3/uL (1.8-7.7) H 06/13/24 13:16 Lymph # (Auto) 2.0 10^3/uL (0.8-4.8) 06/13/24 13:16 Tripp # (Auto) 1.1 10^3/uL (0.2-0.9) H 06/13/24 13:16 Eos # (Auto) 0.5 10^3/uL (0.0-0.8) 06/13/24 13:16 Baso # (Auto) 0.0 10^3/uL (0.0-0.1) 06/13/24 13:16 Nucleated RBC % (auto) 0 % 06/13/24 13:16 Nucleated RBCs # 0.0 /100WBC 06/13/24 13:16 Sodium 138 mmol/L (136-145) 06/13/24 13:16 Potassium 4.1 mmol/L (3.5-5.1) 06/13/24 13:16 Chloride 101 mmol/L (98-107) 06/13/24 13:16 Carbon Dioxide 27 mmol/L (22-29) 06/13/24 13:16 Anion Gap 14.1 (5-19) 06/13/24 13:16 BUN 9 mg/dL (6-20) 06/13/24 13:16 Creatinine 0.8 mg/dL (0.5-0.9) 06/13/24 13:16 GFR Calculation 79.9 mL/min (90-130) L 06/13/24 13:16 Glucose 95 mg/dL (65-115) 06/13/24 13:16 Calculated Osmolality 284 mOsm/kg (285-295) L 06/13/24 13:16 Calcium 9.4 mg/dL (8.5-10.5) 06/13/24 13:16 Total Bilirubin 0.9 mg/dL (0.15-1.2) 06/13/24 13:16 AST 28 U/L (0-32) 06/13/24 13:16 ALT 28 U/L (0-33) 06/13/24 13:16 Alkaline Phosphatase 68 U/L (35-105) 06/13/24 13:16 C-Reactive Protein 74.8 mg/L (0.0-4.9) H 06/13/24 13:16 Total Protein 6.7 g/dL (6.6-8.7) 06/13/24 13:16 Albumin 4.1 g/dL (3.5-5.2) 06/13/24 13:16 Globulin 2.6 g/dL (1.3-4.6) 06/13/24 13:16 Urine Color Yellow (Yellow) 06/13/24 15:00 Urine Appearance Clear (CLEAR) 06/13/24 15:00 Urine pH 6.0 (5-7) 06/13/24 15:00 Ur Specific [place] 1.004 (1.005-1.030) L 06/13/24 15:00 Urine Protein Negative (Negative) 06/13/24 15:00 Urine Glucose (UA) Negative (Normal) 06/13/24 15:00 Urine Ketones Negative (Negative) 06/13/24 15:00 Urine Blood Negative (Negative) 06/13/24 15:00 Urine Nitrate Negative (Negative) 06/13/24 15:00 Urine Bilirubin Negative (Negative) 06/13/24 15:00 Urine Urobilinogen 1.0 mg/dL (Negative) 06/13/24 15:00 Ur Leukocyte Esterase Negative (Negative) 06/13/24 15:00 Urine RBC 0-2 /hpf (0-2) 06/13/24 15:00 Urine WBC 0-5 /hpf (0-5) 06/13/24 15:00 Ur Squamous Epith Cells 0-5 /hpf (0-5) 06/13/24 15:00 Amorphous Sediment Not Reportable 06/13/24 15:00 Urine Bacteria None seen /hpf (NONE) 06/13/24 15:00 Hyaline Casts 0-4 /lpf H 06/13/24 15:00 All radiology interpretation(s) finalized by discharge Discharge Plan Discharge Patient Disposition: Home Clinical Impression: Status post lumbar laminectomy, Seroma after procedure, Status post lumbar spinal fusion Condition: Stable Prescriptions: New tizanidine 4 mg tablet 4 mg PO Q6H PRN (Reason: muscle spasticity) Qty: 20 0RF Rx Instructions: do not exceed 3 doses per 24 hrs prednisone 20 mg tablet 20 mg PO TID Qty: 15 0RF Rx Instructions: 1 p.o. 3 times daily x3 days, 1 p.o. twice daily x2 days, 1 p.o. daily x2 days oxycodone-acetaminophen 5-325 mg tablet 1 tab PO Q6H PRN (Reason: pain) Qty: 20 0RF Discontinued cyclobenzaprine 10 mg tablet See Rx Instructions .ROUTE .COMPLEX Qty: 60 0RF Dose Instruction: TAKE ONE TABLET BY MOUTH THREE TIMES DAILY NEEDED FOR MUSCLE SPASMS Rx Instructions: TAKE ONE TABLET BY MOUTH THREE TIMES DAILY NEEDED FOR MUSCLE SPASMS No Action (DME) blood-glucose meter [Blood Glucose Monitoring] Kit See Rx Instructions .ROUTE .MEDSUPPLY Qty: 1 0RF Rx Instructions: check blood sugar daily and as directed (DME) Blood Glucose Test Strip See Rx Instructions .ROUTE .MEDSUPPLY Qty: 50 12RF Rx Instructions: check blood sugar daily and As directed (DME) lancets [Acti-Ovi Lancets] 28 gauge misc See Rx Instructions .Route Qty: 100 12RF Rx Instructions: check blood sugars daily and as directed deferasirox 500 mg tablet, dispersible 500 mg PO DAILY pregabalin 150 mg capsule 150 mg PO BID Qty: 60 2RF zolmitriptan 5 mg tablet See Rx Instructions PO .COMPLEX Qty: 10 5RF Rx Instructions: take 1 tab at onset of headache; if no relief, may repeat 1 tab after at least 2 hrs; max = 2 tabs/24 hrs PO venlafaxine 150 mg capsule,extended release 24hr 150 mg PO QAM Qty: 30 2RF pantoprazole [Protonix] 40 mg tablet,delayed release (DR/EC) 40 mg PO DAILY Qty: 90 1RF epinephrine [EpiPen 2-Owen] 0.3 mg/0.3 mL auto-injector 0.3 mg IM Q15M PRN (Reason: anaphylaxis) Qty: 2 0RF levothyroxine 112 mcg tablet See Rx Instructions .ROUTE .COMPLEX Qty: 30 2RF Dose Instruction: TAKE ONE TABLET BY MOUTH DAILY Rx Instructions: TAKE ONE TABLET BY MOUTH DAILY Ozempic 1 mg/dose (4 mg/3 mL) pen injector See Rx Instructions .ROUTE .COMPLEX Qty: 3 2RF Dose Instruction: INJECT 1mg SUBCUTANEOUSLY WEEKLY Rx Instructions: INJECT 1mg SUBCUTANEOUSLY WEEKLY celecoxib [Celebrex] 100 mg capsule 100 mg PO BID Qty: 60 0RF (DME) Bone Growth Stimulator See Rx Instructions .Route .MEDSUPPLY Qty: 1 0RF Rx Instructions: As directed oxycodone-acetaminophen 5-325 mg tablet 1 tab PO Q4H MDD 6 PRN (Reason: pain) 7 Days Qty: 42 0RF metoprolol tartrate 25 mg tablet See Rx Instructions .ROUTE .COMPLEX Qty: 60 2RF Dose Instruction: TAKE ONE TABLET BY MOUTH TWICE DAILY Rx Instructions: TAKE ONE TABLET BY MOUTH TWICE DAILY Discharge Orders: Discharge ED (Routine); Ordered 06/13/24 Ordered By: Stanislav Rudd Patient Instructions: Opioid Safety, Pain Management Activity Restrictions/Additional Instructions: Thank you for choosing [facility] for your healthcare needs today. It is very important that you follow up as instructed or that you return to the Emergency Department should you have concerns or if your condition changes or worsens in any way. You were seen in the emergency room for complaints of back pain. Urine was normal. The fluid that drained from your back is likely from a seroma this was also noted on the CT that was done today and no other significant abnormalities were noted. Examination your incision did not show any signs of infection I discussed your case with Dr. Camp reviewing the labs today imaging. He did not feel that this represented infection at this time recommend steroids gave you a different muscle relaxer and more of your pain medication she should follow-up with Dr. Camp's office early next week he will reevaluate and review the CT discussed if any further evaluation is needed. Coding Level of Care Code ED Environmental Intern for Jed Mckeon
[2024-06-13 13:53] LABS: Alanine Aminotransferase 28 U/L (0-33); Albumin Level 4.1 g/dL (3.5-5.2); Alkaline Phosphatase 68 U/L (35-105); Anion Gap 14.1 (5-19); Aspartate Amino Transferase 28 U/L (0-32); Blood Urea Nitrogen 9 mg/dL (6-20); C Reactive Protein 74.8 mg/L (0.0-4.9); Calcium 9.4 mg/dL (8.5-10.5); Carbon Dioxide 27 mmol/L (22-29); Chloride 101 mmol/L (98-107); Creatinine Clr Calc Pharmacy 121.2834; Globulin 2.6 g/dL (1.3-4.6); Glomerular Filtration Rate 79.9 mL/min (90-130); Glucose 95 mg/dL (65-115); Osmolality Calculated 284 mOsm/kg (285-295); Potassium 4.1 mmol/L (3.5-5.1); Sodium 138 mmol/L (136-145); Total Bilirubin 0.9 mg/dL (0.15-1.2); Total Protein 6.7 g/dL (6.6-8.7)
[2024-06-13] MEDS: ondansetron 2 mg/ML SDV 2 mL 4 MG IVP (13:53)
[2024-06-13] MEDS: ketorolac 30 mg/mL INJ IVP (13:53)
[2024-06-13] MEDS: morphine 4 mg/mL SDV 1 mL IVP (13:54)
[2024-06-13] MEDS: dexamethasone 10 mg/mL INJ IM (14:03)
[2024-06-13 16:00] LABS: Bilirubin Urine Negative (Negative); Blood Urine Negative (Negative); Glucose Urine UA Negative (Normal); Ketones Urine Negative (Negative); Leukocyte Esterase Urine Negative (Negative); Nitrate Urine Negative (Negative); Protein Urine Negative (Negative); Specific Gravity, Urine 1.004 (1.005-1.030); Urine Appearance Clear (CLEAR); Urine Color Yellow (Yellow)
[2024-06-13 16:05] LABS: Add Urine Microscopic? YES; Bacteria Urine None Seen /hpf; Hyaline Casts Urine 0-4 /lpf; RBC Urine 0-2 /hpf (0-2); Squamous Epithelial Cell Urine 0-5 /hpf (0-5); WBC Urine 0-5 /hpf (0-5)
[2024-06-13 16:59] VITALS: BP 95/65; PULSE 97; O2SAT 91
== END 2024-06-13 17:00 | disposition home or self-care (01) ==
PROVIDERS: Emergency Provider Family Medicine
DX: Z98.890 Other specified postprocedural states (principal); Z98.1 Arthrodesis status; M96.843 Postprocedural seroma of a musculoskeletal structure following other procedure
CPT/HCPCS: 36415; 72131; 80053; 81001; 85025; 86140; 87040; 96374; 96375; 99285; J1100; J1885; J2270; J2405

== ENCOUNTER 2024-06-14 06:00 | Outpatient (RCR) | payer MEDICAID, SELFPAY | END 2024-07-14 23:59 | disposition home or self-care (01) | LOC: TPT 06:00 | PROVIDERS: PCP Nurse Practitioner Family; Visit Provider Orthopaedic Surgery | DX: M54.2 Cervicalgia (principal); G89.29 Other chronic pain | CPT/HCPCS: 97110 ==

== ENCOUNTER → 2024-06-16 14:00 | Outpatient (BNVA) | payer MEDICAID, SELFPAY | PROVIDERS: Visit Provider Orthopaedic Surgery | DX: Z98.1 Arthrodesis status (principal) | CPT/HCPCS: 72100 ==

== ENCOUNTER → 2024-06-22 15:11 | Outpatient (BNVA) | payer MEDICAID, SELFPAY | PROVIDERS: PCP Nurse Practitioner Family; Visit Provider Nurse Practitioner Family | DX: E11.65 Type 2 diabetes mellitus with hyperglycemia (principal) | CPT/HCPCS: 80053; 80061; 83036; 84443; 85025 ==

== ENCOUNTER → 2024-06-23 10:11 | Outpatient (BNVA) | payer MEDICAID, SELFPAY | PROVIDERS: PCP Nurse Practitioner Family; Visit Provider Orthopaedic Surgery | DX: Z98.1 Arthrodesis status (principal) | CPT/HCPCS: 72100 ==

== ENCOUNTER 2024-06-29 11:22 | Emergency (ER) | payer MEDICAID, SELFPAY ==
[2024-06-29] VITALS (7 sets, daily range): BP systolic 112–151; BP diastolic 66–82; PULSE 88–95; RESP 16–19; TEMP 36.8; O2SAT 94–99; BMI 38.5
--- NOTE | 2024-06-29 11:37 | ECG_ITS ---
[facility] Test Date: 2024-06-29 Pat Name: Krissy Ramos Department: Room: Gender: Female [employer] Business Development Manager: : 1985 Requested By: Stanislav Mahmood Order Number: [id number] Ash MD: Fabio Fernando M.D. Measurements Intervals [place] Rate: 96 P: 44 MI: 158 QRS: 30 QRSD: 87 T: 13 QT: 356 QTc: 450 Interpretive Statements SINUS RHYTHM Compared to ECG 04/29/2024 09:22:45 No significant changes Electronically Signed On 06-29-2024 19:36:40 EARLY YEARS TEACHER by Fabio Fernando M.D. [email or web address]
[2024-06-29 13:13] LABS: Basophils % 0.3 %; Eosinophils # 0.4 10^3/uL (0.0-0.8); Hematocrit 41.7 % (36-47); Lymphocytes # 1.6 10^3/uL (0.8-4.8); Lymphocytes % 15.3 %; Mean Corpuscular HGB Conc 32.9 g/dL (30-55); Mean Corpuscular Hemoglobin 29.8 pg (27-33); Mean Corpuscular Volume 90.8 fl (85-98); Monocytes # 0.8 10^3/uL (0.2-0.9); Monocytes % 7.4 %; Neutrophils # 7.67 10^3/uL (1.8-7.7); Neutrophils % 72.4 %; Nucleated Red Blood Cells % 0 %; Platelet Count 224 10^3/cmm (157-399); Red Blood Count 4.59 10^6/uL (3.85-5.65); Red Cell Distribution Width 12.9 % (12.1-15.1); White Blood Count 10.58 10^3/uL (3.29-11.43)
[2024-06-29 13:33] LABS: HCG, Serum Qual Negative (Negative)
[2024-06-29 13:36] LABS: Alanine Aminotransferase 20 U/L (0-33); Albumin Level 3.8 g/dL (3.5-5.2); Alkaline Phosphatase 57 U/L (35-105); Anion Gap 17.8 (5-19); Aspartate Amino Transferase 18 U/L (0-32); Blood Urea Nitrogen 11 mg/dL (6-20); Carbon Dioxide 24 mmol/L (22-29); Chloride 106 mmol/L (98-107); Creatinine Clr Calc Pharmacy 134.4704; Globulin 3.3 g/dL (1.3-4.6); Glomerular Filtration Rate 93.2 mL/min (90-130); Glucose 89 mg/dL (65-115); Lipase 30 U/L (13-60); Osmolality Calculated 297 mOsm/kg (285-295); Potassium 3.8 mmol/L (3.5-5.1); Sodium 144 mmol/L (136-145); Total Bilirubin 0.3 mg/dL (0.15-1.2); Total Protein 7.1 g/dL (6.6-8.7)
[2024-06-29 14:33] LABS: Bilirubin Urine Negative (Negative); Blood Urine Negative (Negative); Glucose Urine UA Negative (Normal); Ketones Urine Negative (Negative); Leukocyte Esterase Urine Negative (Negative); Nitrate Urine Negative (Negative); Protein Urine Negative (Negative); Urine Appearance Clear (CLEAR); Urine Color Yellow (Yellow); pH Urine 5.5 (5-7)
[2024-06-29 14:36] LABS: Add Urine Microscopic? YES; Bacteria Urine None Seen /hpf; Hyaline Casts Urine 0.81 /lpf; RBC Urine 0-2 /hpf (0-2); Squamous Epithelial Cell Urine 0-5 /hpf (0-5); WBC Urine 0-5 /hpf (0-5)
--- NOTE | 2024-06-29 16:29 | W.ED.BACK ---
HPI - Back Pain/Injury General: Chief Complaint: Back Pain/Injury Stated Complaint: dizzy, weakness, vomitting Time Seen by Provider: 06/29/24 16:29 History of Present Illness: 39-year-old female presents emergency room complaining of dizziness weakness and vomiting. She had back surgery 6 weeks ago she had an infection along the incision and was on antibiotics for period time she comes in today complaining of nausea and vomiting. She states she is unable to eat or drink anything she denies any hematochezia melena hematemesis cough cramps fever sweats or chills no drainage from the wound. She is complaining of pain the top of her scalp intermittently gets very tender she has no history of falls or other injury. She also complaining of pain in her buttocks that radiates down the buttock. No swelling no injury no falls in the buttock or back. Associated symptoms: Deny abdominal pain, chills, dysuria, fever(s) or urinary urgency Related Data Home Medications Medication Instructions Recorded Confirmed deferasirox 500 mg dispersible 500 mg PO DAILY 08/06/23 06/23/24 tablet Previous Rx's Medication Instructions Recorded blood sugar diagnostic (Blood #50 ea 04/19/23 Glucose Test strips) blood-glucose meter (Blood Glucose #1 ea 04/19/23 Monitoring kit) lancets 28 gauge (Acti-Ovi #100 ea 04/19/23 Lancets) epinephrine 0.3 mg/0.3 mL 0.3 mg (0.3 mL) IM Q15M PRN 01/17/24 injection, auto-injector (EpiPen anaphylaxis #2 ea 2-Owen) zolmitriptan 5 mg tablet See Rx Instructions PO .COMPLEX 02/26/24 #10 tabs Bone Growth Stimulator #1 ea 05/25/24 metoprolol tartrate 25 mg tablet See Rx Instructions .Route 06/04/24 .COMPLEX #60 tabs oxycodone-acetaminophen 5 mg-325 1 tab PO Q6H PRN pain #20 tabs 06/13/24 mg tablet pregabalin 150 mg capsule 150 mg PO BID #60 caps 06/15/24 ciprofloxacin HCl 500 mg tablet 500 mg PO BID #20 tabs 06/16/24 celecoxib 100 mg capsule (Celebrex) 100 mg PO BID #60 caps 06/22/24 levothyroxine 112 mcg tablet See Rx Instructions .Route 06/22/24 .COMPLEX #30 tabs montelukast 10 mg tablet 10 mg PO DAILY #90 tabs 06/22/24 (Singulair) pantoprazole 40 mg tablet,delayed 40 mg PO DAILY #90 tabs 06/22/24 release (Protonix) semaglutide 2 mg/dose (8 mg/3 mL) See Rx Instructions .Route 06/22/24 subcutaneous pen injector .COMPLEX #3 mL tizanidine 4 mg tablet 4 mg PO BID PRN muscle spasticity 06/22/24 #60 tabs venlafaxine 75 mg capsule,extended 75 mg PO QAM #30 caps 06/22/24 release 24 hr oxycodone-acetaminophen 5 mg-325 1 tab PO Q4H PRN pain 7 days #42 06/23/24 mg tablet tabs promethazine 25 mg tablet 25 mg PO Q6H PRN nausea and 06/29/24 vomiting #20 tabs Allergies Allergy/AdvReac Type Severity Reaction Status Date / Time codeine Allergy ALGY-Rash Verified 06/23/24 10:14 diphenhydramine Allergy ALGY-Anaphy Verified 06/23/24 10:14 [From Benadryl] laxis hydrocodone Allergy ALGY-Rash Verified 06/23/24 10:14 latex Allergy ALGY-Bliste Verified 06/23/24 10:14 r liraglutide [From Victoza] Allergy ADR-Abdominal Verified 06/23/24 10:14 Pain sertraline [From Zoloft] Allergy worsening Verified 06/23/24 10:14 depression Sulfa (Sulfonamide Allergy ADR-Nausea Verified 06/23/24 10:14 Antibiotics) tramadol Allergy ADR-Vomitin Verified 06/23/24 10:14 g Review of Systems Const: Denies: fever(s) or chills Card: Denies: chest pain Resp: Denies: dyspnea GI: Denies: abdominal pain : Denies: dysuria, urinary frequency or urinary urgency Musc: Denies: neck pain or back pain Skin/Breast: Denies: rash PFSH ED PFSH: Medical History GERD (gastroesophageal reflux disease) Surgical History History of neck surgery History of back surgery 2019 fusion c5/6 History of sinus surgery ~2018 [place], [place] History of bilateral breast reduction surgery age 14 History of hysterectomy partial; one ovary remaining ~2009 Dr. Rain Hx of cholecystectomy ~2012 [facility] Family History Father Cancer nose removal Diabetes Hyperlipidemia Mother Cancer estrogen driven breast cancer Clotting disorder clotting disorder unknown Diabetes Hyperlipidemia Hypertension Stroke Grandmother Cancer leukemia(maternal) Dementia Diabetes Grandfather Cancer lung cancer(maternal) Diabetes maternal Lung disease maternal Grandfather Diabetes maternal Grandmother Diabetes paternal Brother Diabetes Family/Other Psychiatric illness maternal uncle Other Anesthesia complication Denies family history of CAD (coronary artery disease) Chronic kidney disease (CKD) Suicide Bleeding disorder Family history of premature coronary artery disease Social History Smoking and tobacco/nicotine status: never used tobacco/nicotine Second hand smoke exposure: No Alcohol intake: never Substance/Drug Use: never Physical Exam Const: COMMON NORMALS: no acute distress GENERAL APPEARANCE: cooperative and comfortable ORIENTATION/CONSCIOUSNESS: Yes awake, Yes oriented to person, Yes oriented to place and Yes oriented to time HENMT: COMMON NORMALS: normocephalic, atraumatic and hearing grossly normal bilaterally HEAD & SCALP: normocephalic and atraumatic Resp: COMMON NORMALS: normal respiratory effort, No retractions, No use of accessory muscles and clear to auscultation bilaterally AUSCULTATION: clear to auscultation bilaterally Cardio: COMMON NORMALS: regular rate, regular rhythm and No murmurs present (Cardio) RATE: regular rate RHYTHM: regular rhythm GI: COMMON NORMALS: Soft to palpation and No hepatosplenomegaly present AUSCULTATION: Yes normoactive bowel sounds PALPATION: Yes Soft to palpation, No Tenderness to palpation present (GI), No Guarding due to palpation present (GI) and Yes No hepatosplenomegaly present OTHER: Abdominal wall tenderness on the right upper quadrant with pain at the lower costal angle. There is no rash in that region no significant pain with percussion no peritoneal signs. Extremity: COMMON NORMALS: normal to inspection, capillary refill normal, no clubbing, cyanosis or edema, no calf tenderness and no pedal edema Neuro: SENSORIUM/ORIENTATION: Yes oriented to person, Yes oriented to place and Yes oriented to time Skin: COMMON NORMALS: no rashes or lesions noted GENERAL SKIN EXAM: no rashes or lesions noted OTHER: Incision from her back surgery is healing well there is no sign of any cellulitis on the back there is no sign of a pilonidal cyst of the gluteal cleft she has no pain in the perineum per her report examination of the buttocks no redness inflammation rash or abscess noted. Course Vital Signs: Vital signs: Vital Signs Temperature 98.2 F 06/29/24 12:24 Pulse Rate 88 06/29/24 17:20 Respiratory Rate 19 H 06/29/24 17:20 Blood Pressure 131/82 06/29/24 17:30 Pulse Oximetry 96 06/29/24 18:00 Oxygen Delivery Me thod Room Air 06/29/24 17:20 MDM - Back Pain/Injury Medical Decision Making Labs are unremarkable. Normal white count no sign of cystitis think patient has a gastroenteritis discussed the findings with the patient she became quite upset and said that she was not given take antiemetics to keep from vomiting and cannot keep food and fluids down. Reviewed with her that at this point she has stayed well-hydrated her BUN and creatinine are well within normal ranges. She is adamant that there is something else going wrong. We offered to CT her abdomen and she became upset and demanded instead to be discharged to give her Phenergan to use and so the promethazine. If she has change in symptoms that she can return at any point. Medical Records I reviewed the patient's medical records. Labs I reviewed the patient's lab results. 06/29/24 12:57 06/29/24 12:57 Laboratory Results WBC 10.58 10^3/uL (3.29-11.43) 06/29/24 12:57 RBC 4.59 10^6/uL (3.85-5.65) 06/29/24 12:57 Hgb 13.70 g/dL (11.27-16.99) 06/29/24 12:57 Hct 41.7 % (36-47) 06/29/24 12:57 MCV 90.8 fl (85-98) 06/29/24 12:57 MCH 29.8 pg (27-33) 06/29/24 12:57 MCHC 32.9 g/dL (30-55) 06/29/24 12:57 RDW 12.9 % (12.1-15.1) 06/29/24 12:57 Plt Count 224 10^3/cmm (157-399) 06/29/24 12:57 MPV 12.0 fL (7.4-10.4) H 06/29/24 12:57 Neut % (Auto) 72.4 % 06/29/24 12:57 Lymph % (Auto) 15.3 % 06/29/24 12:57 [place] % (Auto) 7.4 % 06/29/24 12:57 Eos % (Auto) 4.0 % 06/29/24 12:57 Baso % (Auto) 0.3 % 06/29/24 12:57 Neut # (Auto) 7.67 10^3/uL (1.8-7.7) 06/29/24 12:57 Lymph # (Auto) 1.6 10^3/uL (0.8-4.8) 06/29/24 12:57 [place] # (Auto) 0.8 10^3/uL (0.2-0.9) 06/29/24 12:57 Eos # (Auto) 0.4 10^3/uL (0.0-0.8) 06/29/24 12:57 Baso # (Auto) 0.0 10^3/uL (0.0-0.1) 06/29/24 12:57 Nucleated RBC % (auto) 0 % 06/29/24 12:57 Nucleated RBCs # 0.0 /100WBC 06/29/24 12:57 Sodium 144 mmol/L (136-145) 06/29/24 12:57 Potassium 3.8 mmol/L (3.5-5.1) 06/29/24 12:57 Chloride 106 mmol/L (98-107) 06/29/24 12:57 Carbon Dioxide 24 mmol/L (22-29) 06/29/24 12:57 Anion Gap 17.8 (5-19) 06/29/24 12:57 BUN 11 mg/dL (6-20) 06/29/24 12:57 Creatinine 0.7 mg/dL (0.5-0.9) 06/29/24 12:57 GFR Calculation 93.2 mL/min (90-130) 06/29/24 12:57 Glucose 89 mg/dL (65-115) 06/29/24 12:57 Calculated Osmolality 297 mOsm/kg (285-295) H 06/29/24 12:57 Calcium 9.0 mg/dL (8.5-10.5) 06/29/24 12:57 Total Bilirubin 0.3 mg/dL (0.15-1.2) 06/29/24 12:57 AST 18 U/L (0-32) 06/29/24 12:57 ALT 20 U/L (0-33) 06/29/24 12:57 Alkaline Phosphatase 57 U/L (35-105) 06/29/24 12:57 Total Protein 7.1 g/dL (6.6-8.7) 06/29/24 12:57 Albumin 3.8 g/dL (3.5-5.2) 06/29/24 12:57 Globulin 3.3 g/dL (1.3-4.6) 06/29/24 12:57 Lipase 30 U/L (13-60) 06/29/24 12:57 HCG, Qual Negative (Negative) 06/29/24 12:57 Urine Color Yellow (Yellow) 06/29/24 14:15 Urine Appearance Clear (CLEAR) 06/29/24 14:15 Urine pH 5.5 (5-7) 06/29/24 14:15 Ur Specific [place] 1.020 (1.005-1.030) 06/29/24 14:15 Urine Protein Negative (Negative) 06/29/24 14:15 Urine Glucose (UA) Negative (Normal) 06/29/24 14:15 Urine Ketones Negative (Negative) 06/29/24 14:15 Urine Blood Negative (Negative) 06/29/24 14:15 Urine Nitrate Negative (Negative) 06/29/24 14:15 Urine Bilirubin Negative (Negative) 06/29/24 14:15 Urine Urobilinogen 1.0 mg/dL (Negative) 06/29/24 14:15 Ur Leukocyte Esterase Negative (Negative) 06/29/24 14:15 Urine RBC 0-2 /hpf (0-2) 06/29/24 14:15 Urine WBC 0-5 /hpf (0-5) 06/29/24 14:15 Ur Squamous Epith Cells 0-5 /hpf (0-5) 06/29/24 14:15 Amorphous Sediment Not Reportable 06/29/24 14:15 Urine Bacteria None seen /hpf (NONE) 06/29/24 14:15 Hyaline Casts 0.81 /lpf 06/29/24 14:15 No radiology studies performed this visit Discharge Plan Discharge Patient Disposition: Home Clinical Impression: Gastroenteritis Condition: Stable Prescriptions: New promethazine 25 mg tablet 25 mg PO Q6H PRN (Reason: nausea and vomiting) Qty: 20 0RF No Action (DME) blood-glucose meter [Blood Glucose Monitoring] Kit See Rx Instructions .ROUTE .MEDSUPPLY Qty: 1 0RF Rx Instructions: check blood sugar daily and as directed (DME) Blood Glucose Test Strip See Rx Instructions .ROUTE .MEDSUPPLY Qty: 50 12RF Rx Instructions: check blood sugar daily and As directed (DME) lancets [Acti-Ovi Lancets] 28 gauge misc See Rx Instructions .Route Qty: 100 12RF Rx Instructions: check blood sugars daily and as directed deferasirox 500 mg tablet, dispersible 500 mg PO DAILY zolmitriptan 5 mg tablet See Rx Instructions PO .COMPLEX Qty: 10 5RF Rx Instructions: take 1 tab at onset of headache; if no relief, may repeat 1 tab after at least 2 hrs; max = 2 tabs/24 hrs PO ciprofloxacin HCl 500 mg tablet 500 mg PO BID Qty: 20 0RF epinephrine [EpiPen 2-Owen] 0.3 mg/0.3 mL auto-injector 0.3 mg IM Q15M PRN (Reason: anaphylaxis) Qty: 2 0RF venlafaxine 75 mg capsule,extended release 24hr 75 mg PO QAM Qty: 30 5RF semaglutide 2 mg/dose (8 mg/3 mL) pen injector See Rx Instructions .ROUTE .COMPLEX Qty: 3 5RF Dose Instruction: INJECT 1mg SUBCUTANEOUSLY WEEKLY Rx Instructions: INJECT 2mg SUBCUTANEOUSLY WEEKLY tizanidine 4 mg tablet 4 mg PO BID PRN (Reason: muscle spasticity) Qty: 60 2RF pantoprazole [Protonix] 40 mg tablet,delayed release (DR/EC) 40 mg PO DAILY Qty: 90 1RF levothyroxine 112 mcg tablet See Rx Instructions .ROUTE .COMPLEX Qty: 30 5RF Dose Instruction: TAKE ONE TABLET BY MOUTH DAILY Rx Instructions: TAKE ONE TABLET BY MOUTH DAILY celecoxib [Celebrex] 100 mg capsule 100 mg PO BID Qty: 60 5RF montelukast [Singulair] 10 mg tablet 10 mg PO DAILY Qty: 90 1RF oxycodone-acetaminophen 5-325 mg tablet 1 tab PO Q4H MDD 6 PRN (Reason: pain) 7 Days Qty: 42 0RF (DME) Bone Growth Stimulator See Rx Instructions .Route .MEDSUPPLY Qty: 1 0RF Rx Instructions: As directed metoprolol tartrate 25 mg tablet See Rx Instructions .ROUTE .COMPLEX Qty: 60 2RF Dose Instruction: TAKE ONE TABLET BY MOUTH TWICE DAILY Rx Instructions: TAKE ONE TABLET BY MOUTH TWICE DAILY pregabalin 150 mg capsule 150 mg PO BID Qty: 60 2RF oxycodone-acetaminophen 5-325 mg tablet 1 tab PO Q6H PRN (Reason: pain) Qty: 20 0RF Discharge Orders: Discharge ED (Routine); Ordered 06/29/24 Ordered By: Stanislav Rudd Referrals: Romina Knowles FNP [Primary Care Provider] - Discharge Diet: Clear Liquid Patient Instructions: Gastroenteritis (ED), Opioid Safety, Pain Management Activity Restrictions/Additional Instructions: Thank you for choosing [facility] for your healthcare needs today. It is very important that you follow up as instructed or that you return to the Emergency Department should you have concerns or if your condition changes or worsens in any way. You were seen in the emergency room with complaints of dizziness weakness and vomiting. Laboratory tests were negative. You also complained of some pain in the buttocks. Examination of the buttocks and gluteal cleft did not show any signs of infection your incision also appeared clean and healing well there is no sign of infection. Your laboratory tests were normal. There is no sign of infection no elevation of white count your chemistries and liver functions were normal. Examination of your abdomen there was no findings of acute intra-abdominal pathology. Recommend clear liquid diet for the next 48 to 72 hours. You can use the ondansetron as needed or use the promethazine that was prescribed at the time of discharge. If your symptoms worsen or change anyway you are welcome to return. We have offered to do a CT which you declined. If you change your mind you are welcome to return for further evaluation. Coding Level of Care Code ED [employer] for Jed Mckeon
[2024-06-29] MEDS: orphenadrine 30 mg/mL Inj 2 mL 60 MG IV (17:32)
[2024-06-29] MEDS: ketorolac 30 mg/mL INJ IVP (17:32)
[2024-06-29] MEDS: ondansetron 2 mg/ML SDV 2 mL 4 MG IVP (17:32)
--- NOTE | 2024-06-29 18:03 | PC.NURSE ---
ENTERED PATIENT ROOM AFTER CALL LIGHT PRESSED. PATIENT STATES HAVE THAT DOCTOR JUST DISCHARGE ME BECAUSE I'M NOT GOING TO BE BELITTLED. PROVIDER NOTIFIED OF PATIENT WISHES. RE-ENTERED THE ROOM WITH PROVIDER. PROVIDER ATTEMPTS TO EXPLAIN TO PATIENT DIAGNOSIS PER LAB FINDINGS. PROVIDER WILLING TO PROVIDE FURTHER TESTING AFTER SPEAKING WITH PATIENT. PATIENT REFUSES AND CONTINUES TO ASK FOR DISCHARGE PAPERWORK.
--- NOTE | 2024-06-29 18:24 | PC.NURSE ---
PATIENT WAS GIVEN DISCHARGE INSTRUCTIONS AND MEDICATIONS BEING SENT TO PHARMACY. PATIENT STATES THAT SHE WON'T BE PICKING THEM UP AND THAT SHE WILL SPEAK TO HER DOCTOR TOMORROW. PATIENT ALSO STATES UPON DISCHARGE THAT PROVIDER DOCUMENTED THAT I HAVE PAIN. I DID NOT SAY THAT. I SAID I HAD TENDERNESS. IF HE'S GOING TO DOCUMENT, HE NEEDS TO DOCUMENT CORRECTLY.
== END 2024-06-29 18:24 | disposition home or self-care (01) ==
PROVIDERS: Emergency Medicine; Emergency Provider Family Medicine; PCP Nurse Practitioner Family
DX: K52.9 Noninfective gastroenteritis and colitis, unspecified (principal)
CPT/HCPCS: 36415; 80053; 81001; 83690; 84703; 85025; 93005; 96374; 96375; 99285; J1885; J2360; J2405

== ENCOUNTER 2024-07-15 06:30 | Outpatient (RCR) | payer MEDICAID, SELFPAY | END 2024-08-14 23:59 | disposition home or self-care (01) | LOC: TPT 06:30 | PROVIDERS: PCP Nurse Practitioner Family; Visit Provider Orthopaedic Surgery | DX: M54.2 Cervicalgia (principal); G89.29 Other chronic pain | CPT/HCPCS: 97110; 97140; 97164 ==

== ENCOUNTER 2024-07-20 14:10 | Outpatient (CLI) | payer MEDICAID, SELFPAY ==
--- NOTE | 2024-07-20 | MM_ITS ---
WS: [id number] BILATERAL 3D TOMOSYNTHESIS DIGITAL SCREENING MAMMOGRAPHY WITH CAD CLINICAL INFORMATION: ANNUAL SCREEN HISTORY: Screening mammogram. History of breast reduction COMPARISON: 2022 TECHNIQUE: Bilateral CC and MLO views. FINDINGS: Scattered fibroglandular densities bilaterally. No suspicious focal mass, asymmetry, calcifications, or architectural distortion. No evidence of malignancy. MM/MM scr BI tomosynthesis [id number] IMPRESSION: DENSITY: There are scattered areas of fibroglandular density. BI-RADS: 1 - Negative. FOLLOW UP: 1 Year Follow-up Recommend return to annual screening mammography.
== END 2024-07-20 14:11 | disposition home or self-care (01) ==
LOC: RAD 14:12
PROVIDERS: PCP Nurse Practitioner Family; Visit Provider Nurse Practitioner Family
DX: Z12.31 Encounter for screening mammogram for malignant neoplasm of breast (principal); R92.323 Mammographic fibroglandular density, bilateral breasts
CPT/HCPCS: 77063; 77067

== ENCOUNTER → 2024-07-27 10:59 | Outpatient (BNVA) | payer MEDICAID, SELFPAY | PROVIDERS: PCP Nurse Practitioner Family; Visit Provider Nurse Practitioner Family | DX: J02.9 Acute pharyngitis, unspecified (principal) | CPT/HCPCS: 87071; 87880 ==

== ENCOUNTER → 2024-08-06 09:45 | Outpatient (BNVA) | payer MEDICAID, SELFPAY | PROVIDERS: PCP Nurse Practitioner Family; Visit Provider Orthopaedic Surgery | DX: Z98.1 Arthrodesis status (principal) | CPT/HCPCS: 72100 ==

== ENCOUNTER 2024-08-15 06:30 | Outpatient (RCR) | payer MEDICAID, SELFPAY | END 2024-09-11 23:59 | disposition home or self-care (01) | LOC: TPT 06:30 | PROVIDERS: PCP Nurse Practitioner Family; Visit Provider Orthopaedic Surgery | DX: M54.2 Cervicalgia (principal); G89.29 Other chronic pain | CPT/HCPCS: 97110 ==

== ENCOUNTER 2024-09-12 06:00 | Outpatient (RCR) | payer MEDICAID, SELFPAY | END 2024-10-12 23:59 | disposition home or self-care (01) | LOC: TPT 06:00 | PROVIDERS: PCP Nurse Practitioner Family; Visit Provider Orthopaedic Surgery | DX: M54.2 Cervicalgia (principal); G89.29 Other chronic pain | CPT/HCPCS: 97110 ==

== ENCOUNTER 2024-10-13 06:00 | Outpatient (RCR) | payer MEDICAID, SELFPAY | END 2024-11-11 23:59 | disposition home or self-care (01) | LOC: TPT 06:00 | PROVIDERS: PCP Nurse Practitioner Family; Visit Provider Orthopaedic Surgery | DX: M54.2 Cervicalgia (principal); G89.29 Other chronic pain | CPT/HCPCS: 97110 ==

== ENCOUNTER 2024-10-17 14:47 | Emergency (ER) | payer MEDICAID, SELFPAY ==
[2024-10-17 14:56] VITALS: BP 134/90; PULSE 99; RESP 18; TEMP 36.6; O2SAT 97
[2024-10-17] MEDS: sodium chloride 0.9% 500 ML IV (15:27)
--- NOTE | 2024-10-17 15:27 | ED_ITS ---
HPI - Back Pain/Injury General: Chief Complaint: Back Pain/Injury Stated Complaint: low back pain into right leg Time Seen by Provider: 10/17/24 15:07 Source: patient Mode of arrival: wheelchair Limitations: no limitations History of Present Illness: 39yo female presents with family for zay luation of low back pain that is radiating into the right buttock and down the right leg. Patient reports that she did have lumbar spinal fusion with Dr. Camp 5 months ago. States that she has just recently started physical therapy. Reports that this pain has been ongoing and worsening over the past week. She has tried the following with no improvement: Cyclobenzaprine, tizanidine, oxycodone, multiple nihx-ykw-wgyzbik muscle rubs, TENS unit, ibuprofen. Patient states that she has contacted Dr. Camp's office and has an appointment on 10/22/2024. Patient denies incontinence, fall/trauma/known injury, recent illness, fever, loss of feeling of the lower extremities, weakness of the lower extremity Associated symptoms: Deny abdominal pain, chills, dysuria, fever(s), nausea or vomiting Related Data Home Medications ?Medication ?Instructions ?Recorded ?Confirmed levocetirizine 5 mg tablet (Xyzal) 5 mg PO QPM 5 10/17/24 Previous Rx's ?Medication ?Instructions ?Recorded blood sugar diagnostic (Blood #50 ea 04/19/23 Glucose Test strips) blood-glucose meter (Blood Glucose #1 ea 04/19/23 Monitoring kit) lancets 28 gauge (Acti-Ovi #100 ea 04/19/23 Lancets) epinephrine 0.3 mg/0.3 mL 0.3 mg (0.3 mL) IM Q15M PRN 01/17/24 injection, auto-injector (EpiPen anaphylaxis #2 ea 2-Owen) zolmitriptan 5 mg tablet See Rx Instructions PO .COMP OLLIE 02/26/24 #10 tabs Bone Growth Stimulator #1 ea 05/25/24 levothyroxine 112 mcg tablet See Rx Instructions .Rout e 06/22/24 .COMPLEX #30 tabs pantoprazole 40 mg tablet,delayed 40 mg PO DAILY #90 t abs 06/22/24 release (Protonix) oxycodone-acetaminophen 5 mg-325 1 tab PO Q4H PRN pain 7 days #42 06/23/24 mg tablet tabs promethazine 25 mg tablet 25 mg PO Q6H PRN nausea and 06/29/24 vomiting #20 tabs metoprolol tartrate 25 mg tablet See Rx Instructions . Route 08/13/24 .COMPLEX #60 tabs dulaglutide 0.75 mg/0.5 mL 0.75 mg (0.5 mL) SUBCUT .we ekly #2 08/19/24 subcutaneous pen injector mL (Trulicity) pregabalin 150 mg capsule 150 mg PO BID #60 caps 10/06 tizanidine 4 mg tablet 4 mg PO BID PRN muscle spast icity 10/06/24 Held on 10/17/24. #60 tabs Instructions: Resume on 10/27/24. Hold while taking orphenadrine orphenadrine citrate 100 mg 100 mg PO BID PRN pain spa sm #20 10/17/24 tablet,extended release tabs Allergies Allergy/AdvReac Type Severity Reaction Status Date / Time codeine Allergy ALGY-Rash Verified 10/17/24 15:01 diphenhydramine (From Allergy ALGY-Anaphy Verified 10/17/24 15:01 Benadryl) laxis hydrocodone Allergy ALGY-Rash Verified 10/17/24 15:01 latex Allergy ALGY-Bliste Verified 10/17/24 15:01 r liraglutide (From Victoza) Allergy ADR-Abdominal Verified 10/17/24 15:01 Pain semaglutide (From Ozempic) Allergy ADR-Vomitin Verified 10/17/24 15:01 g sertraline (From Zoloft) Allergy worsening Verified 10/17/24 15:01 depression Sulfa (Sulfonamide Allergy ADR-Nausea Verified 10/17/24 15:01 Antibiotics) tramadol Allergy ADR-Vomitin Verified 10/17/24 15:01 g Review of Systems Const: Denies: fever(s), chills or body aches Card: Denies: chest pain Resp: Denies: dyspnea GI: Denies: abdominal pain, nausea, vomiting or diarrhea : Denies: flank pain, difficulty voiding, dysuria or urinary incontinence Musc: Reports: back pain; Denies: neck pain Neuro: Denies: headache(s) or numbness in extremities PFSH ED PFSH: Medical History GERD (gastroesophageal reflux disease) Surgical History History of neck surgery History of back surgery 2019 fusion c5/6 History of sinus surgery ~2018 [place], [place] History of bilateral breast reduction surgery age 14 History of hysterectomy partial; one ovary remaining ~2009 Dr. Rain Hx of cholecystectomy ~2012 [facility] Family History Father Cancer nose removal Diabetes Hyperlipidemia Mother Cancer estrogen driven breast cancer Clotting disorder clotting disorder unknown Diabetes Hyperlipidemia Hypertension Stroke Grandmother Cancer leukemia(maternal) Dementia Diabetes Grandfather Cancer lung cancer(maternal) Diabetes maternal Lung disease maternal Grandfather Diabetes maternal Grandmother Diabetes paternal Brother Diabetes Family/Other Psychiatric illness maternal uncle Other Anesthesia complication Denies family history of CAD (coronary artery disease) Chronic kidney disease (CKD) Suicide Bleeding disorder Family history of premature coronary artery disease Social History Smoking and tobacco/nicotine status: never used tobacco/nicotine Second hand smoke exposure: No Alcohol intake: never Substance/Drug Use: never Physical Exam Const: COMMON NORMALS: no acute distress, patient oriented x3 and alert GENERAL APPEARANCE: cooperative ORIENTATION/CONSCIOUSNESS: Yes awake OTHER: Patient is sitting upright on the stretcher intermittently grimacing as if in pain, but is in no acute distress. She is interactive with exam appropriately. Family is at bedside HENMT: COMMON NORMALS: normocephalic and atraumatic HEAD & SCALP: normocephalic and atraumatic Neck/C-Spine: COMMON NORMALS: full ROM Chest: CHEST: Yes Symmetrical chest wall rise Resp: COMMON NORMALS: normal respiratory effort EFFORT & INSPECTION: Yes symmetric chest movement and No abnormal respiratory pattern Back/Pelvis: LUMBAR SPINE/LOWER BACK: Yes ROM limited and Yes straight leg raise positive right (Significant pain with movement of the right leg) Extremity: COMMON NORMALS: capillary refill normal NARRATIVE EXTREMITY EXAM: Pain with straight leg raise on right. Equal plantarflexion and dorsiflexion bilateral lower extremity. Equal flexion of the great toes bilaterally. Right sensation reported slightly decreased compared to left. Pedal pulses 2+, capillary refill less than 3 seconds Neuro: COMMON NORMALS: patient oriented x3 and moves all extremities SENSORIUM/ORIENTATION: Yes alert Psych: COMMON NORMALS: cooperative ATTITUDE: Yes calm Course Reevaluation(s): Reevaluation #1: Some improvement in pain after medications. Able to complete exam. Tenderness throughout lumbar region midline to right lower buttock. Time: 16:00 Reevaluation #2: Patient returned from CT scan noted to be crying in pain. Patient states the pain has increased again and is sharp/spasming. Ketorolac, orphenadrine, and dexamethasone provided approximately 1 hour ago. Will proceed with morphine and ondansetron. Time: 16:56 Vital Signs: Vital signs: Vital Signs Temperature 97.9 F 10/17/24 14:56 Pulse Rate 88 10/17/24 17:05 Respiratory Rate 22 H 10/17/24 17:03 Blood Pressure 144/88 10/17/24 17:05 Pulse Oximetry 96 10/17/24 17:05 Oxygen Delivery Me thod Room Air 10/17/24 17:05 MDM - Back Pain/Injury Medical Decision Making 39yo female presents with family for evaluation of low back pain that is radiating into the right buttock and down the right leg. Patient reports that she did have lumbar spinal fusion with Dr. Camp 5 months ago. States that she has just recently started physical therapy. Reports that this pain has been ongoing and worsening over the past week. She has tried the following with no improvement: Cyclobenzaprine, tizanidine, oxycodone, multiple ulwx-cqg-hlytwfh muscle rubs, TENS unit, ibuprofen. Patient states that she has contacted Dr. Camp's office and has an appointment on 10/22/2024. Patient denies inc ontinence, fall/trauma/known injury, recent illness, fever, loss of feeling of the lower extremities, weakness of the lower extremity. Patient is nontoxic in appearance. Vital signs are stable. Differential diagnoses include but are not limited to: Lumbar radiculopathy, sciatica, spinal epidural abscess, hardware failure, fracture, stenosis, cauda equina Will proceed with ketorolac, orphenadrine, and dexamethasone to try to help with the significant discomfort, then reevaluate. No indication of cauda equina. Patient was able to make position changes after initial medications. She did display tenderness to the midline and right lumbar area. Given patient's sudden increase in pain as well as recent history of fusion, will proceed with CT scan. Chart review does reveal that patient had a fluid collection within the laminectomy defect when she was seen in the ER and evaluated for low back pain on 06/13/2024. CT scan does show L4-5 postsurgical changes with developed lucency and mild sclerosis at the inferior L4 vertebral body adjacent to the interbody spacer. Decreased postoperative fluid collection with residual area of edema/fluid measuring 2.6 x 2.6 x 8.7 cm, decreased from previous measurement of 3.5 x 7.6 x 10.0 cm. Discussed findings with patient and family. Patient does have a scheduled appointment with Dr. Camp on 10/22/2024. Discussed with patient we will pr escribe short course pain medication as well as change her muscle relaxer. Sedation precautions provided and discussed interactions with other medications. Strongly encourage patient to contact Dr. Camp's office Saturday with an update of her symptoms as well as to notify them of her ER visit over the weekend. Return precautions provided. Patient states understanding and has no further questions or concerns at this time. Medical Records I reviewed the patient's medical records. Labs Radiology Impressions Lumbar Spine CT 10/17/24 16:16 IMPRESSION: 1. L4-L5 postsurgical changes with developed lucency and mild sclerosis at the inferior L4 vertebral body adjacent to interbody spacer. 2. Decreased postoperative fluid collection with residual area of edema/fluid as above. ADDENDUM: 10/17/24 [id number] There also appears to be mild lucency at the superior L5 vertebral body adjacent to interbody spacer. Consideration for cystic change or possibly loosening with note of no perihardware lucency around the transpedicular screws. All radiology interpretation(s) finalized by discharge Discharge Plan Discharge Patient Disposition: Home Clinical Impression: Lumbar back pain with radiculopathy affecting right lower extremity, Status post lumbar laminectomy Fluid collection at surgical site Qualifiers: Encounter type: sequela Qualified Code(s): T88.8XXS - Other specified complications of surgical and medical care, not elsewhere classified, sequela Condition: Stable Prescriptions: New orphenadrine citrate 100 mg tablet extended release 100 mg PO BID PRN (Reason: pain spasm) Qty: 20 0RF Held tizanidine 4 mg tablet 4 mg PO BID PRN (Reason: muscle spasticity) Qty: 60 2RF Hold Instructions: Resume on 10/27/24. Hold while taking orphenadrine No Action (DME) blood-glucose meter [Blood Glucose Monitoring] Kit See Rx Instructions .ROUTE .MEDSUPPLY Qty: 1 0RF Rx Instructions: check blood sugar daily and as directed (DME) Blood Glucose Test Strip See Rx Instructions .ROUTE .MEDSUPPLY Qty: 50 12RF Rx Instructions: check blood sugar daily and As directed (DME) lancets [Acti-Ovi Lancets] 28 gauge misc See Rx Instructions .Route Qty: 100 12RF Rx Instructions: check blood sugars daily and as directed zolmitriptan 5 mg tablet See Rx Instructions PO .COMPLEX Qty: 10 5RF Rx Instructions: take 1 tab at onset of headache; if no relief, may repeat 1 tab after at least 2 hrs; max = 2 tabs/24 hrs PO epinephrine [EpiPen 2-Owen] 0.3 mg/0.3 mL auto-injector 0.3 mg IM Q15M PRN (Reason: anaphylaxis) Qty: 2 0RF pantoprazole [Protonix] 40 mg tablet,delayed release (DR/EC) 40 mg PO DAILY Qty: 90 1RF levothyroxine 112 mcg tablet See Rx Instructions .ROUTE .COMPLEX Qty: 30 5RF Dose Instruction: TAKE ONE TABLET BY MOUTH DAILY Rx Instructions: TAKE ONE TABLET BY MOUTH DAILY oxycodone-acetaminophen 5-325 mg tablet 1 tab PO Q4H MDD 6 PRN (Reason: pain) 7 Days Qty: 42 0RF (DME) Bone Growth Stimulator See Rx Instructions .Route .MEDSUPPLY Qty: 1 0RF Rx Instructions: As directed metoprolol tartrate 25 mg tablet See Rx Instructions .ROUTE .COMPLEX Qty: 60 5RF Dose Instruction: TAKE ONE TABLET BY MOUTH TWICE DAILY Rx Instructions: TAKE ONE TABLET BY MOUTH TWICE DAILY Trulicity 0.75 mg/0.5 mL pen injector 0.75 mg SUBCUT .weekly Qty: 2 2RF pregabalin 150 mg capsule 150 mg PO BID Qty: 60 0RF promethazine 25 mg tablet 25 mg PO Q6H PRN (Reason: nausea and vomiting) Qty: 20 0RF levocetirizine [Xyzal] 5 mg Tablet 5 mg PO QPM Discharge Orders: Discharge ED (Routine); Ordered 10/17/24 Ordered By: Kyler Adamson Referrals: Romina Knowles FNP [Primary Care Provider] - Discharge Diet: Usual diet Discharge Activity: Increase activity as tolerated Patient Instructions: Opioid Safety, Pain Management Activity Restrictions/Additional Instructions: Oxycodone?acetaminophen has been sent to your pharmacy for moderate to severe pain. Please not drive or operate heavy machinery while taking this medication Orphenadrine has been sent to the pharmacy to help with spasms. This is a long- acting medication that typically lasts 12 hours. Do not take your previously prescribed tizanidine or cyclobenzaprine while you are taking this medication Please call Dr. Camp's office Saturday with an update of your ER visit and with an update of symptoms Return to the emergency department if any rapid worsening symptoms, incontinence, groin numbness/tingling, weakness in your lower extremities, and as needed Print Language: Upper Sorbian Coding Level of Care Code ED Service Control Operator for Jed Mckeon
[2024-10-17] MEDS: ketorolac 30 mg/mL INJ IVP (15:29)
[2024-10-17] MEDS: orphenadrine 30 mg/mL Inj 2 mL 60 MG IVP (15:31)
[2024-10-17] MEDS: dexamethasone 4 mg/mL INJ IVP (15:35)
[2024-10-17 15:59] VITALS: BP 112/91; PULSE 87; O2SAT 96
--- NOTE | 2024-10-17 16:16 | CTR_ITS ---
PROCEDURE INFORMATION: Exam: CT Lumbar Spine Without Contrast Exam date and time: 10/17/2024 4:44 PM Age: 39 years old Clinical indication: Low back pain; Prior surgery; Surgery date: 1-6 months; Surgery type: Lumbar fusion; Additional info: Pain, myelopathy, lumbar fusion 05/2024 TECHNIQUE: Imaging protocol: Computed tomography of the lumbar spine without contrast. Radiation optimization: All CT scans at this facility use at least one of these dose optimization techniques: automated exposure control; mA and/or kV adjustment per patient size (includes targeted exams where dose is matched to clinical indication); or iterative reconstruction. COMPARISON: CT lumbar spine wo con* [id number] 06/13/2024 12:56 PM RADIATION DOSE METRICS: Total DLP (mGy-cm): 1394.4 FINDINGS: Bones/joints: Redemonstrated L4-L5 laminectomy changes and posterior instrumented fusion. Mildly increased lucency with adjacent sclerosis at the inferior L4 vertebral body adjacent to interbody spacer measuring up to 4 mm superiorly on coronal image 12 of series 17 and 3 mm anteriorly on sagittal image 32 of series 14. No perihardware lucency along the screws. No acute fracture. Stable mild multilevel degenerative changes with stable slight retrolisthesis of L3 on L4 and slight anterolisthesis of L4 on L5. No severe spinal canal or neural foraminal stenosis. Soft tissues: Decreased postoperative fluid collection with residual area of edema/fluid at the deep subcutaneous level measuring approximately 2.6 x 2.6 x 8.7 cm, previously 3.5 x 7.6 x 10.0 cm extending to the laminectomy defect. CT/CT lumbar spine wo con* [id number] IMPRESSION: 1. L4-L5 postsurgical changes with developed lucency and mild sclerosis at the inferior L4 vertebral body adjacent to interbody spacer. 2. Decreased postoperative fluid collection with residual area of edema/fluid as above.
[2024-10-17] MEDS: ondansetron 2 mg/ML SDV 2 mL 4 MG IVP (17:02)
[2024-10-17 17:03] VITALS: RESP 22; O2SAT 98
[2024-10-17] MEDS: morphine 4 mg/mL SDV 1 mL IVP (17:03)
[2024-10-17 17:05] VITALS: BP 144/88; PULSE 88; O2SAT 96
[2024-10-17 18:26] VITALS: BP 138/91; PULSE 88; O2SAT 96
== END 2024-10-17 18:27 | disposition home or self-care (01) ==
PROVIDERS: Emergency Provider Nurse Practitioner; PCP Nurse Practitioner Family
DX: M54.16 Radiculopathy, lumbar region (principal); M96.1 Postlaminectomy syndrome, not elsewhere classified; T88.8XXS Other specified complications of surgical and medical care, not elsewhere classified, sequela; Z79.85 Long-term (current) use of injectable non-insulin antidiabetic drugs; X58.XXXS Exposure to other specified factors, sequela
CPT/HCPCS: 72131; 96361; 96374; 96375; 99285; J1100; J1885; J2270; J2360; J2405; J7040

== ENCOUNTER → 2024-10-20 07:52 | Outpatient (BNVA) | payer MEDICAID, SELFPAY | PROVIDERS: PCP Nurse Practitioner Family; Visit Provider Orthopaedic Surgery | DX: Z98.1 Arthrodesis status (principal) | CPT/HCPCS: 72100 ==

== ENCOUNTER 2024-10-21 13:47 | Outpatient (CLI) | payer MEDICAID, SELFPAY ==
--- NOTE | 2024-10-21 14:30 | MR_ITS ---
WS: [id number] MRI LUMBAR SPINE NONCONTRAST HISTORY: lumbar pain COMPARISON: 04/20/2024 TECHNIQUE: Sagittal and axial multisequence imaging is submitted. Since the prior MRI of 04/20/2024 patient is undergone a posterior lumbar fusion at L4-5. Interbody disc spacer also at L4-5. L4 anterolisthesis by 3 mm. The remaining lumbar vertebral bodies are normally aligned. Disc spaces are preserved. Conus terminates normally at L1-2 disc level. L1-L2: Normal. L2-L3: Mild annular disc bulging with mild ligamentum flavum and facet arthritis.. Mild foraminal narrowing. L3-L4: Mild annular disc bulging with osteophytic ridging. Mild facet arthritis. Very mild central and subarticular recess stenosis and foraminal stenosis. Very minimal progression of stenosis since 04/20/2024. L4-L5: Large posterior laminectomy defect. Patulous thecal sac. Nerve roots are in the periphery. No stenosis. L5-S1: Mild disc bulging. Small central disc protrusion with minimal encroachment upon the LEFT S1 nerve root but no displacement. Mild facet arthritis. No stenosis. Paravertebral soft tissues are negative. MR/MR lumbar spine wo con* [id number] IMPRESSION: 1. Interval placement of a posterior L4-5 fusion with interbody spacer and joyner inectomy defect since 04/20/2024. Associated paraspinal soft tissue changes. No large fluid collections. 2. Very minimal progression of stenosis at L3-4 since the prior examination. 3. Small central disc protrusion at L5-S1. Minimal encroachment upon the LEFT S1 nerve root. 4. Minimal foraminal narrowing at L2-3.
== END 2024-10-21 13:48 | disposition home or self-care (01) ==
LOC: RAD 13:47
PROVIDERS: PCP Nurse Practitioner Family; Visit Provider Orthopaedic Surgery
DX: T88.8XXS Other specified complications of surgical and medical care, not elsewhere classified, sequela (principal); X58.XXXS Exposure to other specified factors, sequela; Z98.1 Arthrodesis status; M48.062 Spinal stenosis, lumbar region with neurogenic claudication; M51.16 Intervertebral disc disorders with radiculopathy, lumbar region; M79.89 Other specified soft tissue disorders; M51.27 Other intervertebral disc displacement, lumbosacral region; M43.16 Spondylolisthesis, lumbar region; M51.369 Other intervertebral disc degeneration, lumbar region without mention of lumbar back pain or lower extremity pain; M24.28 Disorder of ligament, vertebrae; M47.896 Other spondylosis, lumbar region; M25.78 Osteophyte, vertebrae; M51.379 Other intervertebral disc degeneration, lumbosacral region without mention of lumbar back pain or lower extremity pain; M47.897 Other spondylosis, lumbosacral region
CPT/HCPCS: 72148

== ENCOUNTER → 2024-12-30 11:49 | Outpatient (BNVA) | payer MEDICAID, BC, SELFPAY | PROVIDERS: PCP Nurse Practitioner Family; Visit Provider Nurse Practitioner Family | DX: E11.65 Type 2 diabetes mellitus with hyperglycemia (principal); E50.9 Vitamin A deficiency, unspecified | CPT/HCPCS: 80053; 80061; 83036; 84443; 84590; 85025 ==

== ENCOUNTER → 2025-02-02 13:38 | Outpatient (BNVA) | payer BC, MEDICAID, SELFPAY | PROVIDERS: PCP Nurse Practitioner Family; Visit Provider Orthopaedic Surgery | DX: M48.062 Spinal stenosis, lumbar region with neurogenic claudication (principal); M51.16 Intervertebral disc disorders with radiculopathy, lumbar region; Z98.1 Arthrodesis status | CPT/HCPCS: 72100 ==

== ENCOUNTER → 2025-02-09 11:27 | Outpatient (BNVA) | payer BC, MEDICAID, SELFPAY | PROVIDERS: PCP Nurse Practitioner Family; Visit Provider Nurse Practitioner Family | DX: R00.2 Palpitations (principal) | CPT/HCPCS: 80053; 85025 ==

== ENCOUNTER → 2025-03-09 10:47 | Outpatient (BNVA) | payer BC, MEDICAID, SELFPAY | PROVIDERS: PCP Nurse Practitioner Family; Visit Provider Anesthesiology Pain Medicine | DX: M16.9 Osteoarthritis of hip, unspecified (principal); M25.552 Pain in left hip; M25.551 Pain in right hip | CPT/HCPCS: 73521 ==

== ENCOUNTER → 2025-04-06 14:28 | Outpatient (BNVA) | payer MEDICAID, SELFPAY | PROVIDERS: PCP Nurse Practitioner Family; Visit Provider Nurse Practitioner Family | DX: E03.9 Hypothyroidism, unspecified (principal); E55.9 Vitamin D deficiency, unspecified; R53.83 Other fatigue | CPT/HCPCS: 80053; 82306; 82607; 84439; 84443; 85025 ==

== ENCOUNTER → 2025-04-07 14:20 | Outpatient (BNVA) | payer MEDICAID, SELFPAY | PROVIDERS: PCP Nurse Practitioner Family; Visit Provider Anesthesiology Pain Medicine | DX: Z53.9 Procedure and treatment not carried out, unspecified reason (principal) | CPT/HCPCS: 77002 ==

== ENCOUNTER → 2025-06-02 07:46 | Outpatient (BNVA) | payer MEDICAID, SELFPAY | PROVIDERS: PCP Nurse Practitioner Family; Visit Provider Student in an Organized Health Care Education/Training Program | DX: M16.0 Bilateral primary osteoarthritis of hip (principal); S73.191A Other sprain of right hip, initial encounter; X58.XXXA Exposure to other specified factors, initial encounter | CPT/HCPCS: 73523 ==

== ENCOUNTER → 2025-06-14 13:42 | Outpatient (BNVA) | payer MEDICAID, SELFPAY | PROVIDERS: PCP Nurse Practitioner Family; Visit Provider Nurse Practitioner Family | DX: R00.2 Palpitations (principal) | CPT/HCPCS: 80053; 83735; 84439; 84443; 85025 ==